=== PATIENT | female | born 1960 | race Caucasian/White ===

== ENCOUNTER → 2016-10-06 | Outpatient (CLI) | payer OTHER ==
--- NOTE | 2016-10-06 11:10 | XR ---
EXAMINATION TYPE: XR shoulder complete LT DATE OF EXAM: 10/06/2016 10:56 AM COMPARISON: NONE HISTORY: 56 year-old female left shoulder sprain after fall on 09/25/2016 TECHNIQUE: 3 views FINDINGS: There is mild degenerative spurring at the AC joint. Subacromial space there is preserved. No tendern ess or bursal calcifications. Small delineation to the greater tuberosity. Visualized left hemithorax is clear. No acute fracture or dislocation. IMPRESSION: No acute osseous abnormality seen. There is mild degenerative spurring at the AC joint.
--- NOTE | 2016-10-06 11:12 | XR ---
EXAMINATION TYPE: XR lumbar spine 2 or 3V DATE OF EXAM: 10/06/2016 10:56 AM COMPARISON: NONE HISTORY: 56 year-old female left shoulder sprain, lumbar sprain after fall on 09/25/2016 TECHNIQUE: 3 views FINDINGS: 5 lumbar type vertebral bodies. There is facet degenerative change in the lower lumbar spine. Vertebr al body heights are preserved and alignment is maintained. Disc interspaces also appear relatively ma intained. IMPRESSION: No vertebral compression collapse or malalignment. Facet arthropathy in the lower lumbar spine.
== END | disposition home or self-care (01) ==
LOC: RADXRMAIN 10:34
PROVIDERS: ATTEND Emergency Medicine
DX: M19.011 Primary osteoarthritis, right shoulder (principal); M46.96 Unspecified inflammatory spondylopathy, lumbar region
CPT/HCPCS: 72100

== ENCOUNTER → 2016-10-08 | Outpatient (CLI) | payer MEDICAID, OTHER ==
--- NOTE | 2016-10-08 13:26 | XR ---
EXAMINATION TYPE: XR clavicle LT DATE OF EXAM ORDERED: 10/08/2016 1:12 PM HISTORY: Pain following trauma. COMPARISON: Previous study dated 10/06/2016. FINDINGS: The clavicle is unremarkable. The coracoclavicular distance is normal. There are mild hype rtrophic changes present in the left AC joint. IMPRESSION: 1. NO ACUTE OSSEOUS LESION. 2. MILD DEGENERATIVE CHANGE.
== END | disposition home or self-care (01) ==
LOC: RADXRMAIN 12:54
PROVIDERS: ATTEND Emergency Medicine
DX: M25.812 Other specified joint disorders, left shoulder (principal); M25.512 Pain in left shoulder

== ENCOUNTER 2017-03-22 19:37 | Observation (INO) | payer MEDICAID ==
[2017-03-22] MEDS ORDERED: METOCLOPRAMIDE 5 MG/ML 2 ML VIAL IVP STA (20:35)
[2017-03-22] MEDS ORDERED: HYDROmorphone 1 MG/ML 1 ML SYRINGE IVP STA (20:35)
[2017-03-22] MEDS ORDERED: SODIUM CHLORIDE 0.9% 1,000 ML IV STA (20:35)
--- NOTE | 2017-03-22 20:42 | ED ---
General Adult HPI - General Chief complaint: Chest Pain Stated complaint: chest/back/abdominal pain Time Seen by Provider: 03/22/17 20:31 Source: patient, family, RN notes reviewed Mode of arrival: wheelchair Limitations: no limitations - History of Present Illness Initial comments: Patient is a pleasant 56-year-old female presenting to the emergency department with right abdominal discomfort. Patient had mild symptoms on Thursday that resolved yesterday. Symptoms have been waxing and waning throughout the day today, mostly severe. Patient has nausea and has vomited when symptoms get severe. Patient did have some chest discomfort prior to arrival however that has resolved. Discomfort is mostly right lower abdomen/flank with some extension towards the back. No history of similar symptoms previously. No fever. No hematuria or dysuria. Discomfort is moderate at this time. - Related Data Home Medications Medication Instructions Recorded Confirmed Cilostazol [Pletal] 100 mg PO HS 03/16/14 03/22/17 Multivitamins, Thera [Multivitamin 1 tab PO HS 03/16/14 03/22/17 (formulary)] Zolpidem Tartrate [Zolpidem 12.5 mg PO HS 04/21/16 03/22/17 Tartrate ER] Cyclobenzaprine [Flexeril] 10 mg PO HS 03/22/17 03/22/17 Etodolac [Lodine] 400 mg PO HS 03/22/17 03/22/17 Loratadine 10 mg PO HS 03/22/17 03/22/17 Vitamin C/Biotin [Hair, Skin and 1 tab PO HS 03/22/17 03/22/17 Nails] Previous Rx's Medication Instructions Recorded Atorvastatin [Lipitor] 20 mg PO HS #30 tab 04/24/16 Allergies Allergy/AdvReac Type Severity Reaction Status Date / Time quinine Allergy Severe Rash/Hives Verified 03/22/17 20:23 Review of Systems ROS Statement: Those systems with pertinent positive or pertinent negative responses have been documented in the HPI. ROS Other: All systems not noted in ROS Statement are negative. Constitutional: Denies: fever Eyes: Denies: eye pain ENT: Denies: ear pain Respiratory: Denies: cough Cardiovascular: Reports: chest pain (Resolved) Gastrointestinal: Reports: abdominal pain, nausea, vomiting Genitourinary: Denies: hematuria Musculoskeletal: Reports: back pain (Right lower) Skin: Denies: rash Neurological: Denies: weakness Past Medical History Past Medical History: GERD/Reflux, Osteoarthritis (OA), Sleep Apnea/CPAP/BIPAP Additional Past Medical History / Comment(s): currently experiencing upset stomach and freq diarrhea after eating.Hx NO CPAP, IRREGULAR HEART BEAT DURING , murmur, HX OF JAUNDICE 1974- HOSPITALIZED 2 WEEKS, CURVATURE OF SPINE WITH BACK PAIN, HYPOGLYCEMIA, RESTLESS LEG SYNDROME, arthritis R knee. History of Any Multi-Drug Resistant Organisms: None Reported Past Surgical History: Section, Orthopedic Surgery, Uterine Ablation Additional Past Surgical History / Comment(s): RT KNEE ARTHROSCOPY, X2 , right shoulder rotator cuff repair, x 2, R foot spur removal, colonoscopy. Past Anesthesia/Blood Transfusion Reactions: Motion Sickness, Postoperative Nausea & Vomiting (PONV) Additional Past Anesthesia/Blood Transfusion Reaction / Comment(s): mother had no problems with prior blood transfusion Past Psychological History: ADD/ADHD Smoking Status: Never smoker Past Alcohol Use History: None Reported Past Drug Use History: None Reported - Past Family History Father Family Medical History: Musculoskeletal Disorder, Neurologic Disorder Additional Family Medical History / Comment(s): Father of Brenna Gherigs disease in his 60's Mother Additional Family Medical History / Comment(s): Mother of Mylodysplasia at the age of 80 yrs. General Exam Limitations: no limitations General appearance: alert, in no apparent distress Head exam: Present: atraumatic Eye exam: Present: normal appearance, PERRL ENT exam: Present: normal oropharynx Neck exam: Present: normal inspection Respiratory exam: Present: normal lung sounds bilaterally. Absent: chest wall tenderness Cardiovascular Exam: Present: regular rate, normal rhythm Expanded Peripheral pulses: 2+: Radial (R), Radial (L), Dorsalis Pedis (R), Dorsalis Pedis (L) GI/Abdominal exam: Present: soft. Absent: distended, tenderness, guarding, rebound, rigid Extremities exam: Present: normal inspection. Absent: pedal edema, calf tenderness Back exam: Present: normal inspection. Absent: CVA tenderness (R), vertebral tenderness Neurological exam: Present: alert Psychiatric exam: Present: normal affect, normal mood Skin exam: Present: normal color Course Vital Signs 03/22/17 03/22/17 03/22/17 19:44 20:25 21:21 Temperature 98.3 F Pulse Rate 74 73 71 Respiratory 22 18 18 Rate Blood Pressure 203/91 174/70 143/73 O2 Sat by Pulse 97 92 L 71 L Oximetry EKG Findings - EKG Comments: EKG Findings:: Normal sinus rhythm 76. [place] 190. QRS 82. QT 400. QTc 450. Normal axis. Normal QRS. Normal ST-T. Medical Decision Making - Medical Decision Making Patient reevaluated and resting comfortably in bed. Patient and family updated on results and plan. Case discussed with practitioner Adriana salazar, who will admit for observation secondary to chest discomfort. She is covering for Dr. Ramírez, covering for Dr. Bradford. - Lab Data Result diagrams: 03/22/17 20:00 03/22/17 20:00 Lab Results 03/22/17 03/22/17 03/22/17 Range/Units 20:00 20:00 20:00 WBC 9.9 (3.8-10.6) k/uL RBC 5.01 (3.80-5.40) m/uL Hgb 14.6 (11.4-16.0) gm/dL Hct 43.0 (34.0-46.0) % MCV 85.8 (80.0-100.0) fL MCH 29.2 (25.0-35.0) pg MCHC 34.1 (31.0-37.0) g/dL RDW 13.3 (11.5-15.5) % Plt Count 345 (150-450) k/uL Neutrophils % 70 % Lymphocytes % 20 % Monocytes % 6 % Eosinophils % 1 % Basophils % 0 % Neutrophils # 6.9 (1.3-7.7) k/uL Lymphocytes # 2.0 (1.0-4.8) k/uL Monocytes # 0.6 (0-1.0) k/uL Eosinophils # 0.1 (0-0.7) k/uL Basophils # 0.0 (0-0.2) k/uL PT (9.0-12.0) sec INR (<1.2) APTT (22.0-30.0) sec Sodium 139 (137-145) mmol/L Potassium 4.4 (3.5-5.1) mmol/L Chloride 106 (98-107) mmol/L Carbon Dioxide 20 L (22-30) mmol/L Anion Gap 13 mmol/L BUN 23 H (7-17) mg/dL Creatinine 1.00 (0.52-1.04) mg/dL Est GFR (MDRD) Af Amer >60 (>60 ml/min/1.73 sqM) Est GFR (MDRD) Non-Af 57 (>60 ml/min/1.73 sqM) Glucose 94 (74-99) mg/dL Calcium 9.9 (8.4-10.2) mg/dL Total Bilirubin 0.5 (0.2-1.3) mg/dL AST 33 (14-36) U/L ALT 44 (9-52) U/L Alkaline Phosphatase 119 (38-126) U/L Total Creatine Kinase 82 (30-135) U/L CK-MB (CK-2) 1.4 (0.0-2.4) ng/mL CK-MB (CK-2) Rel Index 1.7 Troponin I <0.012 (0.000-0.034) ng/mL Total Protein 7.2 (6.3-8.2) g/dL Albumin 4.5 (3.5-5.0) g/dL Amylase 57 (30-110) U/L Lipase 185 (23-300) U/L 03/22/17 Range/Units 20:00 WBC (3.8-10.6) k/uL RBC (3.80-5.40) m/uL Hgb (11.4-16.0) gm/dL Hct (34.0-46.0) % MCV (80.0-100.0) fL MCH (25.0-35.0) pg MCHC (31.0-37.0) g/dL RDW (11.5-15.5) % Plt Count (150-450) k/uL Neutrophils % % Lymphocytes % % Monocytes % % Eosinophils % % Basophils % % Neutrophils # (1.3-7.7) k/uL Lymphocytes # (1.0-4.8) k/uL Monocytes # (0-1.0) k/uL Eosinophils # (0-0.7) k/uL Basophils # (0-0.2) k/uL PT 10.7 (9.0-12.0) sec INR 1.1 (<1.2) APTT 24.2 (22.0-30.0) sec Sodium (137-145) mmol/L Potassium (3.5-5.1) mmol/L Chloride (98-107) mmol/L Carbon Dioxide (22-30) mmol/L Anion Gap mmol/L BUN (7-17) mg/dL Creatinine (0.52-1.04) mg/dL Est GFR (MDRD) Af Amer (>60 ml/min/1.73 sqM) Est GFR (MDRD) Non-Af (>60 ml/min/1.73 sqM) Glucose (74-99) mg/dL Calcium (8.4-10.2) mg/dL Total Bilirubin (0.2-1.3) mg/dL AST (14-36) U/L ALT (9-52) U/L Alkaline Phosphatase (38-126) U/L Total Creatine Kinase (30-135) U/L CK-MB (CK-2) (0.0-2.4) ng/mL CK-MB (CK-2) Rel Index Troponin I (0.000-0.034) ng/mL Total Protein (6.3-8.2) g/dL Albumin (3.5-5.0) g/dL Amylase (30-110) U/L Lipase (23-300) U/L - Radiology Data Radiology results: image reviewed (Computed tomography scan abdomen pelvis shows bilateral renal parapelvic cyst. Right hydroureter and probable 4 mm stone distal right ureter. Normal appendix. Two-view chest x-ray shows no acute process.) Disposition Clinical Impression: Chest pain, Ureterolithiasis Disposition: ADMITTED IP TO THIS [facility] Referrals: Chuck Bradford DO [Primary Care Provider] - 1-2 days Decision Time: 21:57
[2017-03-22 20:55] LABS: Basophils % (A) 0 %; CH 30.2; CHCM 35.3; Eosinophils # (A) 0.1 k/uL (0-0.7); Eosinophils % (A) 1 %; HDW 2.38; HGB 14.6 gm/dL (11.4-16.0); Luc # (Auto) 0.26; Luc % (Auto) 3; Lymphocytes % (A) 20 %; MCH 29.2 pg (25.0-35.0); MCHC 34.1 g/dL (31.0-37.0); MCV 85.8 fL (80.0-100.0); Mean Platelet Volume 6.8; Monocytes # (A) 0.6 k/uL (0-1.0); Monocytes % (A) 6 %; Neutrophils # (A) 6.9 k/uL (1.3-7.7); Neutrophils % (A) 70 %; RBC 5.01 m/uL (3.80-5.40); RDW 13.3 % (11.5-15.5); WBC 9.9 k/uL (3.8-10.6); WBC (Perox) 8.98
[2017-03-22 21:06] LABS: INR 1.1 (<1.2); Partial Thromboplastin Time 24.2 sec (22.0-30.0); Prothrombin Time 10.7 sec (9.0-12.0)
[2017-03-22 21:15] LABS: Creatine Kinase 82 U/L (30-135)
[2017-03-22 21:28] LABS: Creatine Kinase MB 1.4 ng/mL (0.0-2.4); Troponin I <0.012 ng/mL (0.000-0.034)
[2017-03-22 21:31] LABS: ALT 44 U/L (9-52); AST 33 U/L (14-36); Alkaline Phosphatase 119 U/L (38-126); Amylase 57 U/L (30-110); Anion Gap 13 mmol/L; Blood Urea Nitrogen 23 mg/dL (7-17); Calcium 9.9 mg/dL (8.4-10.2); Carbon Dioxide 20 mmol/L (22-30); Chloride 106 mmol/L (98-107); Glucose 94 mg/dL (74-99); Non-African American GFR(MDRD) 57 (>60 ml/min/1.73 sqM); Potassium 4.4 mmol/L (3.5-5.1); Sodium 139 mmol/L (137-145); Total Bilirubin 0.5 mg/dL (0.2-1.3); Total Protein 7.2 g/dL (6.3-8.2)
--- NOTE | 2017-03-22 21:43 | CT ---
EXAMINATION TYPE: CT abdomen pelvis wo con DATE OF EXAM: 03/22/2017 COMPARISON: NONE HISTORY: Abdominal pain that radiates into back. CT DLP: 1254.2 mGycm Automated exposure control for dose reduction was used. TECHNIQUE: Helical acquisition of images was performed from the lung bases through the pelvis. FINDINGS: Lung bases are clear of consolidation. There is no pleural effusion. Liver spleen pancreas appear nor mal. There are clips from cholecystectomy. Bile ducts are not dilated. There is no adrenal mass. Ther e are multiple bilateral renal parapelvic cysts. Right ureter appears dilated. There is a possible 4 mm calculus in the distal right ureter. Bladder distends smoothly. There are ankylotic changes in the lower thoracic spine. I see no focal bone destruction. Thoracic aorta is atheromatous. There is no a scites. I see no intestinal wall thickening. There are sigmoid diverticula. There is no sign of diver ticulitis. There is no retroperitoneal adenopathy. IMPRESSION: NUMEROUS BILATERAL RENAL PARAPELVIC CYSTS. THERE IS EVIDENCE OF RIGHT HYDROURETER AND PROBABLE SMALL STONE IN THE DISTAL RIGHT URETER NEAR THE BLADDER. NORMAL APPENDIX. MILD SIGMOID DIVERTICULOSIS.
--- NOTE | 2017-03-22 21:47 | XR ---
EXAMINATION TYPE: XR chest 2V DATE OF EXAM: 03/22/2017 COMPARISON: 04/21/2016 HISTORY: Short of breath TECHNIQUE: Frontal and lateral views of the chest are obtained. FINDINGS: There is no heart failure nor confluent pneumonic infiltrate. There are no hilar masses. T here are chest leads. Bony thorax is intact. IMPRESSION: No active cardiopulmonary disease. No change.
[2017-03-22] MEDS ORDERED: NITROGLYCERIN SL TABS 0.4 MG TAB SUBLINGUAL PRN (21:57)
[2017-03-22] MEDS ORDERED: ASPIRIN 81 MG PO STA (21:57)
[2017-03-22 22:14] LABS: Amorphous Sediment,Urine Few /hpf; Appearance,Urine Cloudy (Clear); Bilirubin,Urine Negative (Negative); Glucose,Urine (UA) Negative (Negative); Ketones,Urine 1+ (Negative); Leukocyte Esterase,Urine Moderate (Negative); Mucus,Urine Rare /hpf; Nitrite,Urine Negative (Negative); PH, Urine 7.5 (5.0-8.0); Particle Count 7469; Protein,Urine Negative (Negative); RBC,Urine 40 /hpf (0-5); Squamous Epithelial Cell,Urine <1 /hpf (0-4); UA Billing (MACRO vs. MICRO) MICRO; Urobilinogen,Urine <2.0 mg/dL (<2.0); WBC,Urine 7 /hpf (0-5)
[2017-03-22 23:34] VITALS: BMI 38.1
[2017-03-23] MEDS: NITROGLYCERIN OINT 1 INCH/GM PACKET TOPICAL SCH ×4 (00:27→19:39)
[2017-03-23 01:57] LABS: Creatine Kinase 62 U/L (30-135)
[2017-03-23 02:10] LABS: Creatine Kinase MB 1.1 ng/mL (0.0-2.4); Troponin I <0.012 ng/mL (0.000-0.034)
[2017-03-23] MEDS: HYDROmorphone 1 MG/ML 1 ML SYRINGE IVP PRN ×4 (06:32→23:58)
[2017-03-23 08:58] LABS: Cholesterol 150 mg/dL (<200); HDL Cholesterol 64 mg/dL (40-60)
[2017-03-23 09:10] LABS: Creatine Kinase 50 U/L (30-135)
[2017-03-23] MEDS: ASPIRIN 325 MG TAB PO SCH (09:19)
[2017-03-23 09:22] LABS: Creatine Kinase MB 0.9 ng/mL (0.0-2.4); Troponin I <0.012 ng/mL (0.000-0.034)
--- NOTE | 2017-03-23 10:50 | CONS ---
This is a 56-year-old lady who came into the hospital with right-sided flank pain with radiation to the pubic area. She called the [address] to the hospital also had some sharp pain in the chest that lasted a few seconds. She felt concerned and therefore I am seeing her for chest pain. The pain has resolved, lasted a few seconds. Quality is atypical. She had a stress echo in April of last year which was normal. She walked for nearly 6 minutes. Heart rate of 153 beats per minute. She has hyperlipidemia and no other major medical problems at this time. She has had previous gallbladder surgery as well. Investigation here suggested she had renal stones and right-sided hydroureter and her symptoms of flank pain with radiation to the pubic area suggests renal stone related symptoms. She is resting comfortably. PAST MEDICAL HISTORY: 1. Hyperlipidemia. 2. Status post gallbladder surgery. 3. History of atypical chest pain with negative workup with normal echo and normal stress echo in April of last year. Medications include: Lodine, Flexeril, Pletal, Lipitor, Ambien. ALLERGIES: QUININE. REVIEW OF SYSTEMS: Unremarkable other than above mentioned facts. On examination, blood pressure 130/70, pulse rate 70 per minute and regular. HEENT: Unremarkable. Fundus was not examined by me. NECK: Supple. No JVD. I do not hear a carotid bruit. There is no thyromegaly. HEART: Exam reveals a S1, S2 heard normally. No rub, murmur or gallop. LUNGS: Clear. ABDOMEN: Soft. There is some tenderness in the right costophrenic angle. LOWER EXTREMITIES: Reveal palpable pulses. No edema. CENTRAL NERVOUS SYSTEM: Normal. EKG reveals sinus mechanism. No acute changes. LABORATORY DATA: Revealed unremarkable troponins. White count is normal. IMPRESSION: 1. Renal stones with right-sided hydroureter. 2. Atypical chest pain. 3. Hyperlipidemia. RECOMMENDATIONS: From a cardiac standpoint, no further intervention necessary. She is awaiting to be seen by Urologist and further intervention based on urology evaluation. Cardiac-becerra no workup is necessary. I will see her as needed. Thank you very much for the consult. GUSTABO
--- NOTE | 2017-03-23 12:08 | P.GSCN ---
History of Present Illness Consult date: 03/23/17 History of present illness: The patient is a pleasant 56-year-old female who last [place] developed some acute right sided flank right anterior abdominal and chest pain. It subsided after taking some Motrin only to reappear intermittently over the weekend. She developed some nausea and vomiting. The pain became severe such that she presented to the emergency room. She had this atypical chest pain also. She was evaluated with a computed tomography scan identifying right-sided hydroureteronephrosis due to a probable distal ureteral stone, 4 mm on the right. She had some atypical pain and was seen by Dr. PRATIBHA Milton who has cleared her from a cardiac standpoint. The patient is never had a stone. She is comfortable at present but had Dilaudid in the last hour and a half. She has had no fever and chills. She has no major urologic issues. There's been no hematuria. There are no other stones in the kidney. She does have bilateral renal cysts. Review of Systems - Cardiovascular Reports chest pain - Gastrointestinal Reports abdominal pain, Reports nausea - Genitourinary Genitourinary: Reports flank pain Past Medical History Past Medical History: GERD/Reflux, Osteoarthritis (OA), Sleep Apnea/CPAP/BIPAP Additional Past Medical History / Comment(s): currently experiencing upset stomach and freq diarrhea after eating.Hx NO CPAP, IRREGULAR HEART BEAT DURING , murmur during , HX OF JAUNDICE 1974- HOSPITALIZED 2 WEEKS, CURVATURE OF SPINE WITH BACK PAIN, HYPOGLYCEMIA, RESTLESS LEG SYNDROME, arthritis R knee. History of Any Multi-Drug Resistant Organisms: None Reported Past Surgical History: Section, Cholecystectomy, Orthopedic Surgery, Uterine Ablation Additional Past Surgical History / Comment(s): RT KNEE ARTHROSCOPY, X2 , right shoulder rotator cuff repair,, R foot spur removal, colonoscopy. Past Anesthesia/Blood Transfusion Reactions: Motion Sickness, Postoperative Nausea & Vomiting (PONV) Additional Past Anesthesia/Blood Transfusion Reaction / Comm: mother had no problems with prior blood transfusion Smoking Status: Never smoker - Past Family History Father Family Medical History: Musculoskeletal Disorder, Neurologic Disorder Additional Family Medical History / Comment(s): Father of Brenna Gherigs disease in his 60's Mother Family Medical History: Diabetes Mellitus, Hypertension Additional Family Medical History / Comment(s): Mother of Mylodysplasia at the age of 80 yrs. Medications and Allergies Home Medications Medication Instructions Recorded Confirmed Type Cilostazol [Pletal] 100 mg PO HS 03/16/14 03/22/17 History Multivitamins, Thera [Multivitamin 1 tab PO HS 03/16/14 03/22/17 History (formulary)] Zolpidem Tartrate [Zolpidem 12.5 mg PO HS 04/21/16 03/22/17 History Tartrate ER] Cyclobenzaprine [Flexeril] 10 mg PO HS 03/22/17 03/22/17 History Etodolac [Lodine] 400 mg PO HS 03/22/17 03/22/17 History Loratadine 10 mg PO HS 03/22/17 03/22/17 History Vitamin C/Biotin [Hair, Skin and 1 tab PO HS 03/22/17 03/22/17 History Nails] Allergies Allergy/AdvReac Type Severity Reaction Status Date / Time quinine Allergy Severe Rash/Hives Verified 03/22/17 23:25 Surgical - Exam Vital Signs Temp Pulse Resp BP Pulse Ox 98.3 F 74 22 203/91 97 03/22/17 19:44 03/22/17 19:44 03/22/17 19:44 03/22/17 19:44 03/22/17 19:44 - General well developed, well nourished, no distress - Eyes PERRL - ENT no hearing loss - Neck trachea midline - Respiratory normal expansion, normal respiratory effort - Cardiovascular Rhythm: regular - Abdomen Abdomen: soft, non tender - Integumentary no rash - Neurologic normal coordination, normal sensation - Musculoskeletal normal posture - Psychiatric oriented to time, oriented to person, oriented to place, speech is normal, memory intact Results - Labs 03/22/17 20:00 03/22/17 20:00 Abnormal Lab Results - Last 24 Hours (Table) 03/22/17 03/22/17 03/23/17 Range/Units 20:00 21:50 08: Carbon Dioxide 20 L (22-30) mmol/L BUN 23 H (7-17) mg/dL HDL Cholesterol 64 H (40-60) mg/dL Urine Appearance Cloudy H (Clear) Urine Ketones 1+ H (Negative) Urine Blood Large H (Negative) Ur Leukocyte Esterase Moderate H (Negative) Urine RBC 40 H (0-5) /hpf Urine WBC 7 H (0-5) /hpf Amorphous Sediment Few H (None) /hpf Urine Mucus Rare H (None) /hpf Diabetes panel 03/22/17 03/23/17 Range/Units 20:00 08:17 Sodium 139 (137-145) mmol/L Potassium 4.4 (3.5-5.1) mmol/L Chloride 106 (98-107) mmol/L Carbon Dioxide 20 L (22-30) mmol/L BUN 23 H (7-17) mg/dL Creatinine 1.00 (0.52-1.04) mg/dL Glucose 94 (74-99) mg/dL Calcium 9.9 (8.4-10.2) mg/dL AST 33 (14-36) U/L ALT 44 (9-52) U/L Alkaline Phosphatase 119 (38-126) U/L Total Protein 7.2 (6.3-8.2) g/dL Albumin 4.5 (3.5-5.0) g/dL Triglycerides 53 (<150) mg/dL HDL Cholesterol 64 H (40-60) mg/dL Calcium panel 03/22/17 Range/Units 20:00 Calcium 9.9 (8.4-10.2) mg/dL Albumin 4.5 (3.5-5.0) g/dL Pituitary panel 03/22/17 Range/Units 20:00 Sodium 139 (137-145) mmol/L Potassium 4.4 (3.5-5.1) mmol/L Chloride 106 (98-107) mmol/L Carbon Dioxide 20 L (22-30) mmol/L BUN 23 H (7-17) mg/dL Creatinine 1.00 (0.52-1.04) mg/dL Glucose 94 (74-99) mg/dL Calcium 9.9 (8.4-10.2) mg/dL Adrenal panel 03/22/17 Range/Units 20:00 Sodium 139 (137-145) mmol/L Potassium 4.4 (3.5-5.1) mmol/L Chloride 106 (98-107) mmol/L Carbon Dioxide 20 L (22-30) mmol/L BUN 23 H (7-17) mg/dL Creatinine 1.00 (0.52-1.04) mg/dL Glucose 94 (74-99) mg/dL Calcium 9.9 (8.4-10.2) mg/dL Total Bilirubin 0.5 (0.2-1.3) mg/dL AST 33 (14-36) U/L ALT 44 (9-52) U/L Alkaline Phosphatase 119 (38-126) U/L Total Protein 7.2 (6.3-8.2) g/dL Albumin 4.5 (3.5-5.0) g/dL Assessment and Plan Plan: Impression: Right ureteral calculus causing obstruction and colic. Chest pain secondary to the stone and probable diaphragmatic irritation. Recommendations: This stone is 4 mm and has a high probable chance of spontaneous passage. Indications to intervene however are persistent pain and intermittent pain fever or chills or perhaps work/social reasons to remove the stone. At present I have encouraged her to ambulate and see how she does over the next 24 hours with regards to her pain. For pain can be controlled without IV narcotics she can be discharged home for spontaneous passage. If however the pain persists she may need a urologic intervention. I'll follow this patient.
[2017-03-23] MEDS ORDERED: TAMSULOSIN 0.4 MG CAP.ER.24H PO STA (12:09)
[2017-03-23] MEDS ORDERED: MULTIVITAMINS, THERA 1 EACH TAB PO SCH (21:00)
[2017-03-23] MEDS ORDERED: NON-FORMULARY DRUG (Vitamin C/Biotin [Hair, Skin And Nails] 1 TAB) PO SCH (21:00)
[2017-03-23] MEDS ORDERED: CYCLOBENZAPRINE 10 MG TAB PO SCH (21:00)
[2017-03-23] MEDS ORDERED: ATORVASTATIN 20 MG TAB PO SCH (21:00)
[2017-03-23] MEDS ORDERED: ZOLPIDEM 5 MG TAB PO SCH (21:00)
[2017-03-23] MEDS ORDERED: LORATADINE 10 MG TAB PO SCH (21:00)
[2017-03-24] MEDS: NITROGLYCERIN OINT 1 INCH/GM PACKET TOPICAL SCH ×2 (01:05→04:40)
--- NOTE | 2017-03-24 06:45 | P.PN ---
Subjective The patient is in the hospital with an acute ureteral colic the right side due to a 4 millimeter ureteral stone. She had a lot of colic yesterday but has not had a shot for over 8 hours and is feeling much better. She has not passed a stone. Her vital signs are stable. I think this patient can be discharged home for spontaneous passage as this is what she desires. I would like to see her in the office in one week or sooner if the pain returns significantly. He should go home with urine strainer and some pain medicines. He stands that if her colic returns he can contact us at any time. We can always intervene in the future if necessary. She should be able to pass this spontaneously. Objective - Vital Signs Vital signs: Vital Signs Temp 98.2 F 03/24/17 04:00 Pulse 70 03/24/17 04:00 Resp 16 03/24/17 04:00 BP 150/65 03/24/17 04:00 Pulse Ox 94 L 03/24/17 04:00 Intake & Output 03/23/17 03/23/17 03/24/17 06:59 18:59 06:59 Intake Total 240 Balance 240 Weight 104 kg Intake: Oral 240 Other: Voiding Method Toilet Toilet # Voids 1 2 4 - Labs CBC & Chem 7: 03/22/17 20:00 03/22/17 20:00 Labs: Abnormal Lab Results - Last 24 Hours (Table) 03/23/17 Range/Units 08:17 HDL Cholesterol 64 H (40-60) mg/dL
[2017-03-24 07:43] VITALS: BP 129/67; PULSE 72; RESP 18; TEMP 97.9
[2017-03-24] MEDS: ASPIRIN 325 MG TAB PO SCH (08:20)
--- NOTE | 2017-05-27 19:29 | HP ---
HISTORY AND PHYSICAL HISTORY AND PHYSICAL AND DISCHARGE SUMMARY: DATE OF ADMISSION: 03/22/2017. DISCHARGE DATE: 03/24/2017. The patient is a pleasant 56-year-old white female who was admitted to the hospital through the emergency department. She presented to the emergency department with right abdominal pain with colicky type behavior, severe at times, extending toward her back or flank area. She denies any hematuria or dysuria. Discomfort is severe at times. MEDICATIONS: Medications include: 1. Pletal. 2. Ambien. 3. Flexeril. 4. Lodine. 5. Loratadine. 6. Multivitamin. She was previously on Lipitor. ALLERGIES: QUININE. REVIEW OF SYSTEMS: EYES: Denies any blurred vision. She denies any fever. She denies any sore throat or cough. She denies any chest pain. She admits to abdominal pain, as mentioned above in chief complaint, nausea and vomiting and right flank pain. She denies any rash. She denies any confusion. PAST MEDICAL HISTORY: 1. GERD. 2. Osteoarthritis. 3. Obstructive sleep apnea. PAST SURGICAL HISTORY: 1. . 2. Uterine ablation surgery. 3. Orthopedic knee surgery. 4. Rotator cuff repair. 5. Colonoscopy. 6. Right foot surgery. PSYCHOSOCIAL: The patient denies any alcohol use, drug abuse or smoking. PAST FAMILY HISTORY: Father had Brenna Gehrig's disease and in his 60s. Mother of myelodysplasia in her 80s. PHYSICAL EXAM: She is alert and oriented x3, in no acute distress at this time. Her pain is relatively under good control. HEAD: Normocephalic and atraumatic. Sclerae nonicteric. NECK: Supple. No JVD. HEART: Regular rate and rhythm. ABDOMEN: Soft with right-sided discomfort. No rebound, rigidity or guarding. Skin is warm and dry to palpation. PSYCHOLOGICAL: She answers questions appropriately. IMPRESSIONS: 1. Acute abdominal pain. 2. Ureterolithiasis measuring 4 mm. HOSPITAL COURSE AND PLAN: Patient was admitted. She was hydrated and pain was controlled. She was seen by Urology, who stated that she has not passed the stone, and he recommended that patient be discharged for spontaneous passage at home. He would like to see her in the office in 1 week. The patient was very agreeable to this plan. She was placed on a new prescription for pain relief in the form of Cartwright. She was to continue her Pletal, her Lipitor, Flexeril, Lodine, loratadine and vitamins. She will follow up with Dr. Goff in 1 week and with me as needed. MMODL / IJN: [id number] /
== END 2017-03-24 11:02 | disposition home or self-care (01) ==
LOC: EC 19:37 → 3OBS 21:57
PROVIDERS: ADMIT Family Medicine; ATTEND Family Medicine
DX: N13.2 Hydronephrosis with renal and ureteral calculous obstruction (principal); R07.89 Other chest pain; K21.9 Gastro-esophageal reflux disease without esophagitis; G25.81 Restless legs syndrome; M17.11 Unilateral primary osteoarthritis, right knee; F90.9 Attention-deficit hyperactivity disorder, unspecified type; E78.5 Hyperlipidemia, unspecified; N28.1 Cyst of kidney, acquired; M43.9 Deforming dorsopathy, unspecified; G47.33 Obstructive sleep apnea (adult) (pediatric); Z79.899 Other long term (current) drug therapy; Z79.02 Long term (current) use of antithrombotics/antiplatelets; Z88.8 Allergy status to other drugs, medicaments and biological substances; Z99.89 Dependence on other enabling machines and devices; Z90.49 Acquired absence of other specified parts of digestive tract; Z83.3 Family history of diabetes mellitus; Z82.49 Family history of ischemic heart disease and other diseases of the circulatory system
CPT/HCPCS: 96375 ×3; 96361 ×4; 99285 ×2; 96365; 96366 ×2; 96376; 36415; 93005; 80061; 80053; 82150; 82550 ×2; 82553 ×2; 83690; 84484 ×2; 85025; 85610; 85730; 81001; 71020; 74176; G0378 ×3; J2765; J0696 ×3; J1170 ×2

== ENCOUNTER → 2017-05-04 | Outpatient (CLI) | payer MEDICAID ==
[2017-05-04 16:05] VITALS: BP 164/95; PULSE 72; TEMP 98.7; BMI 39.4
--- NOTE | 2017-05-04 16:12 | P.HPBAR ---
Bariatric H&P - History & Physicial H&P Date: 05/04/17 History & Physicial: Visit/CC: initial clinic visit Patient initial contact: Initial weight: Initial weight in pounds: Height: 5 ft 6 in Initial BMI: Last weight: Current weight: 110.858 kg Current weight in pounds: 244.40 Current BMI: 39.4 [place] body weight (based on NIH guidelines): 58.967 kg Excess body weight loss: The patient is a 56 year-old F who presents for Bariatric Assessment. Patient presents today for new patient consultation for laparoscopic sleeve gastrectomy. Her BMI is 40. She's had lifetime problems obesity. She has developed severe comorbidities related to morbid obesity. Patient is a known history of hiatal hernia and GERD. Past Medical History Past Medical History: GERD/Reflux, Osteoarthritis (OA), Sleep Apnea/CPAP/BIPAP Additional Past Medical History / Comment(s): currently experiencing upset stomach and freq diarrhea after eating.Hx NO CPAP, IRREGULAR HEART BEAT DURING , murmur during , HX OF JAUNDICE 1973- HOSPITALIZED 2 WEEKS, CURVATURE OF SPINE WITH BACK PAIN, HYPOGLYCEMIA, RESTLESS LEG SYNDROME, arthritis R knee. History of Any Multi-Drug Resistant Organisms: None Reported Past Surgical History: Section, Cholecystectomy, Orthopedic Surgery, Uterine Ablation Additional Past Surgical History / Comment(s): RT KNEE ARTHROSCOPY, X2 , right shoulder rotator cuff repair,, R foot spur removal, colonoscopy. Past Anesthesia/Blood Transfusion Reactions: Motion Sickness, Postoperative Nausea & Vomiting (PONV) Additional Past Anesthesia/Blood Transfusion Reaction / Comm: mother had no problems with prior blood transfusion Smoking Status: Never smoker - Past Family History Father Family Medical History: Musculoskeletal Disorder, Neurologic Disorder Additional Family Medical History / Comment(s): Father of Brenna Gherigs disease in his 60's Mother Family Medical History: Diabetes Mellitus, Hypertension Additional Family Medical History / Comment(s): Mother of Mylodysplasia at the age of 80 yrs. Surgical - Exam Vital Signs Temp Pulse BP 98.7 F 72 164/95 05/04/17 15:59 05/04/17 15:59 05/04/17 15:59 - General well developed, no distress - Eyes PERRL - Abdomen Abdomen: soft, non tender Bariatric Assessment & Plan Plan: Morbid obesity with severe comorbidities.'s. The patient had a lengthy discussion regarding sleeve gastrectomy. I went over the risks and benefits of procedure. I discussed with the possibility of gastric staple line disruption. The patient will follow-up in 3 months. Bariatric Checklist Checklist: Plan: Checklist: EGD: 1. Hiatal hernia: 2. H. Pylori: HgbA1c: Vitamin D: Smoking: Never smoker Primary care physician referral: dr hernandez Psychiatry clearance: Cardiology clearance: Sleep study: Diet journal: VTE risk score: VTE risk level: Rehab needs at discharge:
[2017-05-04 16:41] LABS: EKG EKG PERFORMED
[2017-05-04 17:06] LABS: CH 30.6; CHCM 34.1; HCT 42.2 % (34.0-46.0); HDW 2.45; HGB 13.8 gm/dL (11.4-16.0); MCH 29.6 pg (25.0-35.0); MCHC 32.7 g/dL (31.0-37.0); MCV 90.3 fL (80.0-100.0); Mean Platelet Volume 7.1; RBC 4.67 m/uL (3.80-5.40); RDW 13.9 % (11.5-15.5); WBC 5.5 k/uL (3.8-10.6)
[2017-05-04 17:19] LABS: ALT 38 U/L (9-52); AST 27 U/L (14-36); Alkaline Phosphatase 105 U/L (38-126); Anion Gap 9 mmol/L; Blood Urea Nitrogen 20 mg/dL (7-17); Calcium 9.8 mg/dL (8.4-10.2); Carbon Dioxide 25 mmol/L (22-30); Chloride 105 mmol/L (98-107); Cholesterol 147 mg/dL (<200); Glucose 85 mg/dL (74-99); HDL Cholesterol 68 mg/dL (40-60); Iron 89 ug/dL (37-170); Non-African American GFR(MDRD) >60 (>60 ml/min/1.73 sqM); Potassium 4.7 mmol/L (3.5-5.1); Sodium 139 mmol/L (137-145); Total Bilirubin 0.4 mg/dL (0.2-1.3); Total Protein 6.9 g/dL (6.3-8.2)
[2017-05-04 17:27] LABS: % Iron Saturation 28.2 % (20-50); Total Iron Binding Capacity 316 ug/dL (265-497)
[2017-05-04 18:11] LABS: Vitamin B12 573 pg/mL (239-931)
[2017-05-04 22:18] LABS: Hemoglobin A1C 5.8 % (4.2-6.1)
== END | disposition home or self-care (01) ==
LOC: BARWHC3 15:22
PROVIDERS: ATTEND Surgery
DX: Z01.818 Encounter for other preprocedural examination (principal); E66.01 Morbid (severe) obesity due to excess calories; K21.9 Gastro-esophageal reflux disease without esophagitis; E89.1 Postprocedural hypoinsulinemia; E55.9 Vitamin D deficiency, unspecified; D50.8 Other iron deficiency anemias
CPT/HCPCS: 36415; 80053; 80061; 82306; 82607; 82728; 83036; 83540; 83550; 85027; 93005; 99211

== ENCOUNTER → 2017-08-10 | Outpatient (CLI) | payer MEDICAID | END | disposition home or self-care (01) | LOC: BARWHC3 15:47 | PROVIDERS: ATTEND Surgery | DX: Z53.9 Procedure and treatment not carried out, unspecified reason (principal) ==

== ENCOUNTER → 2017-09-28 | Outpatient (CLI) | payer MEDICAID ==
[2017-09-28 13:09] VITALS: BMI 40.3
== END | disposition home or self-care (01) ==
LOC: BARWHC3 08:42
PROVIDERS: ATTEND Surgery
DX: E66.01 Morbid (severe) obesity due to excess calories (principal); Z68.41 Body mass index [BMI] 40.0-44.9, adult; Z71.3 Dietary counseling and surveillance
CPT/HCPCS: 97804

== ENCOUNTER → 2018-09-09 | Outpatient (CLI) | payer MEDICAID ==
--- NOTE | 2018-09-09 14:40 | XR ---
EXAMINATION TYPE: XR foot complete LT DATE OF EXAM: 09/09/2018 CLINICAL HISTORY: Persistent lateral left foot pain for months. TECHNIQUE: Frontal, lateral, and oblique images of the left foot are obtained. COMPARISON: Radiographs of the right foot dated 07/01/2017 FINDINGS: There is no acute fracture/dislocation evident in the left foot. There is joint space narr owing of the distal interphalangeal joints with small marginal osteophytes. The remaining joint space s in the left foot appear within normal limits. There is a small infracalcaneal enthesophyte/spur. T he overlying soft tissue appears unremarkable. IMPRESSION: There is no acute fracture or dislocation in the left foot. Minimal forefoot arthropathy is seen. Small plantar enthesophyte/heel spurs spur is noted.
== END | disposition home or self-care (01) ==
LOC: RADXRMAIN 13:40
PROVIDERS: ATTEND Podiatrist Foot & Ankle Surgery
DX: M19.072 Primary osteoarthritis, left ankle and foot (principal)

== ENCOUNTER → 2019-02-18 | Outpatient (CLI) | payer MEDICAID ==
--- NOTE | 2019-02-18 09:47 | FL ---
EXAMINATION: Cervical and Thoracic Esophagram DATE OF EXAM: 02/18/2019 CLINICAL INDICATION: 58-year-old female dysphagia, GERD for 2 years. COMPARISON: None Total Fluoroscopy Time: 1 minute 18 seconds. Total images: 37 FINDINGS: The swallowing mechanism is normal and hypopharyngeal anatomy is preserved. The cervical and thoracic portions have a normal course and caliber caliber. However, [id number] e tertiary peristaltic contractions are noted. There is some residual contrast which remains along th e middle third of the thoracic esophagus with bouts of intraesophageal reflux. The mucosa is normal and no persistent filling defect is encountered. There is a moderate-sized sliding hiatal hernia which shows prominent size increase when the patient is prone/supine. In the upright position, no hiatal hernia was initially identified. The hiatal hernia shows retrograde filling with contrast and Valsalva maneuvers resulted in severe ga stroesophageal reflux to the level of the thoracic inlet. IMPRESSION: 1. Moderate-sized sliding hiatal hernia with severe gastroesophageal reflux to the level of the thora cic inlet. 2. Mild to moderate dysmotility with bouts of intraesophageal reflux and delayed clearance from the m iddle third of the esophagus.
== END | disposition home or self-care (01) ==
LOC: RADUSWWP 08:51
PROVIDERS: ATTEND Surgery Plastic and Reconstructive Surgery
DX: K44.9 Diaphragmatic hernia without obstruction or gangrene (principal); K21.9 Gastro-esophageal reflux disease without esophagitis; K22.4 Dyskinesia of esophagus; Z88.8 Allergy status to other drugs, medicaments and biological substances
CPT/HCPCS: 74220

== ENCOUNTER → 2019-02-23 | Day surgery (SDC) | payer MEDICAID ==
[2019-02-18 17:51] VITALS: BMI 38.7
[~2019-02-23] MED LIST: LIDOCAINE 2% GEL 30 ML TUBE ENDOTRACHE ONE
[2019-02-23 13:19] VITALS: BP 140/84; PULSE 87; RESP 18; TEMP 98.7
--- NOTE | 2019-03-04 14:34 | PCN ---
PROCEDURE NOTE DATE OF SERVICE: 02/23/2019 REQUESTING PHYSICIAN: Dr. Mclaughlin and Dr. Chuck Bradford. BRIEF HISTORY: The patient is a 58-year-old pleasant white female with long-standing history of epigastric pain/GERD and hiatal hernia. She recently had a barium esophagogram done that showed moderate-size hiatal hernia with severe gastroesophageal reflux to the level of the thoracic outlet. Also, there was evidence of mild to moderate dysmotility with bouts of intraesophageal reflux and delayed clearance from the middle third of the esophagus. Because of clinical suspicion for esophageal dysmotility, the patient is scheduled for an esophageal manometry prior to consideration for hiatal hernia surgery. PROCEDURE PERFORMED: High-resolution impedance esophageal manometry. PREOPERATIVE DIAGNOSIS: Gastroesophageal reflux disease/intermittent dysphagia to solids/moderate-size hiatal hernia. PROCEDURE: After informed consent was obtained from the patient, she was brought into the endoscopy unit. The manometry catheter was passed in the external nostril, was gently advanced to the esophagus and into the stomach and the study was performed by endoscopy nurse. The study was interpreted using Sawyer classification. RESULTS: 1. Mean IRP (mean integral residual pressure) 10 mmHg. 2. Mean DCI is 3501 mmHg-S-cm. 3. Peristaltic contractions 100%. 4. Distal latency 60% (normal less than 20%). 5. Impedance study complete transit with liquids 0%. 6. Complete transit with viscous 0%. INTERPRETATION: The above esophageal manometry study shows normal lower esophageal sphincter pressures as seen by normal IRP and the peristalsis involving the proximal and distal body of the esophagus as well within normal limits. However, there is 0% bolus transit with both liquid as well as with viscous raising the possibility of a functional obstruction, but there is no evidence of manometric criteria for esophageal achalasia. MMODL / IJN: [id number] /
== END ==
LOC: ORWHC2ENDO 13:05
PROVIDERS: ATTEND Internal Medicine Gastroenterology
DX: K22.9 Disease of esophagus, unspecified (principal); R13.10 Dysphagia, unspecified; K21.9 Gastro-esophageal reflux disease without esophagitis; K44.9 Diaphragmatic hernia without obstruction or gangrene
CPT/HCPCS: 91010

== ENCOUNTER → 2019-04-05 | Outpatient (CLI) | payer MEDICAID | END | disposition home or self-care (01) | LOC: LABPAT 15:54 | PROVIDERS: ATTEND Surgery Plastic and Reconstructive Surgery | DX: Z01.810 Encounter for preprocedural cardiovascular examination (principal) | CPT/HCPCS: 93005 ==

== ENCOUNTER → 2019-05-13 | Outpatient (CLI) | payer MEDICAID ==
[2019-05-13 13:10] LABS: HCT 40.7 % (34.0-46.0); HGB 13.9 gm/dL (11.4-16.0); MCH 29.3 pg (25.0-35.0); MCHC 34.1 g/dL (31.0-37.0); MCV 86.1 fL (80.0-100.0); Platelet Count 319 k/uL (150-450); RBC 4.73 m/uL (3.80-5.40); RDW 14.7 % (11.5-15.5); WBC 5.2 k/uL (3.8-10.6)
== END | disposition home or self-care (01) ==
LOC: LABPAT 12:21
PROVIDERS: ATTEND Anesthesiology
DX: Z01.812 Encounter for preprocedural laboratory examination (principal); K44.9 Diaphragmatic hernia without obstruction or gangrene
CPT/HCPCS: 36415; 85027

== ENCOUNTER 2019-05-19 06:28 | Inpatient (IN) | payer MEDICAID ==
[~2019-05-19 06:28] MED LIST changes: +HEPARIN SODIUM,PORCINE 5,000 UNIT/ML 1 ML VIAL SQ ONE; -LIDOCAINE 2% GEL 30 ML TUBE ENDOTRACHE ONE
[2019-05-19] MEDS ORDERED: CHLORHEXIDINE GLUCONATE 15 ML CUP MUCOUS MEM ONE (06:32)
[2019-05-19] MEDS ORDERED: PANTOPRAZOLE 40 MG/10 ML VIAL IV STA (06:32)
[2019-05-19] MEDS ORDERED: ACETAMINOPHEN IV (For NPO) 1,000 MG in EMPTY BAG 1 BAG IVPB ONE ×3 (06:32→13:00)
[2019-05-19] MEDS ORDERED: LACTATED RINGERS 1,000 ML IV ONE ×2 (06:55→09:47)
[2019-05-19] MEDS ORDERED: ONDANSETRON 4 MG/2 ML VIAL IVP ONE (06:58)
[2019-05-19] MEDS ORDERED: DEXAMETHASONE SOD PHOS (MDV) 100 MG/10 ML VIAL IVP ONE (06:59)
[2019-05-19] MEDS ORDERED: LIDOCAINE 1% 20 ML VIAL (10MG/ML) FOR IV START INTRADERMA ONE (07:11)
[2019-05-19 07:18] LABS: ALT 31 U/L (9-52); AST 28 U/L (14-36); African American GFR (CKD) >90 (>60 ml/min/1.73 sqM); Albumin 4.4 g/dL (3.5-5.0); Alkaline Phosphatase 92 U/L (38-126); Anion Gap 10 mmol/L; Blood Urea Nitrogen 22 mg/dL (7-17); Calcium 9.9 mg/dL (8.4-10.2); Carbon Dioxide 26 mmol/L (22-30); Chloride 106 mmol/L (98-107); Glucose 86 mg/dL (74-99); Non-African American GFR(CKD) >90 (>60 ml/min/1.73 sqM); Potassium 4.5 mmol/L (3.5-5.1); Sodium 142 mmol/L (137-145); Total Bilirubin 0.8 mg/dL (0.2-1.3); Total Protein 7.3 g/dL (6.3-8.2)
--- NOTE | 2019-05-19 07:32 | P.GSHP ---
History of Present Illness H&P Date: 05/19/19 CHIEF COMPLAINT: Paraesophageal hiatal hernia with gastroesophageal reflux disease. HISTORY OF PRESENT ILLNESS: The patient is a 58-year-old female who presents with paraesophageal hiatal hernia. She has completed an esophageal manometry including upper endoscopy workup. Now she presents for surgical intervention. PAST MEDICAL HISTORY: Please see list. PAST SURGICAL HISTORY: Please see list. MEDICATIONS: Please see list. ALLERGIES: Please see list. SOCIAL HISTORY: No illicit drug use FAMILY HISTORY: No reports of Crohn disease or ulcerative colitis. REVIEW OF ORGAN SYSTEMS: CONSTITUTIONAL: No reports of fevers or chills. GI: Denies any blood in stools or constipation. PHYSICAL EXAM: VITAL SIGNS: Stable GENERAL: Well-developed pleasant and in no acute distress. HEENT: No scleral icterus. Extraocular movements grossly intact. Moist buccal mucosa. NECK: Supple without lymphadenopathy. CHEST: Unlabored respirations. Equal bilateral excursions. CARDIOVASCULAR: Regular rate and rhythm. Distal 2+ pulses. ABDOMEN: Soft, nondistended. No peritoneal signs. MUSCULOSKELETAL: No clubbing, cyanosis, or edema. SKIN: Well-perfused. Good skin turgor. MANOMETRY: Shows no evidence of achalasia or scleroderma. ASSESSMENT: 1. Diaphragmatic paraesophageal hiatal hernia with severe gastroesophageal reflux disease. PLAN: 1. Recommend proceeding with a robotic paraesophageal hiatal hernia with possible mesh. 2. Benefits and risks of surgical intervention was discussed including possibility of open technique. 3. Inpatient hospitalization recommended of 2 nights 4. DVT prophylaxis. 5. Antibiotic prophylaxis. 6. She has also completed a very low caloric high-protein diet to address underlying hepatomegaly. Past Medical History Past Medical History: GERD/Reflux, Osteoarthritis (OA), Sleep Apnea/CPAP/BIPAP Additional Past Medical History / Comment(s): currently experiencing upset stoma ch/pain and freq diarrhea after eating.Hx NO CPAP, IRREGULAR HEART BEAT DURING , murmur during , HX OF JAUNDICE 1974- HOSPITALIZED 2 WEEKS, CURVATURE OF SPINE WITH BACK PAIN,RESTLESS LEG SYNDROME, arthritis R knee. History of Any Multi-Drug Resistant Organisms: None Reported Past Surgical History: Section, Cholecystectomy, Orthopedic Surgery, Uterine Ablation Additional Past Surgical History / Comment(s): RT KNEE ARTHROSCOPY, X2, right shoulder rotator cuff repair,, R foot spur removal, colonoscopy. Past Anesthesia/Blood Transfusion Reactions: Motion Sickness, Postoperative Nausea & Vomiting (PONV) Additional Past Anesthesia/Blood Transfusion Reaction / Comment(s): mother had no problems with prior blood transfusion,no hx blood transfusion Smoking Status: Never smoker - Past Family History Father Family Medical History: Musculoskeletal Disorder, Neurologic Disorder Additional Family Medical History / Comment(s): Father of Brenna Gherigs disease in his 60's Mother Family Medical History: Diabetes Mellitus, Hypertension Additional Family Medical History / Comment(s): Mother of Mylodysplasia at the age of 80 yrs. Medications and Allergies Home Medications Medication Instructions Recorded Confirmed Type Cilostazol [Pletal] 100 mg PO HS 03/16/14 05/13/19 History Multivitamins, Thera [Multivitamin 1 tab PO HS 03/16/14 05/13/19 History (formulary)] Zolpidem Tartrate [Zolpidem 12.5 mg PO HS 04/21/16 05/13/19 History Tartrate ER] Atorvastatin [Lipitor] 20 mg PO HS #30 tab 04/24/16 05/13/19 Rx Loratadine 10 mg PO HS 03/22/17 05/13/19 History Dextroamphetamine/Amphetamine 20 mg PO DAILY PRN 02/18/19 05/13/19 History [Adderall] Ranitidine HCl [Zantac] 150 mg PO BID 02/18/19 05/13/19 History Acetaminophen [Tylenol Arthritis] 650 mg PO Q8H PRN 05/13/19 05/13/19 History Allergies Allergy/AdvReac Type Severity Reaction Status Date / Time quinine Allergy Severe Rash/Hives/lupus Verified 05/13/19 09:54 like symptoms Surgical - Exam Vital Signs Temp Pulse Resp BP Pulse Ox 97.8 F 60 18 150/83 97 05/19/19 06:48 05/19/19 06:48 05/19/19 06:48 05/19/19 06:48 05/19/19 06:48 Results - Labs 05/19/19 06:56 Abnormal Lab Results - Last 24 Hours (Table) 05/19/19 Range/Units 06:56 BUN 22 H (7-17) mg/dL Diabetes panel 05/19/19 Range/Units 06:56 Sodium 142 (137-145) mmol/L Potassium 4.5 (3.5-5.1) mmol/L Chloride 106 (98-107) mmol/L Carbon Dioxide 26 (22-30) mmol/L BUN 22 H (7-17) mg/dL Creatinine 0.68 (0.52-1.04) mg/dL Glucose 86 (74-99) mg/dL Calcium 9.9 (8.4-10.2) mg/dL AST 28 (14-36) U/L ALT 31 (9-52) U/L Alkaline Phosphatase 92 (38-126) U/L Total Protein 7.3 (6.3-8.2) g/dL Albumin 4.4 (3.5-5.0) g/dL Calcium panel 05/19/19 Range/Units 06:56 Calcium 9.9 (8.4-10.2) mg/dL Albumin 4.4 (3.5-5.0) g/dL Pituitary panel 05/19/19 Range/Units 06:56 Sodium 142 (137-145) mmol/L Potassium 4.5 (3.5-5.1) mmol/L Chloride 106 (98-107) mmol/L Carbon Dioxide 26 (22-30) mmol/L BUN 22 H (7-17) mg/dL Creatinine 0.68 (0.52-1.04) mg/dL Glucose 86 (74-99) mg/dL Calcium 9.9 (8.4-10.2) mg/dL Adrenal panel 05/19/19 Range/Units 06:56 Sodium 142 (137-145) mmol/L Potassium 4.5 (3.5-5.1) mmol/L Chloride 106 (98-107) mmol/L Carbon Dioxide 26 (22-30) mmol/L BUN 22 H (7-17) mg/dL Creatinine 0.68 (0.52-1.04) mg/dL Glucose 86 (74-99) mg/dL Calcium 9.9 (8.4-10.2) mg/dL Total Bilirubin 0.8 (0.2-1.3) mg/dL AST 28 (14-36) U/L ALT 31 (9-52) U/L Alkaline Phosphatase 92 (38-126) U/L Total Protein 7.3 (6.3-8.2) g/dL Albumin 4.4 (3.5-5.0) g/dL
[2019-05-19] MEDS ORDERED: ROCURONIUM BROMIDE 10 MG/ML 10 ML VIAL IV ONE (07:53)
[2019-05-19] MEDS ORDERED: LIDOCAINE 1% INJ 10MG/ML (20 ML MDV) ONE (07:53)
[2019-05-19] MEDS ORDERED: MIDAZOLAM 2 MG/2 ML VIAL ONE (07:53)
[2019-05-19] MEDS ORDERED: NEOSTIGMINE 1 MG/ML 10 ML VIAL ONE (07:53)
[2019-05-19] MEDS ORDERED: GLYCOPYRROLATE 0.2 MG/ML 2 ML VIAL ONE (07:53)
[2019-05-19] MEDS ORDERED: HYDROmorphone (PF) 1 MG/ML ONE (07:53)
[2019-05-19] MEDS ORDERED: SUCCINYLCHOLINE CHLORIDE 100 MG/5 ML SYR IV ONE (07:53)
[2019-05-19] MEDS ORDERED: KETAMINE 10 MG/ML 20 ML VIAL ONE (07:53)
[2019-05-19] MEDS ORDERED: fentaNYL (PF) 50 MCG/ML 2 ML AMP ONE (07:53)
[2019-05-19] MEDS ORDERED: LIDOCAINE 1%-EPI 1:100,000 30 ML VIAL SQ ONE (08:35)
[2019-05-19] MEDS ORDERED: HYDROmorphone 1 MG/ML 1 ML SYRINGE IVP PRN (10:16)
[2019-05-19] MEDS ORDERED: ONDANSETRON 4 MG/2 ML VIAL IVP PRN (10:16)
[2019-05-19] MEDS ORDERED: NALOXONE 0.4 MG/ML 1 ML VIAL IV PRN (10:16)
--- NOTE | 2019-05-19 10:30 | P.OP ---
Date of Procedure: 05/19/19 Description of Procedure: SURGEON: SANDY MARIE MD PREOPERATIVE DIAGNOSES: 1. Symptomatic paraesophageal diaphragmatic hiatal hernia. 2. Gastroesophageal reflux disease. 3. Distal esophageal spasm 4. Epigastric abdominal pain 5. Hypertensive heart disease 6. ADHD/ADD 7. Seasonal ALLERGIES 8. Morbid obesity due to excess calories, BMI 37.3 9. Hyperlipidemia 10. Peripheral vascular occlusive disease POSTOPERATIVE DIAGNOSES: 1. Symptomatic paraesophageal diaphragmatic hiatal hernia, initial, incarcerated, 5 x 4 cm 2. Gastroesophageal reflux disease. 3. Distal esophageal spasm 4. Epigastric abdominal pain 5. Hypertensive heart disease 6. ADHD/ADD 7. Seasonal ALLERGIES 8. Morbid obesity due to excess calories, BMI 37.3 9. Hyperlipidemia 10. Peripheral vascular occlusive disease 10. Distal esophageal extra mucosal lipoma, 3 cm OPERATION: 1. Robotic-assisted da Julissa Xi laparoscopic repair of incarcerated paraesophageal hiatal hernia, 5 x 4 cm, with Fleischmanns Biopatch A 8 x 8 cm. 2. Robotic-assisted da Julissa Xi laparoscopic resection of benign mediastinal tumor, 3 cm 3. Intraoperative esophagogastroduodenoscopy 4. Distal esophageal dilation with 56-Kyrgyz bougie for distal esophageal spasm ANESTHESIA: General with local anesthetic. ESTIMATED BLOOD LOSS: 5 mL SPECIMENS REMOVED: 1. Mediastinal mass 3 cm COMPLICATIONS: None. Condition: stable Disposition: floor FINDINGS: 1. Midline incarcerated paraesophageal hiatal hernia 5 x 4 cm 2. Intraoperative upper endoscopy confirms complete closure of hiatal hernia from Hill grade 4 to Hill grade 1 3. Dilation of distal esophagus for distal esophageal spasm INDICATIONS: The patient is a 58-year-old female who presents with esophageal spasms, gastroesophageal reflux disease poorly controlled despite medications, and a symptomatic diaphragmatic hiatal hernia. Preoperative workup including upper endoscopy demonstrated a Hill grade 4 lower esophageal valve. She completed an esophageal manometry. Given the severity of symptoms, she had elected for surgical intervention. Benefits and risks including bleeding, infection, recurrence, dysphagia, injury to the lung, need for further surgery was described at length. Informed consent was obtained. DESCRIPTION: The patient was brought into the operating room and placed in supine position. Preoperatively she had received heparin subcutaneously for DVT prophylaxis. After general induction, the abdomen was prepped and draped in standard sterile fashion. The patient had previously voided prior to coming to the operating room. Ioban draping was placed along the abdomen. A timeout protocol was confirmed with the surgical team, for which the patient's name, procedure to be performed including DVT prophylaxis with bilateral SCDs, and preoperative antibiotics were also confirmed. A robotic da Julissa Xi system was prepped and primed. At 12 cm from the xiphoid to just below the umbilicus, proposed port sites were marked with indelible marker along the left axillary line, left mid-clavicular line with each ports were marked 10 cm from each other. A 5 mm 0 degrees laparoscopic trocar entry was performed along the left upper quadrant. The abdomen was insufflated to 15 mmHg pressure was tolerated well. Diagnostic laparoscopy demonstrated no injury to bowel, viscera, or mesentery. No injury had occurred to the small bowel or viscera. The liver was pristine with sharp edge consistent with two-week low carb high-protein diet. Next, one 8 mm robotic port was placed along the right upper abdomen. An 8-mm port was were placed along the left lateral abdominal wall. The camera 8-mm port was maintained along the epigastrium via the hernia defect. Another 12 mm port was placed along the left upper abdominal wall after exchanging the 5 mm port. Please note that the ports were placed at least 20 cm away from the target anatomy. Care was taken to check that each robotic arm were safely away from collision with the bed or the patient. At the epigastrium, a medium sized Micha liver retractor was placed under d irect visualization with the [employer] Curator placed under the right shoulder of the patient. All robotic arms were used. The patient was repositioned in reverse Trendelenburg position at 16-degrees after lowering the bed. The robot was docked above the right side of the patient. Using a grasper for arm 3, a grasper for arm 1, including vessel sealer for arm 2, the robotic system was docked and primed as described. Instruments were interchanged by the laundry assistant. I had sat at the console. The gastrohepatic ligament was cleaved using a vessel sealer. Next, the phrenoesophageal ligament was mobilized and the distal esophagus was mobilized circumferentially. The left and right crura was identified. Circumferentially, the hernia sac was excised and brought into the peritoneal cavity. Moderate dissection into the mediastinum was performed to release the esophagus into the abdominal cavity. The paraesophageal hiatal hernia sac was also incised and divided from the esophagus. A distal esophageal extramucosal/mediastinal lipoma was also identified and resected of 3 cm using a vessel sealer. Care was taken to avoid any gastrotomy. The measured defect was consistent with 5 cm axial length and 4 cm in width. After dissection, the distal esophagus of 3 cm was brought into the abdominal cavity. Once the hiatus and crura was dissected, 2-0 VLOC suture was placed to reapproximate the diaphragmatic hiatus posteriorly. To buttress the repair, a Fleischmanns Biopatch A was prepared along the back table and cut in half of a oneil-hole fashion as to reinforce the repair as an underlay. The mesh was placed along the crural repair and tagged using horizontal mattress sutures using 2-0 VLOC. I went to the head of the bed to perform intraoperative esophagogastroduodenoscopy and placement of a 56Fr bougie. The bougie was left in place for over a minute to address distal esophageal spasms and removed. An Olympus gastroscope was passed through posterior oropharynx to the duodenum were no evidence of duodenitis or duodenal ulcers were identified. Retroflexion of the scope confirmed a Hill grade 1 lower esophageal valve. The stomach had been desufflated. No evidence of leaks were found of the esophagus or stomach. The squamocolumnar junction and hiatus was placed at 36 cm from the incisors. The GI tract with desufflated This concluded the endoscopic portion of the case. The robot was undocked from the patient. I re-scrubbed into the case. All instruments and pneumoperitoneum and specimens were evacuated from the abdominal cavity. Incisions were reapproximated using 4-0 Monocryl in an interrupted subcuticular fashion. Liquid glue was applied to the skin. Local anesthetic was infiltrated in all wounds for postop analgesia. Multiple intra-abdominal films were obtained. At the end of the procedure, needle, sponge, and instrument count was verified correct by the surgical specialist. The patient had tolerated the procedure well and was taken to the postanesthesia unit in stable condition. Intraoperative films were reviewed with the patient's family who was pleased with the level of care. Console time 51 minutes.
[2019-05-19 10:36] VITALS: RESP 16
[2019-05-19 11:53] VITALS: BMI 37.3
[2019-05-19] MEDS: ALBUTEROL NEBULIZED 2.5 MG/3 ML INHALATION SCH ×3 (12:26→19:53)
[2019-05-19] MEDS: KETOROLAC 30 MG/ML 1 ML VIAL IVP SCH ×2 (13:06→18:59)
[2019-05-19] MEDS: DEXAMETHASONE SOD PHOSPHATE 4 MG/ML 1 ML VIAL IV SCH ×2 (13:10→18:59)
[2019-05-19] MEDS: HYOSCYAMINE ORAL DROPS 1.875 MG/15 ML BOTTLE PO SCH ×2 (13:54→19:01)
[2019-05-19] MEDS: SIMETHICONE 40 MG/0.6 ML DROPS 2,000 MG/30 ML BOTTLE PO SCH ×2 (13:56→19:00)
--- NOTE | 2019-05-19 14:49 | FL ---
EXAMINATION TYPE: FL UGI w esophagus DATE OF EXAM: 05/19/2019 LIMITED UGI-ESOPHAGRAM: CLINICAL HISTORY: History of reflux and hiatal hernia status post Smith fundoplication surgery jacki ier today TECHNIQUE: Limited esophagram is performed utilizing 20 oz of Isovue. A total of 39 seconds of fluor oscopic time was utilized during procedure. 19 spot images are saved to PACS. FINDINGS: The patient swallowed contrast without difficulty or delay. Esophageal peristalsis and mo tility are within normal limits. There is satisfactory flow of contrast along the diaphragmatic hiatu s into the stomach, there is no evidence of contrast extravasation to suggest leak. No persistent fix ed hiatal hernia is seen. Patient remains asymptomatic. IMPRESSION: No evidence of leak or significant obstruction status post Smith fundoplication surgery earlier today.
[2019-05-19] MEDS: 0.9% NACL WITH KCL 20 MEQ/L 1,000 ML IV SCH ×2 (15:56→18:17)
[2019-05-19] MEDS ORDERED: CILOSTAZOL 100 MG TAB PO SCH (23:45)
[2019-05-19] MEDS ORDERED: FAMOTIDINE 20 MG TAB PO SCH (23:45)
[2019-05-19] MEDS ORDERED: LORATADINE 10 MG TAB PO SCH (23:45)
[2019-05-19] MEDS ORDERED: ATORVASTATIN 20 MG TAB PO SCH (23:45)
[2019-05-19] MEDS ORDERED: ZOLPIDEM 5 MG TAB PO SCH (23:45)
--- NOTE | 2019-05-19 23:51 | P.CONS ---
History of Present Illness - Reason for Consult Consult date: 05/19/19 postoperative medical management Requesting physician: Jojo Mclaughlin - Chief Complaint hiatal hernia - History of Present Illness 58-year-old female with history of hiatal hernia, GERD, hyperlipidemia Patient presented for scheduled robotic-assisted hernia repair. Patient had her surgery done today tolerated procedure. Well no observed immediate postoperative consultations tolerating by mouth intake patient is passing urine. Denies any fevers chills chest pain or trouble breathing. Medicine was consulted to assist in management medically in the postoperative period. Patient is doing well patient requesting home medications which was verified with her. Currently denies any complaints except for concerns regarding sleeping as she has insomnia and takes Ambien at home. Review of Systems Pertinent positives as noted in HPI. All other systems were reviewed and are negative Past Medical History Past Medical History: GERD/Reflux, Osteoarthritis (OA), Sleep Apnea/CPAP/BIPAP Additional Past Medical History / Comment(s): .Hx NO CPAP, IRREGULAR HEART BEAT DURING , murmur during , HX OF JAUNDICE 1973- HOSPITALIZED 2 WEEKS, CURVATURE OF SPINE WITH BACK PAIN,RESTLESS LEG SYNDROME, arthritis R knee. History of Any Multi-Drug Resistant Organisms: None Reported Past Surgical History: Section, Cholecystectomy, Orthopedic Surgery, Uterine Ablation Additional Past Surgical History / Comment(s): RT KNEE ARTHROSCOPY, X2, right shoulder rotator cuff repair,, R foot spur removal, colonoscopy. Past Anesthesia/Blood Transfusion Reactions: Motion Sickness, Postoperative Nausea & Vomiting (PONV) Additional Past Anesthesia/Blood Transfusion Reaction / Comm: mother had no problems with prior blood transfusion,no hx blood transfusion Past Psychological History: ADD/ADHD Additional Psychological History / Comment(s): Pt resides with her spouse. She is independent. Smoking Status: Never smoker Past Alcohol Use History: None Reported Past Drug Use History: None Reported - Past Family History Father Family Medical History: Musculoskeletal Disorder, Neurologic Disorder Additional Family Medical History / Comment(s): Father of Brenna Gherigs disease in his 60's Mother Family Medical History: Diabetes Mellitus, Hypertension Additional Family Medical History / Comment(s): Mother of Mylodysplasia at the age of 80 yrs. Medications and Allergies Home Medications Medication Instructions Recorded Confirmed Type Cilostazol [Pletal] 100 mg PO HS 03/16/14 05/19/19 History Multivitamins, Thera [Multivitamin 1 tab PO HS 03/16/14 05/19/19 History (formulary)] Zolpidem Tartrate [Zolpidem 12.5 mg PO HS 04/21/16 05/19/19 History Tartrate ER] Atorvastatin [Lipitor] 20 mg PO HS #30 tab 04/24/16 05/19/19 Rx Loratadine 10 mg PO HS 03/22/17 05/19/19 History Dextroamphetamine/Amphetamine 20 mg PO DAILY PRN 02/18/19 05/19/19 History [Adderall] Ranitidine HCl [Zantac] 150 mg PO BID 02/18/19 05/19/19 History Acetaminophen [Tylenol Arthritis] 650 mg PO Q8H PRN 05/13/19 05/19/19 History Allergies Allergy/AdvReac Type Severity Reaction Status Date / Time quinine Allergy Severe Rash/Hives/lupus Verified 05/19/19 10:46 like symptoms Physical Exam Vitals: Vital Signs Temp Pulse Pulse Pulse Pulse Pulse Resp 05/19/19 20:04 70 05/19/19 19:54 68 05/19/19 19:02 98.1 F 96 16 05/19/19 18:25 98.5 F 05/19/19 16:35 67 05/19/19 16:23 65 05/19/19 16:00 76 16 05/19/19 14:27 97.8 F 77 16 05/19/19 13:30 61 05/19/19 13:15 62 05/19/19 13:00 61 05/19/19 12:45 60 05/19/19 12:42 68 05/19/19 12:30 53 L 05/19/19 12:26 56 L 05/19/19 12:15 54 L 05/19/19 12:00 55 L 16 05/19/19 11:45 55 L 05/19/19 11:30 98.2 F 62 16 05/19/19 11:05 65 16 05/19/19 10:49 60 16 05/19/19 10:34 65 16 05/19/19 10:19 99.1 F 85 13 05/19/19 06:48 97.8 F 60 18 BP BP Pulse Ox 05/19/19 20:04 05/19/19 19:54 05/19/19 19:02 139/79 93 L 05/19/19 18:25 99 05/19/19 16:35 05/19/19 16:23 05/19/19 16:00 05/19/19 14:27 146/75 96 05/19/19 13:30 155/76 05/19/19 13:15 145/102 05/19/19 13:00 144/81 05/19/19 12:45 151/80 05/19/19 12:42 05/19/19 12:30 138/81 05/19/19 12:26 05/19/19 12:15 133/78 05/19/19 12:00 125/76 05/19/19 11:45 128/76 05/19/19 11:30 122/73 93 L 05/19/19 11:05 121/60 92 L 05/19/19 10:49 137/61 96 05/19/19 10:34 139/59 95 05/19/19 10:19 155/71 96 05/19/19 06:48 150/83 97 Intake and Output 05/19/19 05/19/19 05/20/19 14:59 22:59 06:59 Intake Total 1550 Output Total 165 825 Balance 1385 -825 Intake: IV 1550 Output: Urine 160 825 Estimated Blood Loss 5 Other: Voiding Method Toilet # Voids 0 1 Weight 104.78 kg Constitutional: No acute distress, conversant, pleasant Eyes: Anicteric sclerae, moist conjunctiva, no lid-lag Pupils equal round reactive to light ENMT: NC/AT Oropharynx clear, no erythema, or exudates Neck: Supple, FROM, no masses, or JVD No carotid bruits No thyromegaly Lungs: Clear to auscultation Clear to percussion Normal respiratory effort, no accessory muscle use Cardiovascular: Heart regular in rate and rhythm, systolic murmur, no gallops, or rubs No peripheral edema Abdominal: Soft,surgical dressing looks dry clean and intact surgical wounds looks healthy and clean and dry no drainage bleeding or discharge Nontender, no guarding, rebound or rigidity Abdomen moving with respiration Normoactive bowel sounds No hepatomegaly, No splenomegaly No palpable mass No abdominal wall hernia noted Skin: Normal temperature, tone, texture, turgor No induration No subcutaneous nodules No rash, lesions No ulcers Extremities: No digital cyanosis No clubbing Pedal pulses intact and symmetrical Radial pulses intact and symmetrical No calf tenderness Psychiatric: Alert and oriented to person, place and time Appropriate affect fair judgment Neuro Muscles Strength 5/5 in all 4 extremities Sensation to light touch grossly present throughout Cranial nerves II-XII grossly intact No focal sensory deficits Lymphatics: no palpable cervical or supraclavicular , or inguinal lymph nodes Results CBC & Chem 7: 05/19/19 06:56 Labs: Abnormal Lab Results - Last 24 Hours (Table) 05/19/19 Range/Units 06:56 BUN 22 H (7-17) mg/dL Assessment and Plan Assessment: 58-year-old female with history of hyperlipidemia hiatal hernia, admitted under surgery service for scheduled robotic-assisted hiatal hernia repair. Patient tolerated procedure well medicine consulted for postoperative medical management. Medications were reviewed with the patient and reconciled Patient doing well with no observed immediate postoperative,complications Plan: hiatal hernia status post surgical repair postoperative day 0 Management per general surgery service Hyperlipidemia resume home meds History of insomnia resume Ambien Follow-up CBC and basic metabolic panel in the morning history of GERD resume PPI Thank you for allowing us to participate in the care of this patient. Do not hesitate to contact us with questions. Someone can be reached from the [facility] hospitalist group at all hours of the day at [phone].
[2019-05-20] MEDS: HEPARIN SODIUM,PORCINE 5,000 UNIT/ML 1 ML VIAL SQ SCH ×2 (00:05→08:07)
[2019-05-20] MEDS: DEXAMETHASONE SOD PHOSPHATE 4 MG/ML 1 ML VIAL IV SCH ×3 (00:05→12:34)
[2019-05-20] MEDS: KETOROLAC 30 MG/ML 1 ML VIAL IVP SCH ×3 (00:05→12:31)
[2019-05-20] MEDS: SIMETHICONE 40 MG/0.6 ML DROPS 2,000 MG/30 ML BOTTLE PO SCH ×3 (00:06→12:34)
[2019-05-20] MEDS: HYOSCYAMINE ORAL DROPS 1.875 MG/15 ML BOTTLE PO SCH ×3 (00:06→12:34)
[2019-05-20] MEDS: 0.9% NACL WITH KCL 20 MEQ/L 1,000 ML IV SCH ×2 (00:13→08:05)
[2019-05-20 07:39] VITALS: BP 112/68; TEMP 97.7
[2019-05-20] MEDS ORDERED: 0.9% NACL WITH KCL 20 MEQ/L 1,000 ML IV SCH (08:00)
[2019-05-20 08:14] LABS: Basophils % (A) 0 %; Eosinophils % (A) 0 %; HCT 38.2 % (34.0-46.0); HGB 13.2 gm/dL (11.4-16.0); Lymphocytes # (A) 0.6 k/uL (1.0-4.8); Lymphocytes % (A) 6 %; MCH 30.1 pg (25.0-35.0); MCHC 34.5 g/dL (31.0-37.0); MCV 87.2 fL (80.0-100.0); Mean Platelet Volume 6.8; Monocytes # (A) 0.3 k/uL (0-1.0); Monocytes % (A) 3 %; Neutrophils # (A) 10.4 k/uL (1.3-7.7); Neutrophils % (A) 91 %; Platelet Count 312 k/uL (150-450); RBC 4.39 m/uL (3.80-5.40); RDW 13.9 % (11.5-15.5); WBC 11.4 k/uL (3.8-10.6)
[2019-05-20] MEDS: ALBUTEROL NEBULIZED 2.5 MG/3 ML INHALATION SCH ×2 (08:15→11:40)
[2019-05-20 08:35] LABS: African American GFR (CKD) >90 (>60 ml/min/1.73 sqM); Anion Gap 8 mmol/L; Blood Urea Nitrogen 12 mg/dL (7-17); Carbon Dioxide 24 mmol/L (22-30); Chloride 107 mmol/L (98-107); Non-African American GFR(CKD) >90 (>60 ml/min/1.73 sqM); Phosphorus 3.6 mg/dL (2.5-4.5); Potassium 5.1 mmol/L (3.5-5.1); Sodium 139 mmol/L (137-145)
[2019-05-20] MEDS ORDERED: PANTOPRAZOLE 40 MG/10 ML VIAL IV SCH (09:00)
--- NOTE | 2019-05-20 11:20 | P.PN ---
<DuqueAmbreen Beena - Last Filed: 05/20/19 11:15> Subjective Progress Note Date: 05/20/19 CHIEF COMPLAINT: Hiatal hernia HISTORY OF PRESENT ILLNESS: 58-year-old female who is status post robotic- assisted laparoscopic repair of incarcerated paraesophageal hiatal hernia and resection of benign mediastinal tumor. Postop day #1. Esophagram completed postoperatively negative for leak or obstruction. Patient is tolerating clear liquid diet. Denies nausea. Patient reports minimal abdominal pain this morning. She has been up ambulating. Vital signs stable. Afebrile. PHYSICAL EXAM: VITAL SIGNS: Reviewed GENERAL: Well-developed in no acute distress. HEENT: No sclera icterus. Extraocular movements grossly intact. Moist buccal mucosa. Head is atraumatic, normocephalic. Hears conversational speech. No nasal drainage. NECK: Supple without lymphadenopathy. CHEST: Non-labored respirations and equal bilateral excursions. CARDIOVASCULAR: Regular rate with regular rhythm. Palpable 2+ radial pulses. ABDOMEN: Soft. Nondistended. Appropriate surgical tenderness. Surgical incision sites clean dry and intact without drainage. MUSCULOSKELETAL: No clubbing, cyanosis or edema. NEUROLOGIC: No focal or lateralizing signs. Cranial nerves II through XII grossly intact. PSYCH: Appropriate affect. Alert and oriented to person, place and time. SKIN: Well perfused. Good skin turgor. ASSESSMENT: 1. Symptomatic paraesophageal diaphragmatic hiatal hernia, initial, incarcerated, 5 x 4 cm 2. Gastroesophageal reflux disease. 3. Distal esophageal spasm 4. Epigastric abdominal pain 5. Hypertensive heart disease 6. ADHD/ADD 7. Seasonal allergies 8. Morbid obesity due to excess calories, BMI 37.3 9. Hyperlipidemia 10. Peripheral vascular occlusive disease 10. Distal esophageal extra mucosal lipoma, 3 cm PLAN: 1. Continue clear liquid diet. No straws or carbonated beverages. 2. Pain control 3. Activity as tolerated. Patient encouraged to ambulate in the hallways today 4. Incentive spirometry 5. Anticipate discharge home this afternoon after re-evaluation by Dr. Mclaughlin Nurse practitioner note has been reviewed by physician. Signing provider agrees with the documented findings, assessment, and plan of care. Objective - Vital Signs Vital signs: Vital Signs Temp 97.7 F 05/20/19 07:00 Pulse 74 05/20/19 08:27 Resp 16 05/20/19 07:00 BP 112/68 05/20/19 07:00 Pulse Ox 94 L 05/20/19 08:18 Intake & Output 05/19/19 05/20/19 05/20/19 18:59 06:59 18:59 Intake Total 1550 Output Total 665 325 Balance 885 -325 Weight 104.78 kg Intake: IV 1550 Output: Urine 660 325 Estimated Blood Loss 5 Other: Voiding Method Toilet # Voids 1 - Labs CBC & Chem 7: 05/20/19 06:39 05/20/19 06:39 Labs: Abnormal Lab Results - Last 24 Hours (Table) 05/20/19 Range/Units 06:39 WBC 11.4 H (3.8-10.6) k/uL Neutrophils # 10.4 H (1.3-7.7) k/uL Lymphocytes # 0.6 L (1.0-4.8) k/uL Assessment and Plan (1) Hiatal hernia Status: Acute Code(s): K44.9 - DIAPHRAGMATIC HERNIA WITHOUT OBSTRUCTION OR GANGRENE SNOMED Code(s): 92804988 <Jojo Mclaughlin N - Last Filed: 05/20/19 17:17> Subjective X-rays reviewed demonstrating no obstruction or free air. Patient was to lerating liquids. Prior to discharge, post-Pia diet was reviewed in detail. She'll follow-up in the office within 5 days. All questions were answered. Objective - Vital Signs Vital signs: Vital Signs Temp 97.7 F 05/20/19 07:00 Pulse 72 05/20/19 11:54 Resp 16 05/20/19 07:00 BP 112/68 05/20/19 07:00 Pulse Ox 94 L 05/20/19 08:18 Intake & Output 05/19/19 05/20/19 05/20/19 18:59 06:59 18:59 Intake Total 1550 Output Total 665 325 Balance 885 -325 Weight 104.78 kg Intake: IV 1550 Output: Urine 660 325 Estimated Blood Loss 5 Other: Voiding Method Toilet # Voids 1 - Labs CBC & Chem 7: 05/20/19 06:39 05/20/19 06:39 Labs: Abnormal Lab Results - Last 24 Hours (Table) 05/20/19 Range/Units 06:39 WBC 11.4 H (3.8-10.6) k/uL Neutrophils # 10.4 H (1.3-7.7) k/uL Lymphocytes # 0.6 L (1.0-4.8) k/uL
[2019-05-20 11:55] VITALS: PULSE 72
--- NOTE | 2019-05-20 16:01 | P.DS ---
Providers Date of admission: 05/19/19 06:28 Expected date of discharge: 05/20/19 Attending physician: Jojo Mclaughlin Consults: 05/19/19 20:39 Consult Physician Routine Consulting Provider: Debora Fontenot Consult Reason/Comments: Medical Management Do you want consulting provider notified?: Yes Primary care physician: Chuck Bradford - Discharge Diagnosis(es) (1) Paraesophageal hernia with obstruction but no gangrene Status: Acute (2) Mass of mediastinum Status: Acute (3) Morbid obesity due to excess calories Status: Acute (4) BMI 37.0-37.9, adult Status: Acute (5) Hypertensive heart disease Status: Acute (6) Peripheral vascular occlusive disease Status: Acute Hospital Course: POSTOPERATIVE DIAGNOSES: 1. Symptomatic paraesophageal diaphragmatic hiatal hernia, initial, incarcerated, 5 x 4 cm 2. Gastroesophageal reflux disease. 3. Distal esophageal spasm 4. Epigastric abdominal pain 5. Hypertensive heart disease 6. ADHD/ADD 7. Seasonal ALLERGIES 8. Morbid obesity due to excess calories, BMI 37.3 9. Hyperlipidemia 10. Peripheral vascular occlusive disease 10. Distal esophageal extra mucosal lipoma, 3 cm COURSE: The patient is a 58-year-old female who presented with esophageal spasms, gastroesophageal reflux disease poorly controlled despite medications, and a symptomatic diaphragmatic hiatal hernia. Preoperative workup including upper endoscopy demonstrated a Hill grade 4 lower esophageal valve. She had a robotic hiatal hernia repair including dilation of distal esophagus. Postoperatively, she was doing well. Her distal esophageal spasms have resolved. Gastroesophageal reflux disease also resolved. Prior to discharge, hiatal hernia and post Pia diet was reviewed in detail with handout given. She demonstrated understanding and verbalized discharge instructions. She'll follow-up in the office within 5 days. Procedures: OPERATION: 1. Robotic-assisted da Julissa Xi laparoscopic repair of incarcerated paraesophageal hiatal hernia, 5 x 4 cm, with Villanueva Biopatch A 8 x 8 cm. 2. Robotic-assisted da Julissa Xi laparoscopic resection of benign mediastinal tumor, 3 cm 3. Intraoperative esophagogastroduodenoscopy 4. Distal esophageal dilation with 56-Lithuanian bougie for distal esophageal spasm Patient Condition at Discharge: Good Plan - Discharge Summary Discharge Rx Participant: Yes New Discharge Prescriptions: New Acetaminophen Oral Susp [Tylenol Oral Susp] 650 mg PO Q4H PRN #250 ml PRN Reason: Pain Continue Cilostazol [Pletal] 100 mg PO HS Multivitamins, Thera [Multivitamin (formulary)] 1 tab PO HS Zolpidem Tartrate [Zolpidem Tartrate ER] 12.5 mg PO HS Atorvastatin [Lipitor] 20 mg PO HS #30 tab Loratadine 10 mg PO HS Ranitidine HCl [Zantac] 150 mg PO BID Dextroamphetamine/Amphetamine [Adderall] 20 mg PO DAILY PRN PRN Reason: ADD Acetaminophen [Tylenol Arthritis] 650 mg PO Q8H PRN PRN Reason: Pain Discharge Medication List Cilostazol [Pletal] 100 mg PO HS 03/16/14 [History] Multivitamins, Thera [Multivitamin (formulary)] 1 tab PO HS 03/16/14 [History] Zolpidem Tartrate [Zolpidem Tartrate ER] 12.5 mg PO HS 04/21/16 [History] Atorvastatin [Lipitor] 20 mg PO HS #30 tab 04/24/16 [Rx] Loratadine 10 mg PO HS 03/22/17 [History] Dextroamphetamine/Amphetamine [Adderall] 20 mg PO DAILY PRN 02/18/19 [History] Ranitidine HCl [Zantac] 150 mg PO BID 02/18/19 [History] Acetaminophen [Tylenol Arthritis] 650 mg PO Q8H PRN 05/13/19 [History] Acetaminophen Oral Susp [Tylenol Oral Susp] 650 mg PO Q4H PRN #250 ml 05/20/19 [Rx] Follow up Appointment(s)/Referral(s): Chuck Bradford DO [Primary Care Provider] - 05/27/19 1:20 pm Jojo Mclaughlin MD [STAFF PHYSICIAN] - 05/24/19 10:00 am Patient Instructions/Handouts: Hiatal Hernia (DC) Activity/Diet/Wound Care/Special Instructions: No lifting over 4 pounds You may shower. No soaking or tub baths Very light activity until you are reevaluated at your follow up appointment with your surgeon Full liquid diet for two weeks. No straws or carbonated beverages Crush, cut, or break any medications that are larger than the size of tic tac Discharge Disposition: HOME SELF-CARE
== END 2019-05-20 14:55 | disposition home or self-care (01) | DRG 328 ==
LOC: 2ORMAIN 06:28 → 4SSUR 11:00
PROVIDERS: ADMIT Surgery Plastic and Reconstructive Surgery; ATTEND Surgery Plastic and Reconstructive Surgery
PROC: 0D758ZZ Dilation of Esophagus, Via Natural or Artificial Opening Endoscopic (ICD-10-PCS; principal; 2019-05-19 08:00)
PROC: 0BUT4JZ Supplement Diaphragm with Synthetic Substitute, Percutaneous Endoscopic Approach (ICD-10-PCS; principal; 2019-05-19 08:00)
PROC: 0DB54ZZ Excision of Esophagus, Percutaneous Endoscopic Approach (ICD-10-PCS; principal; 2019-05-19 08:00)
PROC: 8E0W4CZ Robotic Assisted Procedure of Trunk Region, Percutaneous Endoscopic Approach (ICD-10-PCS; principal; 2019-05-19 08:00)
DX: K44.0 Diaphragmatic hernia with obstruction, without gangrene (principal); D17.9 Benign lipomatous neoplasm, unspecified; E66.01 Morbid (severe) obesity due to excess calories; E78.5 Hyperlipidemia, unspecified; F90.9 Attention-deficit hyperactivity disorder, unspecified type; G25.81 Restless legs syndrome; G47.30 Sleep apnea, unspecified; I11.9 Hypertensive heart disease without heart failure; J30.2 Other seasonal allergic rhinitis; K21.9 Gastro-esophageal reflux disease without esophagitis; K22.4 Dyskinesia of esophagus; M17.11 Unilateral primary osteoarthritis, right knee; Z68.37 Body mass index [BMI] 37.0-37.9, adult; Z79.899 Other long term (current) drug therapy; Z82.49 Family history of ischemic heart disease and other diseases of the circulatory system; Z83.3 Family history of diabetes mellitus; Z90.49 Acquired absence of other specified parts of digestive tract; Z88.3 Allergy status to other anti-infective agents; I73.9 Peripheral vascular disease, unspecified
CPT/HCPCS: 74240; 80051; 80053; 82565; 83735; 84100; 84520; 85025; 88304; 94640; 94760

== ENCOUNTER 2019-05-25 10:57 | Day surgery (SDC) | payer MEDICAID ==
[2019-05-24 14:07] VITALS: BMI 37.1
--- NOTE | 2019-05-25 08:41 | P.GSHP ---
History of Present Illness H&P Date: 05/25/19 CHIEF COMPLAINT: GERD HISTORY OF PRESENT ILLNESS: The patient is a 58-year-old female who presents reports gastroesophageal reflux disease. Upper endoscopy was offered for further evaluation and management. PAST MEDICAL HISTORY: Please see list. PAST SURGICAL HISTORY: Please see list. MEDICATIONS: Please see list. ALLERGIES: Please see list. SOCIAL HISTORY: No illicit drug use FAMILY HISTORY: No reports of Crohn disease or ulcerative colitis. REVIEW OF ORGAN SYSTEMS: CONSTITUTIONAL: No reports of fevers or chills. GI: Denies any blood in stools or constipation. PHYSICAL EXAM: VITAL SIGNS: Stable GENERAL: Well-developed and pleasant in no acute distress. HEENT: No scleral icterus. Extraocular movements grossly intact. Moist buccal mucosa. NECK: Supple without lymphadenopathy. CHEST: Unlabored respirations. Equal bilateral excursions. CARDIOVASCULAR: Regular rate and rhythm. Distal 2+ pulses. ABDOMEN: Soft, nondistended. MUSCULOSKELETAL: No clubbing, cyanosis, or edema. ASSESSMENT: 1. Gastroesophageal reflux disease PLAN: 1. Recommend proceeding with an upper endoscopy Past Medical History Past Medical History: GERD/Reflux, Osteoarthritis (OA), Sleep Apnea/CPAP/BIPAP Additional Past Medical History / Comment(s): NO CPAP, IRREGULAR HEART BEAT DURING , HX OF JAUNDICE 1973- HOSPITALIZED 2 WEEKS, CURVATURE OF SPINE WITH BACK PAIN,RESTLESS LEG SYNDROME, arthritis R knee, just d/c after having surgery, ate some scrambled eggs last night & feels like something stuck when swallows, is able to tolerate fluids History of Any Multi-Drug Resistant Organisms: None Reported Past Surgical History: Section, Cholecystectomy, Orthopedic Surgery, Uterine Ablation Additional Past Surgical History / Comment(s): RT KNEE ARTHROSCOPY, X2, right shoulder rotator cuff repair,, R foot spur removal, colonoscopy, robotic repair incarcerated paraesophageal hiatal hernia 05-19-19 Past Anesthesia/Blood Transfusion Reactions: Motion Sickness, Postoperative Nausea & Vomiting (PONV) Additional Past Anesthesia/Blood Transfusion Reaction / Comment(s): mother had no problems with prior blood transfusion,no hx blood transfusion Smoking Status: Never smoker - Past Family History Father Family Medical History: Musculoskeletal Disorder, Neurologic Disorder Additional Family Medical History / Comment(s): Father of Brenna Gherigs disease in his 60's Mother Family Medical History: Diabetes Mellitus, Hypertension Additional Family Medical History / Comment(s): Mother of Mylodysplasia at the age of 80 yrs. Medications and Allergies Home Medications Medication Instructions Recorded Confirmed Type Cilostazol [Pletal] 100 mg PO HS 03/16/14 05/24/19 History Zolpidem Tartrate [Zolpidem 12.5 mg PO HS 04/21/16 05/24/19 History Tartrate ER] Atorvastatin [Lipitor] 20 mg PO HS #30 tab 04/24/16 05/24/19 Rx Loratadine 10 mg PO HS 03/22/17 05/24/19 History Dextroamphetamine/Amphetamine 20 mg PO DAILY PRN 02/18/19 05/24/19 History [Adderall] Acetaminophen [Tylenol Arthritis] 650 mg PO Q8H PRN 05/13/19 05/24/19 History Acetaminophen Oral Susp [Tylenol 650 mg PO Q4H PRN #250 ml 05/20/19 05/24/19 Rx Oral Susp] Allergies Allergy/AdvReac Type Severity Reaction Status Date / Time quinine Allergy Severe Rash/Hives/lupus Verified 05/24/19 12:03 like symptoms
[~2019-05-25 10:57] MED LIST changes: -HEPARIN SODIUM,PORCINE 5,000 UNIT/ML 1 ML VIAL SQ ONE; +LACTATED RINGERS 1,000 ML IV SCH
[2019-05-25 11:21] VITALS: TEMP 98.4
[2019-05-25] MEDS ORDERED: LIDOCAINE 1% 20 ML VIAL (10MG/ML) FOR IV START INTRADERMA ONE (11:22)
[2019-05-25] MEDS ORDERED: PROPOFOL 10 MG/ML 20 ML VIAL IV ONE (11:56)
[2019-05-25] MEDS ORDERED: fentaNYL (PF) 50 MCG/ML 2 ML AMP ONE (11:56)
[2019-05-25] MEDS ORDERED: MIDAZOLAM 2 MG/2 ML VIAL ONE (11:56)
[2019-05-25] MEDS ORDERED: LIDOCAINE 1% INJ 10MG/ML (20 ML MDV) ONE (11:56)
--- NOTE | 2019-05-25 12:13 | P.PCN ---
Date of Procedure: 05/25/19 Description of Procedure: PREOPERATIVE DIAGNOSIS: Dysphagia Gastroesophageal reflux disease. POSTOPERATIVE DIAGNOSIS: Dysphagia Gastroesophageal reflux disease. OPERATION: Esophagogastroduodenoscopy SURGEON: Jojo Mclaughlin MD ANESTHESIA: MAC. INDICATIONS: The patient is a 58-year-old female who presents with a history of reflux disease. She had recent repair and prematurely had solid food during her perioperative period. Upper endoscopy is performed for assessment of foreign body. Benefits and risks of the procedure were described. Informed consent was obtained. DESCRIPTION: The patient was brought into the endoscopy suite and laid in the left lateral decubitus position. An Olympus gastroscope was passed along the posterior oropharynx. The stomach was entered and no bile reflux was found. No residual foreign body or food boluses and distal esophagus or stomach. Additional findings are listed below.The first through third portion of the duodenum was examined and unremarkable. Retroflexion of the scope confirmed Hill grade 1 lower esophageal valve. The stomach was desufflated. The patient tolerated the procedure well. FINDINGS: No recurrent diaphragmatic hiatal hernia No foreign body Hill grade 1 lower esophageal valve. No active duodenitis. RECOMMENDATIONS: Upper endoscopy as needed. Plan - Discharge Summary Discharge Rx Participant: Yes New Discharge Prescriptions: No Action Cilostazol [Pletal] 100 mg PO HS Zolpidem Tartrate [Zolpidem Tartrate ER] 12.5 mg PO HS Atorvastatin [Lipitor] 20 mg PO HS #30 tab Loratadine 10 mg PO HS Dextroamphetamine/Amphetamine [Adderall] 20 mg PO DAILY PRN PRN Reason: ADD Acetaminophen [Tylenol Arthritis] 650 mg PO Q8H PRN PRN Reason: Pain Acetaminophen Oral Susp [Tylenol Oral Susp] 650 mg PO Q4H PRN #250 ml PRN Reason: Pain Discharge Medication List Cilostazol [Pletal] 100 mg PO HS 03/16/14 [History] Zolpidem Tartrate [Zolpidem Tartrate ER] 12.5 mg PO HS 04/21/16 [History] Atorvastatin [Lipitor] 20 mg PO HS #30 tab 04/24/16 [Rx] Loratadine 10 mg PO HS 03/22/17 [History] Dextroamphetamine/Amphetamine [Adderall] 20 mg PO DAILY PRN 02/18/19 [History] Acetaminophen [Tylenol Arthritis] 650 mg PO Q8H PRN 05/13/19 [History] Acetaminophen Oral Susp [Tylenol Oral Susp] 650 mg PO Q4H PRN #250 ml 05/20/19 [Rx] Follow up Appointment(s)/Referral(s): Jojo Mclaughlin MD [STAFF PHYSICIAN] - 06/07/19 Patient Instructions/Handouts: Esophageal Spasm (ED), Dysphagia (ED) Activity/Diet/Wound Care/Special Instructions: Continue full liquid diet through June 05. Discharge Disposition: HOME SELF-CARE
[2019-05-25 12:44] VITALS: BP 110/69; PULSE 60; RESP 18
== END 2019-05-25 12:51 | disposition home or self-care (01) ==
LOC: ORWHC2ENDO 10:57
PROVIDERS: ATTEND Surgery Plastic and Reconstructive Surgery
DX: K21.9 Gastro-esophageal reflux disease without esophagitis (principal); G47.33 Obstructive sleep apnea (adult) (pediatric); G25.81 Restless legs syndrome; M17.11 Unilateral primary osteoarthritis, right knee; Z90.49 Acquired absence of other specified parts of digestive tract; Z79.899 Other long term (current) drug therapy; Z88.1 Allergy status to other antibiotic agents; Z98.890 Other specified postprocedural states; Z82.69 Family history of other diseases of the musculoskeletal system and connective tissue; Z83.3 Family history of diabetes mellitus; Z82.49 Family history of ischemic heart disease and other diseases of the circulatory system
CPT/HCPCS: 43235; J2250; J2001; J3010; J2704

== ENCOUNTER → 2019-09-01 | Outpatient (CLI) | payer MEDICAID ==
--- NOTE | 2019-09-02 14:52 | MM ---
Reason for exam: screening (asymptomatic). Last mammogram was performed 4 years and 3 months ago. History: Patient is postmenopausal. Family history of breast cancer in maternal aunt. Physical Findings: A clinical breast exam by your physician is recommended on an annual basis and results should be correlated with mammographic findings. MG Screening Mammo w CAD Bilateral CC, MLO, and XCCL view(s) were taken. Prior study comparison: June 06, 2015, bilateral MG screening mammo w CAD. February 28, 2010, bilateral digital screening mammogram. The breast tissue is heterogeneously dense. This may lower the sensitivity of mammography. Stable benign calcifications. There is no discrete abnormality. No significant changes when compared with prior studies. ASSESSMENT: Benign, BI-RAD 2 RECOMMENDATION: Routine screening mammogram of both breasts in 1 year.
== END | disposition home or self-care (01) ==
LOC: RADMAMWWP 16:51
PROVIDERS: ATTEND Family Medicine
DX: Z12.31 Encounter for screening mammogram for malignant neoplasm of breast (principal)
CPT/HCPCS: 77067

== ENCOUNTER → 2019-09-23 | Outpatient (CLI) | payer MEDICAID ==
--- NOTE | 2019-09-26 10:43 | BD ---
EXAMINATION TYPE: Axial Bone Density DATE OF EXAM: 09/23/2019 COMPARISON: NONE CLINICAL HISTORY: Height: 65 Weight: 237.5 FRAX RISK QUESTIONS: Alcohol (3 or more units per day): no Family History (Parent hip fracture): no Glucocorticoids (More than 3mos): no (Ex: prednisone, prednisolone, methylprednisolone, dexamethasone, and hydrocortisone). History of Fracture in Adulthood: no Secondary Osteoporosis: 1. Type 1 Diabetes: no 2. Hyperthyroidism: no 3. Menopause before 45: no 4. Malnutrition: no 5. Chronic liver disease: no Rheumatoid Arthritis: no Current Tobacco Use: no RISK FACTORS HISTORY OF: Family History of Osteoporosis: yes Active: yes Diet low in dairy products/other sources of calcium: no Postmenopausal woman: age 54 Lost more than 2 inches in height since high school: just 2 inches MEDICATIONS: Adderall, ambien, allergy meds, cholesterol meds, leg cramp meds Additional History: EXAM MEASUREMENTS: Bone mineral densitometry was performed using the [employer]. Bone mineral density as measured about the Lumbar spine is: ----- L1-L4(G/cm2): 1.115 T Score Values are as follows: ----- L2: -1.1 ----- L3: -0.8 ----- L4: 0.3 ----- L1-L4: -0.5 Bone mineral density has: decreased -7.1 % since study of: 06.06.2015 Bone mineral density about the R hip (g/cm2): 0.803 Bone mineral density about the L hip (g/cm2): 0.832 T Score values are as follows: -----R Neck: -1.7 -----L Neck: -1.5 -----R Total: -1.8 -----L Total: -0.3 Bone mineral density has: decreased -11.2 % since study of: 06.06.2015 IMPRESSION: Osteopenia about the right femur. NOTE: T-SCORE=SD OF THE YOUNG ADULT MEAN.
== END | disposition home or self-care (01) ==
LOC: RADBDWWP 16:20
PROVIDERS: ATTEND Family Medicine
DX: M85.851 Other specified disorders of bone density and structure, right thigh (principal); Z78.0 Asymptomatic menopausal state
CPT/HCPCS: 77080

== ENCOUNTER → 2020-03-29 | Outpatient (CLI) | payer MEDICAID ==
--- NOTE | 2020-03-29 11:41 | FL ---
EXAMINATION TYPE: FL barium swallow DATE OF EXAM: 03/29/2020 CLINICAL HISTORY: Dysphasia TECHNIQUE: A double contrast esophagram is performed utilizing air and barium. A total of 39 second s of fluoroscopic time was utilized during procedure. 33 images are submitted. COMPARISON: None FINDINGS: The esophagus shows normal emptying into the stomach. Tertiary contractions the esophagus a re seen. No evidence of obstruction. No sizable hiatal hernia. IMPRESSION: 1. Tertiary contractions of esophagus with no evidence of obstruction. There may be very mild narrowi ng of the esophageal caliber at the level of the GE junction which could be correlated with direct vi sualization.
== END | disposition home or self-care (01) ==
LOC: RADUSWWP 10:57
PROVIDERS: ATTEND Surgery Plastic and Reconstructive Surgery
DX: K22.8 Other specified diseases of esophagus (principal)
CPT/HCPCS: 74220

== ENCOUNTER 2020-04-04 09:02 | Day surgery (SDC) | payer MEDICAID ==
[2020-03-28 15:52] VITALS: BMI 40.0
--- NOTE | 2020-04-04 08:24 | P.GSHP ---
History of Present Illness H&P Date: 04/04/20 CHIEF COMPLAINT: GERD HISTORY OF PRESENT ILLNESS: The patient is a 59-year-old female who presents reports gastroesophageal reflux disease. Upper endoscopy was offered for further evaluation and management. PAST MEDICAL HISTORY: Please see list. PAST SURGICAL HISTORY: Please see list. MEDICATIONS: Please see list. ALLERGIES: Please see list. SOCIAL HISTORY: No illicit drug use FAMILY HISTORY: No reports of Crohn disease or ulcerative colitis. REVIEW OF ORGAN SYSTEMS: CONSTITUTIONAL: No reports of fevers or chills. GI: Denies any blood in stools or constipation. PHYSICAL EXAM: VITAL SIGNS: Stable GENERAL: Well-developed and pleasant in no acute distress. HEENT: No scleral icterus. Extraocular movements grossly intact. Moist buccal mucosa. NECK: Supple without lymphadenopathy. CHEST: Unlabored respirations. Equal bilateral excursions. CARDIOVASCULAR: Regular rate and rhythm. Distal 2+ pulses. ABDOMEN: Soft, nondistended. MUSCULOSKELETAL: No clubbing, cyanosis, or edema. ASSESSMENT: 1. Gastroesophageal reflux disease PLAN: 1. Recommend proceeding with an upper endoscopy Past Medical History Past Medical History: Osteoarthritis (OA), Sleep Apnea/CPAP/BIPAP Additional Past Medical History / Comment(s): NO CPAP, IRREGULAR HEART BEAT DURING , HX OF JAUNDICE 1974- RESTLESS LEG SYNDROME, arthritis R knee, FEELS LIKE FOOD IS GETTING STUCK History of Any Multi-Drug Resistant Organisms: None Reported Past Surgical History: Section, Cholecystectomy, Hernia Repair, Orthopedic Surgery, Uterine Ablation Additional Past Surgical History / Comment(s): RT KNEE ARTHROSCOPY, X2, right shoulder rotator cuff repair,, R foot spur removal, colonoscopy, robotic repair incarcerated paraesophageal hiatal hernia 05-19-19, EGD Past Anesthesia/Blood Transfusion Reactions: Motion Sickness, Postoperative Nausea & Vomiting (PONV) Additional Past Anesthesia/Blood Transfusion Reaction / Comment(s): mother had no problems with prior blood transfusion,no hx blood transfusion Smoking Status: Never smoker - Past Family History Father Family Medical History: Musculoskeletal Disorder, Neurologic Disorder Additional Family Medical History / Comment(s): Father of Brenna Gherigs disease in his 60's Mother Family Medical History: Diabetes Mellitus, Hypertension Additional Family Medical History / Comment(s): Mother of Mylodysplasia at the age of 80 yrs. Medications and Allergies Home Medications Medication Instructions Recorded Confirmed Type Cilostazol [Pletal] 100 mg PO HS 03/16/14 03/28/20 History Zolpidem Tartrate [Zolpidem 12.5 mg PO HS 04/21/16 03/28/20 History Tartrate ER] Atorvastatin [Lipitor] 20 mg PO HS #30 tab 04/24/16 03/28/20 Rx Loratadine 10 mg PO HS 03/22/17 03/28/20 History Dextroamphetamine/Amphetamine 20 mg PO DAILY PRN 02/18/19 03/28/20 History [Adderall] Calcium/Magnesium/Zinc 1 each PO DAILY 03/28/20 03/28/20 History [Msnyfmn-Wwnoqbike-Grzi Tablet] Multivitamins, Thera [Multivitamin 1 tab PO DAILY 03/28/20 03/28/20 History (formulary)] Allergies Allergy/AdvReac Type Severity Reaction Status Date / Time quinine Allergy Severe Rash/Hives/lupus Verified 03/28/20 15:41 like symptoms
[2020-04-04 09:25] VITALS: TEMP 97.7
[2020-04-04] MEDS ORDERED: PROPOFOL 10 MG/ML 20 ML VIAL IV ONE (10:05)
[2020-04-04 10:32] VITALS: RESP 16
[2020-04-04 10:45] VITALS: BP 130/82; PULSE 67
--- NOTE | 2020-04-04 10:45 | P.PCN ---
Date of Procedure: 04/04/20 Description of Procedure: PREOPERATIVE DIAGNOSIS: Gastroesophageal reflux disease. Morbid obesity. History of paraesophageal hiatal hernia POSTOPERATIVE DIAGNOSIS: Morbid obesity. Gastritis. Gastroesophageal reflux disease. History of paraesophageal hiatal hernia OPERATION: Esophagogastroduodenoscopy with biopsies along antrum. SURGEON: Jojo Mclaughlin MD ANESTHESIA: MAC. INDICATIONS: The patient is a 59-year-old female who presents with a history of reflux disease. Benefits and risks of the procedure were described. Informed consent was obtained. DESCRIPTION: The patient was brought into the endoscopy suite and laid in the left lateral decubitus position. An Olympus gastroscope was passed along the posterior oropharynx down to the distal esophagus where the squamocolumnar junction was encountered at 37 cm from the incisors. The stomach was entered and no bile reflux was found. Additional findings are listed below. Biopsies with cold forceps were obtained of the antrum. The first through third portion of the duodenum was examined and unremarkable. Retroflexion of the scope confirmed Hill grade 2 lower esophageal valve. The squamocolumnar junction demonstrated no LA grade A erosive esophagitis. The stomach was desufflated. The patient tolerated the procedure well. FINDINGS: Squamocolumnar junction 37 cm from the incisors. Diaphragmatic hiatus at 37 cm. No recurrent large diaphragmatic hiatal hernia Hill grade 2 lower esophageal valve. No LA grade A erosive esophagitis. No active duodenitis. Chronic gastritis RECOMMENDATIONS: Upper endoscopy as needed Plan - Discharge Summary Discharge Rx Participant: Yes New Discharge Prescriptions: Continue Cilostazol [Pletal] 100 mg PO HS Zolpidem Tartrate [Zolpidem Tartrate ER] 12.5 mg PO HS Atorvastatin [Lipitor] 20 mg PO HS #30 tab Loratadine 10 mg PO HS Dextroamphetamine/Amphetamine [Adderall] 20 mg PO DAILY PRN PRN Reason: ADD Multivitamins, Thera [Multivitamin (formulary)] 1 tab PO DAILY Calcium/Magnesium/Zinc [Gebyteg-Qgdnltfjz-Ajfq Tablet] 1 each PO DAILY Discharge Medication List Cilostazol [Pletal] 100 mg PO HS 03/16/14 [History] Zolpidem Tartrate [Zolpidem Tartrate ER] 12.5 mg PO HS 04/21/16 [History] Atorvastatin [Lipitor] 20 mg PO HS #30 tab 08/18/16 [Rx] Loratadine 10 mg PO HS 03/22/17 [History] Dextroamphetamine/Amphetamine [Adderall] 20 mg PO DAILY PRN 02/18/19 [History] Calcium/Magnesium/Zinc [Thhwumj-Zzclnjfdq-Owxm Tablet] 1 each PO DAILY 03/28/20 [History] Multivitamins, Thera [Multivitamin (formulary)] 1 tab PO DAILY 03/28/20 [History] Follow up Appointment(s)/Referral(s): Jojo Mclaughlin MD [STAFF PHYSICIAN] - 04/17/20 Patient Instructions/Handouts: *[facility] - (Anesthesia) Endoscopy Discharge Instructions, Hiatal Hernia (DC), Upper Endoscopy (DC) Discharge Disposition: HOME SELF-CARE
== END 2020-04-04 11:13 | disposition home or self-care (01) ==
LOC: ORWHC2ENDO 09:02
PROVIDERS: ATTEND Surgery Plastic and Reconstructive Surgery
DX: K21.9 Gastro-esophageal reflux disease without esophagitis (principal); K29.50 Unspecified chronic gastritis without bleeding; E66.01 Morbid (severe) obesity due to excess calories; E78.5 Hyperlipidemia, unspecified; G47.33 Obstructive sleep apnea (adult) (pediatric); Z68.41 Body mass index [BMI] 40.0-44.9, adult; Z87.19 Personal history of other diseases of the digestive system; Z88.8 Allergy status to other drugs, medicaments and biological substances; Z86.79 Personal history of other diseases of the circulatory system; G25.81 Restless legs syndrome; M17.11 Unilateral primary osteoarthritis, right knee; Z98.890 Other specified postprocedural states; Z90.49 Acquired absence of other specified parts of digestive tract; Z87.39 Personal history of other diseases of the musculoskeletal system and connective tissue; Z87.898 Personal history of other specified conditions; Z91.89 Other specified personal risk factors, not elsewhere classified; Z79.899 Other long term (current) drug therapy; Z82.69 Family history of other diseases of the musculoskeletal system and connective tissue; Z82.0 Family history of epilepsy and other diseases of the nervous system; Z83.3 Family history of diabetes mellitus; Z82.49 Family history of ischemic heart disease and other diseases of the circulatory system; Z80.8 Family history of malignant neoplasm of other organs or systems
CPT/HCPCS: 88305; 43239; J2704

== ENCOUNTER → 2020-04-30 | Outpatient (CLI) | payer MEDICAID | END | disposition home or self-care (01) | LOC: LABWHC1 11:32 | PROVIDERS: ATTEND Family Medicine | DX: Z11.59 Encounter for screening for other viral diseases (principal); R19.7 Diarrhea, unspecified | CPT/HCPCS: U0003; C9803 ==

== ENCOUNTER → 2020-06-29 | Outpatient (CLI) | payer MEDICAID | END | disposition home or self-care (01) | LOC: LABWHC1 09:29 | PROVIDERS: ATTEND Pediatrics Pediatric Infectious Diseases | DX: Z20.828 Contact with and (suspected) exposure to other viral communicable diseases (principal) | CPT/HCPCS: U0003; C9803 ==

== ENCOUNTER → 2020-07-05 | Outpatient (CLI) | payer MEDICAID ==
--- NOTE | 2020-07-05 10:01 | P.STRESS ---
- Stress Test Note Stress Test Results/Findings: Exam Performed: stress test Exam Date: 07/05/20 Reason for Exam: SHORTNESS OF BREATH Height: 5 ft 5 in Weight: 113.398 kg Protocol: ELIGIO Stage: 2 Duration of Exercise: 5:00 Resting Heart Rate: 77 Resting Blood Pressure: 124/80 Maximum Achieved Heart Rate: 144 Maximum Achieved Blood Pressure: 219/95 85% PMHR: 136 100% PMHR: 160 METS: 7.0 Technologist Comment: Stress Test Results/Findings: This is a 59-year-old female with history of a shortness of breath, palpitation, hypercholesteremia being evaluated for cardiac status. Stress data: Baseline EKG showed sinus rhythm with normal VA interval and QRS duration. Blood pressure at rest is 124/80 with pulse rate of 77. Patient walked on the Eligio protocol for 5 minutes achieving a maximal heart rate of 144 with a blood pressure of 219/95. EKGs taken during and after the exercise did not reveal any significant changes from the baseline. Patient did not experience any chest pain but complained of shortness of breath. No arrhythmias noted. Final impression: #1. Negative stress test #2. The test was stopped because of shortness of breath but 3. No chest pain #4. He had no arrhythmias. #5. Exercise capacity is below average.
--- NOTE | 2020-07-05 11:00 | ECHOF ---
Referral Reason:R00.2 palpitations/ R06.02 Shortness of breath MEASUREMENTS -------- HEIGHT: 165.1 cm WEIGHT: 113.4 kg BP: RVIDd: 3.7 cm (< 3.3) IVSd: 1.5 cm (0.6 - 1.1) LVIDd: 3.0 cm (3.9 - 5.3) LVPWd: 1.5 cm (0.6 - 1.1) IVSs: 1.7 cm LVIDs: 1.8 cm LVPWs: 1.7 cm LAESV Index (A-L): 20.46 ml/m Ao Diam: 3.3 cm (2.0 - 3.7) AV Cusp: 1.8 cm (1.5 - 2.6) MV E Yahir: 0.82 m/s MV DecT: 228 ms MV A Yahir: 0.98 m/s MV E/A Ratio: 0.84 RAP: 5.00 mmHg RVSP: 29.68 mmHg FINDINGS -------- Sinus rhythm. This was a technically adequate study. The left ventricular size is normal. There is moderate concentric left ventricular hypertrophy. O verall left ventricular systolic function is normal with, an EF between 55 - 60 %. The diastolic fi lling pattern is normal for the age of the patient 13.44. The right ventricle is mildly enlarged. Normal LA size by volume 22+/-6 ml/m2. The right atrial size is normal. Interatrial and interventricular septum intact. The aortic valve was not well visualized. There is no evidence of aortic regurgitation. There is no evidence of aortic stenosis. There is trace mitral regurgitation. Mild tricuspid regurgitation present. There is no evidence of pulmonary hypertension. The right v entricular systolic pressure, as measured by Doppler, is 29.68mmHg. There is no pulmonic regurgitation present. The aortic root size is normal. IVC Not well visulized. There is no pericardial effusion. CONCLUSIONS -------- 1. The left ventricular size is normal. 2. There is moderate concentric left ventricular hypertrophy. 3. Overall left ventricular systolic function is normal with, an EF between 55 - 60 %. 4. The diastolic filling pattern is normal for the age of the patient 13.44 5. The right ventricle is mildly enlarged. 6. There is trace mitral regurgitation. 7. Mild tricuspid regurgitation present. HOSTEL MANAGER: Krupa Sullivan RDCS
--- NOTE | 2020-07-05 11:09 | EST ---
Stress Test Results/Findings: Exam Performed: stress test Exam Date: 07/05/20 Reason for Exam: SHORTNESS OF BREATH Height: 5 ft 5 in Weight: 113.398 kg Protocol: ELIGIO Stage: 2 Duration of Exercise: 5:00 Resting Heart Rate: 77 Resting Blood Pressure: 124/80 Maximum Achieved Heart Rate: 144 Maximum Achieved Blood Pressure: 219/95 85% PMHR: 136 100% PMHR: 160 METS: 7.0 Technologist Comment: Stress Test Results/Findings: This is a 59-year-old female with history of a shortness of breath, palpitation, hypercholesteremia being evaluated for cardiac status. Stress data: Baseline EKG showed sinus rhythm with normal KS interval and QRS duration. Blood pressure at rest is 124/80 with pulse rate of 77. Patient walked on the Eligio protocol for 5 minutes achieving a maximal heart rate of 144 with a blood pressure of 219/95. EKGs taken during and after the exercise did not reveal any significant changes from the baseline. Patient did not experience any chest pain but complained of shortness of breath. No arrhythmias noted. Final impression: #1. Negative stress test #2. The test was stopped because of shortness of breath but 3. No chest pain #4. He had no arrhythmias. #5. Exercise capacity is below average. MTDD
== END | disposition home or self-care (01) ==
LOC: RADNMMAIN 08:33
PROVIDERS: ATTEND Family Medicine
DX: I07.1 Rheumatic tricuspid insufficiency (principal); R00.2 Palpitations; R06.02 Shortness of breath
CPT/HCPCS: 93017; 93306

== ENCOUNTER → 2020-08-23 | Outpatient (CLI) | payer MEDICAID | END | disposition home or self-care (01) | LOC: LABWHC1 10:11 | PROVIDERS: ATTEND Pediatrics Pediatric Infectious Diseases | DX: Z20.828 Contact with and (suspected) exposure to other viral communicable diseases (principal) | CPT/HCPCS: 87635; C9803 ==

== ENCOUNTER → 2020-08-24 | Outpatient (CLI) | payer MEDICAID | END | disposition home or self-care (01) | LOC: LABWHC1 08:58 | PROVIDERS: ATTEND Pediatrics Pediatric Infectious Diseases | DX: Z53.9 Procedure and treatment not carried out, unspecified reason (principal) ==

== ENCOUNTER 2021-01-29 13:08 | Emergency (ER) | payer MEDICAID, OTHER ==
[2021-01-29 13:32] VITALS: RESP 18; TEMP 98.6
[2021-01-29] MEDS ORDERED: HYDROcodone/APAP 5-325MG 1 EACH TAB PO STA (13:46)
--- NOTE | 2021-01-29 15:18 | XR ---
EXAMINATION TYPE: XR ankle complete RT, XR knee complete bilateral, XR foot complete RT DATE OF EXAM: 01/29/2021 CLINICAL HISTORY: 60-year-old female with pain after fall TECHNIQUE: Frontal, lateral and oblique images of the right ankle and foot are obtained. Complete bi lateral knee was also obtained COMPARISON: None. FINDINGS: Right ankle: No evidence of acute fracture or dislocation of the right ankle. Ankle mortise is intact. Distal tibia and distal fibular and alignment. Prominent plantar calcaneal spur. Bilateral knee: No evidence of fracture or dislocation of the bilateral knees. There is mild medial a nd patellofemoral compartment joint space narrowing of both knees suggestive of osteoarthritis. Cross table lateral view show no significant joint effusion. Soft tissues are unremarkable. Right foot: There is no evidence of fracture or dislocation of the right foot. The tarsals, metatarsa ls and phalanges are in alignment. Plantar calcaneal spur. Soft tissues are unremarkable. IMPRESSION: 1. No evidence of fracture or dislocation of the right ankle or right foot. 2. No evidence of fracture or dislocation of bilateral knees. Mild medial and patellofemoral compartm ent joint space during of both knees suggestive of osteoarthritis.
[2021-01-29] MEDS ORDERED: ACET/COD 300 MG/30 MG STARTER PACK 6 TAB BTL PO STA (15:22)
--- NOTE | 2021-01-29 15:23 | ED ---
Lower Extremity Injury HPI - General Chief Complaint: Extremity Injury, Lower Stated Complaint: [facility]- Fall Time Seen by Provider: 01/29/21 13:35 Source: patient Mode of arrival: ambulatory Limitations: no limitations - History of Present Illness Initial Comments: 60yo female presenting today for cc of right ankle, bilateral knee pain after fall. pt states that she fell today while leaving a patients home. pt states she sustained an abrasion to the left knee and pain in the knees b/l. denies head neck chest abdomen injury. denies chest pain dyspnea. states it was a trip and fall. pt states she can barely put weight on the right ankle. pt denies additional complaints or injuries. remaining ROS (-) - Related Data Home Medications Medication Instructions Recorded Confirmed Cilostazol [Pletal] 100 mg PO HS 03/16/14 03/28/20 Zolpidem Tartrate [Zolpidem 12.5 mg PO HS 04/21/16 03/28/20 Tartrate ER] Loratadine 10 mg PO HS 03/22/17 03/28/20 Dextroamphetamine/Amphetamine 20 mg PO DAILY PRN 02/18/19 03/28/20 [Adderall] Calcium/Magnesium/Zinc 1 each PO DAILY 03/28/20 03/28/20 [Qrngzzi-Stvgjroju-Orop Tablet] Multivitamins, Thera [Multivitamin 1 tab PO DAILY 03/28/20 04/04/20 (formulary)] Previous Rx's Medication Instructions Recorded Atorvastatin [Lipitor] 20 mg PO HS #30 tab 04/24/16 Allergies Allergy/AdvReac Type Severity Reaction Status Date / Time quinine Allergy Severe Rash/Hives/lupus Verified 01/29/21 13:32 like symptoms Review of Systems ROS Statement: Those systems with pertinent positive or pertinent negative responses have been documented in the HPI. ROS Other: All systems not noted in ROS Statement are negative. Past Medical History Past Medical History: Osteoarthritis (OA), Sleep Apnea/CPAP/BIPAP Additional Past Medical History / Comment(s): NO CPAP, IRREGULAR HEART BEAT DURING , HX OF JAUNDICE 1974- RESTLESS LEG SYNDROME, arthritis R knee, FEELS LIKE FOOD IS GETTING STUCK History of Any Multi-Drug Resistant Organisms: None Reported Past Surgical History: Section, Cholecystectomy, Hernia Repair, Orthopedic Surgery, Uterine Ablation Additional Past Surgical History / Comment(s): RT KNEE ARTHROSCOPY, X2, right shoulder rotator cuff repair,, R foot spur removal, colonoscopy, robotic repair incarcerated paraesophageal hiatal hernia 05-19-19, EGD Past Anesthesia/Blood Transfusion Reactions: Motion Sickness, Postoperative Nausea & Vomiting (PONV) Additional Past Anesthesia/Blood Transfusion Reaction / Comment(s): mother had no problems with prior blood transfusion,no hx blood transfusion Past Psychological History: ADD/ADHD Smoking Status: Never smoker Past Alcohol Use History: None Reported Past Drug Use History: None Reported - Past Family History Father Family Medical History: Musculoskeletal Disorder, Neurologic Disorder Additional Family Medical History / Comment(s): Father of Brenna Gherigs disease in his 60's Mother Family Medical History: Diabetes Mellitus, Hypertension Additional Family Medical History / Comment(s): Mother of Mylodysplasia at the age of 80 yrs. General Exam Limitations: no limitations General appearance: alert, in no apparent distress Head exam: Present: atraumatic, normocephalic Eye exam: Present: normal appearance, PERRL, EOMI ENT exam: Present: normal exam Neck exam: Present: normal inspection, full ROM. Absent: tenderness, meningismu s GI/Abdominal exam: Present: soft. Absent: distended, guarding, rebound, rigid Rectal exam: Present: deferred Right Knee exam: Present: normal inspection, full ROM, tenderness Ankle exam: Present: full ROM, tenderness, swelling. Absent: abrasion, laceration, dislocation, erythema Foot/Toe exam: Present: normal inspection, full ROM. Absent: tenderness, swelling Left Knee exam: Present: full ROM, tenderness, abrasion. Absent: swelling, deformity Neurovascular tendon exam: Present: no vascular compromise Neurological exam: Present: alert, altered, oriented X3, CN II-XII intact, no rmal gait Psychiatric exam: Present: normal affect Skin exam: Present: warm, dry, intact Course Vital Signs 01/29/21 01/29/21 13:28 16:16 Temperature 98.6 F Pulse Rate 71 67 Respiratory 18 18 Rate Blood Pressure 161/92 132/84 O2 Sat by Pulse 96 99 Oximetry Medical Decision Making - Medical Decision Making imaging negative pt neurovascularly intact. no additional complaints. splintted and discharged appearing well. is to f/u with pcp and rest 3 days cleared by pcp for work Disposition Clinical Impression: Fall, Right ankle sprain, Abrasion of left knee, Bilateral anterior knee pain Disposition: HOME SELF-CARE Condition: Good Instructions (If sedation given, give patient instructions): Ankle Sprain (ED), Knee Pain (ED) Additional Instructions: Please use medication as discussed. Please follow-up with family doctor in the next 2 days. Please return to emergency room if the symptoms increase or worsen or for any other concerns. Is patient prescribed a controlled substance at d/c from ED?: No Referrals: Chuck Bradford DO [Primary Care Provider] - 1-2 days Time of Disposition: 15:23
[2021-01-29 16:17] VITALS: BP 132/84; PULSE 67
== END 2021-01-29 16:17 | disposition home or self-care (01) ==
LOC: EC 13:08
DX: S93.401A Sprain of unspecified ligament of right ankle, initial encounter (principal); S80.212A Abrasion, left knee, initial encounter; M25.561 Pain in right knee; G25.81 Restless legs syndrome; M17.11 Unilateral primary osteoarthritis, right knee; Z82.49 Family history of ischemic heart disease and other diseases of the circulatory system; Z83.3 Family history of diabetes mellitus; W01.0XXA Fall on same level from slipping, tripping and stumbling without subsequent striking against object, initial encounter

== ENCOUNTER → 2021-04-17 | Outpatient (CLI) | payer MEDICAID ==
--- NOTE | 2021-04-17 15:45 | XR ---
EXAMINATION TYPE: XR KUB DATE OF EXAM: 04/17/2021 COMPARISON: None HISTORY: Left flank pain TECHNIQUE: AP abdomen FINDINGS: Osseous structures appear intact. Psoas margins are normal. No suspicious calcifications ar e present. Costochondral calcification is noted. No mass effect is evident. IMPRESSION: 1. No acute abnormality
== END | disposition home or self-care (01) ==
LOC: RADXRMAIN 12:46
PROVIDERS: ATTEND Nurse Practitioner Family
DX: R10.9 Unspecified abdominal pain (principal)
CPT/HCPCS: 74018

== ENCOUNTER 2022-01-03 07:10 | Emergency (ER) | payer MEDICAID ==
[2022-01-03 07:22] VITALS: RESP 18; TEMP 98.6
[2022-01-03 07:55] LABS: Appearance,Urine Clear (Clear); Bilirubin,Urine Negative (Negative); Blood,Urine Moderate (Negative); Color,Urine Yellow; Glucose,Urine (UA) Negative (Negative); Ketones,Urine Negative (Negative); Leukocyte Esterase,Urine Negative (Negative); Mucus,Urine Rare /hpf; Nitrite,Urine Negative (Negative); PH, Urine 5.5 (5.0-8.0); Protein,Urine Negative (Negative); RBC,Urine 163 /hpf (0-5); Specific Gravity,Urine 1.017 (1.001-1.035); Squamous Epithelial Cell,Urine <1 /hpf (0-4); Urobilinogen,Urine <2.0 mg/dL (<2.0); WBC,Urine 1 /hpf (0-5)
[2022-01-03 07:57] LABS: Albumin 4.4 g/dL (3.5-5.0); Calcium 9.6 mg/dL (8.4-10.2); Potassium 4.7 mmol/L (3.5-5.1); Total Bilirubin 0.7 mg/dL (0.2-1.3); Total Protein 7.7 g/dL (6.3-8.2)
[2022-01-03 07:59] LABS: Basophils % (A) 0 %; Eosinophils # (A) 0.2 k/uL (0-0.7); Eosinophils % (A) 2 %; HCT 45.3 % (34.0-46.0); Lymphocytes # (A) 1.6 k/uL (1.0-4.8); Lymphocytes % (A) 15 %; MCH 29.6 pg (25.0-35.0); MCHC 33.1 g/dL (31.0-37.0); MCV 89.4 fL (80.0-100.0); Mean Platelet Volume 7.1; Monocytes # (A) 0.5 k/uL (0-1.0); Monocytes % (A) 4 %; Neutrophils # (A) 7.9 k/uL (1.3-7.7); Neutrophils % (A) 77 %; Platelet Count 374 k/uL (150-450); RBC 5.07 m/uL (3.80-5.40); RDW 13.2 % (11.5-15.5); WBC 10.3 k/uL (3.8-10.6)
[2022-01-03 08:00] LABS: INR 0.9 (<1.2); Partial Thromboplastin Time 24.1 sec (22.0-30.0)
[2022-01-03] MEDS ORDERED: MORPHINE SULFATE 4 MG/ML SYRINGE IVP STA (08:07)
--- NOTE | 2022-01-03 08:09 | CT ---
EXAMINATION TYPE: CT abdomen pelvis wo con DATE OF EXAM: 01/03/2022 HISTORY: Rt flank pain. History of renal stones. CT DLP: 1175.4 mGycm. Automated Exposure Control for Dose Reduction was Utilized. TECHNIQUE: CT scan of the abdomen and pelvis is performed without oral or IV contrast. COMPARISON: CT abdomen and pelvis March 22, [address] pelvis study 2014. FINDINGS: Within the limitations of a non-contrast study, the following observations are made. LUNG BASES: No significant abnormality is appreciated. LIVER/GB: Cholecystectomy clips are redemonstrated. No new biliary dilatation. PANCREAS: No significant abnormality is seen. SPLEEN: No significant abnormality is seen. ADRENALS: No significant abnormality is seen. KIDNEYS: No renal calculi seen bilaterally. Persistent cystic prominence bilaterally consistent with parapelvic cysts. No left-sided hydroureter. There is a 6 to 7 mm calculus in the distal right ureter coronal image 66 causing new mild to moderate right-sided hydronephrosis. No intraluminal calculus i n the bladder. Some adjacent scattered right-sided pelvic phleboliths. BOWEL: Diverticula in the sigmoid colon are present. No CT evidence for acute diverticulitis. Occasio nal diverticula in the transverse colon. No suspicious small or large bowel dilatation. Poor distenti on of stomach limits evaluation at this level. Normal-appearing appendix on the cecum. GENITAL ORGANS: Anteverted uterus. LYMPH NODES: No greater than 1cm abdominal or pelvic lymph nodes are appreciated. OSSEOUS STRUCTURES: Marked disc space narrowing with Ossific fusion of the anterior aspect of the T10 -T12 vertebra is redemonstrated. Facet arthropathy lower lumbar levels. OTHER: Small fat-containing umbilical hernia. IMPRESSION: New 6 to 7 mm distal right ureter calculus causing [id number] right-sided hydroneph rosis
--- NOTE | 2022-01-03 08:09 | ED ---
General Adult HPI - General Chief complaint: Abdominal Pain Stated complaint: R side flank pain Time Seen by Provider: 01/03/22 07:12 Source: patient, EMS, RN notes reviewed, old records reviewed Mode of arrival: EMS Limitations: no limitations - History of Present Illness Initial comments: 61-year-old female presenting with right flank pain, abdominal pain nausea vomiting. Symptoms began about 5 hours prior to arrival. Patient states she has had kidney stones in the past and this did feel somewhat similar. She states she had a small bowel movement yesterday. She had 4 total episodes of vomiting, no fever. No hematuria. - Related Data Home Medications Medication Instructions Recorded Confirmed Cilostazol [Pletal] 100 mg PO HS 03/16/14 03/28/20 Zolpidem Tartrate [Zolpidem 12.5 mg PO HS 04/21/16 03/28/20 Tartrate ER] Calcium/Magnesium/Zinc 1 each PO DAILY 03/28/20 03/28/20 [Auhmadi-Mzwyamwsz-Cxwm Tablet] Multivitamins, Thera [Multivitamin 1 tab PO DAILY 03/28/20 04/04/20 (formulary)] Ascorbic Acid [Vitamin C] 500 mg PO HS 01/03/22 01/03/22 Cholecalciferol [Vitamin D3 (25 25 mcg PO HS 01/03/22 01/03/22 Mcg = 1000 Iu)] Cider Vinegar [Apple Cider Vinegar] 300 mg PO HS 01/03/22 01/03/22 Previous Rx's Medication Instructions Recorded Atorvastatin [Lipitor] 20 mg PO HS #30 tab 04/24/16 HYDROcodone/APAP 5-325MG [[place] 1 tab PO Q6HR PRN #12 tab 01/03/22 5-325] Ibuprofen [Motrin] 600 mg PO Q8HR PRN #24 tab 01/03/22 Ondansetron Odt [Zofran Odt] 4 mg PO Q8HR PRN #10 tab 01/03/22 Allergies Allergy/AdvReac Type Severity Reaction Status Date / Time quinine Allergy Severe Rash/Hives/lupus Verified 01/03/22 08:19 like symptoms Review of Systems ROS Statement: Those systems with pertinent positive or pertinent negative responses have been documented in the HPI. ROS Other: All systems not noted in ROS Statement are negative. Past Medical History Past Medical History: Osteoarthritis (OA), Sleep Apnea/CPAP/BIPAP Additional Past Medical History / Comment(s): NO CPAP, IRREGULAR HEART BEAT DURING , HX OF JAUNDICE 1974- RESTLESS LEG SYNDROME, arthritis R knee, FEELS LIKE FOOD IS GETTING STUCK History of Any Multi-Drug Resistant Organisms: None Reported Past Surgical History: Section, Cholecystectomy, Hernia Repair, Orthopedic Surgery, Uterine Ablation Additional Past Surgical History / Comment(s): RT KNEE ARTHROSCOPY, X2, right shoulder rotator cuff repair,, R foot spur removal, colonoscopy, robotic repair incarcerated paraesophageal hiatal hernia 05-19-19, EGD Past Anesthesia/Blood Transfusion Reactions: Motion Sickness, Postoperative Nausea & Vomiting (PONV) Additional Past Anesthesia/Blood Transfusion Reaction / Comment(s): mother had no problems with prior blood transfusion,no hx blood transfusion Past Psychological History: ADD/ADHD Smoking Status: Never smoker Past Alcohol Use History: None Reported Past Drug Use History: None Reported - Past Family History Father Family Medical History: Musculoskeletal Disorder, Neurologic Disorder Additional Family Medical History / Comment(s): Father of Brenna Gherigs disease in his 60's Mother Family Medical History: Diabetes Mellitus, Hypertension Additional Family Medical History / Comment(s): Mother of Mylodysplasia at the age of 80 yrs. General Exam Limitations: no limitations General appearance: alert, in no apparent distress Head exam: Present: atraumatic, normocephalic Eye exam: Present: normal appearance, PERRL ENT exam: Present: normal exam Neck exam: Present: normal inspection. Absent: tenderness, meningismus Respiratory exam: Present: normal lung sounds bilaterally. Absent: respiratory distress, wheezes Cardiovascular Exam: Present: regular rate, normal rhythm GI/Abdominal exam: Present: soft. Absent: distended, tenderness, guarding Extremities exam: Present: normal inspection, normal capillary refill. Absent: pedal edema Neurological exam: Present: alert, oriented X3, CN II-XII intact. Absent: motor sensory deficit Psychiatric exam: Present: normal affect, normal mood Skin exam: Present: warm, dry, intact. Absent: cyanosis, diaphoretic Course Vital Signs 01/03/22 07:13 Temperature 98.6 F Pulse Rate 77 Respiratory 18 Rate Blood Pressure 162/103 O2 Sat by Pulse 93 L Oximetry Medical Decision Making - Medical Decision Making 61-year-old female with right flank pain and abdominal pain nausea vomiting, concern for renal colic. Workup was initiated, she has hematuria with 163 red cells in the urine. No signs of infection currently. She has normal CBC, normal CMP, CT shows a distal obstructing kidney stone a proximally 6-7 mm with associated hydronephrosis and hydroureter. Patient feeling much better on reevaluation. She can return parameters as well as follow-up with urology. She's given a urine strainer. - Lab Data Result diagrams: 01/03/22 07:33 01/03/22 07:33 Lab Results 01/03/22 01/03/22 01/03/22 Range/Units 07:33 07:33 07:33 WBC 10.3 (3.8-10.6) k/uL RBC 5.07 (3.80-5.40) m/uL Hgb 15.0 (11.4-16.0) gm/dL Hct 45.3 (34.0-46.0) % MCV 89.4 (80.0-100.0) fL MCH 29.6 (25.0-35.0) pg MCHC 33.1 (31.0-37.0) g/dL RDW 13.2 (11.5-15.5) % Plt Count 374 (150-450) k/uL MPV 7.1 Neutrophils % 77 % Lymphocytes % 15 % Monocytes % 4 % Eosinophils % 2 % Basophils % 0 % Neutrophils # 7.9 H (1.3-7.7) k/uL Lymphocytes # 1.6 (1.0-4.8) k/uL Monocytes # 0.5 (0-1.0) k/uL Eosinophils # 0.2 (0-0.7) k/uL Basophils # 0.0 (0-0.2) k/uL PT 10.0 (9.0-12.0) sec INR 0.9 (<1.2) APTT 24.1 (22.0-30.0) sec Sodium (137-145) mmol/L Potassium (3.5-5.1) mmol/L Chloride (98-107) mmol/L Carbon Dioxide (22-30) mmol/L Anion Gap mmol/L BUN (7-17) mg/dL Creatinine (0.52-1.04) mg/dL Est GFR (CKD-EPI)AfAm (>60 ml/min/1.73 sqM) Est GFR (CKD-EPI)NonAf (>60 ml/min/1.73 sqM) Glucose (74-99) mg/dL Plasma Lactic Acid Mohinder (0.7-2.0) mmol/L Calcium (8.4-10.2) mg/dL Total Bilirubin (0.2-1.3) mg/dL AST (14-36) U/L ALT (4-34) U/L Alkaline Phosphatase (38-126) U/L Total Protein (6.3-8.2) g/dL Albumin (3.5-5.0) g/dL Amylase (30-110) U/L Lipase (23-300) U/L Urine Color Yellow Urine Appearance Clear (Clear) Urine pH 5.5 (5.0-8.0) Ur Specific [place] 1.017 (1.001-1.035) Urine Protein Negative (Negative) Urine Glucose (UA) Negative (Negative) Urine Ketones Negative (Negative) Urine Blood Moderate H (Negative) Urine Nitrite Negative (Negative) Urine Bilirubin Negative (Negative) Urine Urobilinogen <2.0 (<2.0) mg/dL Ur Leukocyte Esterase Negative (Negative) Urine RBC 163 H (0-5) /hpf Urine WBC 1 (0-5) /hpf Ur Squamous Epith Cells <1 (0-4) /hpf Urine Mucus Rare H (None) /hpf 01/03/22 01/03/22 Range/Units 07:33 07:33 WBC (3.8-10.6) k/uL RBC (3.80-5.40) m/uL Hgb (11.4-16.0) gm/dL Hct (34.0-46.0) % MCV (80.0-100.0) fL MCH (25.0-35.0) pg MCHC (31.0-37.0) g/dL RDW (11.5-15.5) % Plt Count (150-450) k/uL MPV Neutrophils % % Lymphocytes % % Monocytes % % Eosinophils % % Basophils % % Neutrophils # (1.3-7.7) k/uL Lymphocytes # (1.0-4.8) k/uL Monocytes # (0-1.0) k/uL Eosinophils # (0-0.7) k/uL Basophils # (0-0.2) k/uL PT (9.0-12.0) sec INR (<1.2) APTT (22.0-30.0) sec Sodium 137 (137-145) mmol/L Potassium 4.7 (3.5-5.1) mmol/L Chloride 102 (98-107) mmol/L Carbon Dioxide 23 (22-30) mmol/L Anion Gap 12 mmol/L BUN 26 H (7-17) mg/dL Creatinine 0.85 (0.52-1.04) mg/dL Est GFR (CKD-EPI)AfAm 85 (>60 ml/min/1.73 sqM) Est GFR (CKD-EPI)NonAf 74 (>60 ml/min/1.73 sqM) Glucose 123 H (74-99) mg/dL Plasma Lactic Acid Mohinder 1.4 (0.7-2.0) mmol/L Calcium 9.6 (8.4-10.2) mg/dL Total Bilirubin 0.7 (0.2-1.3) mg/dL AST 30 (14-36) U/L ALT 25 (4-34) U/L Alkaline Phosphatase 104 (38-126) U/L Total Protein 7.7 (6.3-8.2) g/dL Albumin 4.4 (3.5-5.0) g/dL Amylase 102 (30-110) U/L Lipase 449 H (23-300) U/L Urine Color Urine Appearance (Clear) Urine pH (5.0-8.0) Ur Specific [place] (1.001-1.035) Urine Protein (Negative) Urine Glucose (UA) (Negative) Urine Ketones (Negative) Urine Blood (Negative) Urine Nitrite (Negative) Urine Bilirubin (Negative) Urine Urobilinogen (<2.0) mg/dL Ur Leukocyte Esterase (Negative) Urine RBC (0-5) /hpf Urine WBC (0-5) /hpf Ur Squamous Epith Cells (0-4) /hpf Urine Mucus (None) /hpf Disposition Clinical Impression: Calculus of kidney, Renal colic on right side Disposition: HOME SELF-CARE Condition: Good Instructions (If sedation given, give patient instructions): Kidney Stones (ED) Prescriptions: Ibuprofen [Motrin] 600 mg PO Q8HR PRN #24 tab PRN Reason: Pain HYDROcodone/APAP 5-325MG [Munger 5-325] 1 tab PO Q6HR PRN #12 tab PRN Reason: Pain Ondansetron Odt [Zofran Odt] 4 mg PO Q8HR PRN #10 tab PRN Reason: Vomiting Is patient prescribed a controlled substance at d/c from ED?: No Referrals: Chuck Bradford DO [Primary Care Provider] - 1-2 days Yosef Payne MD [STAFF PHYSICIAN] - 1-2 days Time of Disposition: 08:53
[2022-01-03] MEDS ORDERED: SODIUM CHLORIDE 0.9% 1,000 ML IV ONE (08:10)
[2022-01-03 08:15] VITALS: BP 118/66; PULSE 80
--- NOTE | 2022-01-03 08:36 | XR ---
EXAMINATION TYPE: XR KUB DATE OF EXAM: 01/03/2022 8:21 AM CLINICAL HISTORY: Right-sided pain. Possible kidney stone. TECHNIQUE: Two Upright KUB images of the abdomen are obtained. COMPARISON: CT abdomen and pelvis earlier today. FINDINGS: Some paucity of bowel gas. Visualized gas seen in nondistended small and large bowel loops. Cholecystectomy clips are redemonstrated. No free air. The 6 to 7 mm distal right ureter calculus ri ght pelvis is seen better on same day CT versus x-ray. IMPRESSION: As above.
== END 2022-01-03 09:51 | disposition home or self-care (01) ==
LOC: EC 07:10
DX: N13.2 Hydronephrosis with renal and ureteral calculous obstruction (principal); Z88.1 Allergy status to other antibiotic agents
CPT/HCPCS: 36415; 80053; 82150; 83605; 83690; 85025; 85610; 85730; 81001; 74018; 74176; 99284; 96374; 96361; J2270

== ENCOUNTER 2022-01-16 12:03 | Day surgery (SDC) | payer MEDICAID ==
[2022-01-15 10:08] VITALS: BMI 38.4
--- NOTE | 2022-01-15 18:06 | P.HPIHPCON ---
History of Present Illness H&P Date: 01/15/22 This is a 51-year-old female with history of a 7 mm right-sided distal ureteral stone, she is symptomatic from her stone. Option of ureteroscopy with holmium laser, versus ESWL versus medical expulsive therapy were discussed in detail. Patient was quite symptomatic, and wanted to proceed with surgical intervention, she agreed to proceed with right-sided ureteroscopy with holmium laser. Discussed with her the risk which includes but not limited to bleeding, infection, injury to the ureter. Discussed also with her risk from anesthesia. She understood all the risk and agreed to proceed Consent for Procedure: I have explained the operation/procedure to the patient, including the risks, benefits, side effects, alternative therapies (including not receiving the proposed treatment or service), the likelihood of the patient achieving his/her goals, and potential recuperation problems for the procedure/sedation/analgesia, as well as any blood products, if indicated. I also explained to the patient the risks, benefits and side effects of the alternatives, as well as the risks related to not receiving the proposed procedure, care, treatment, or services. Past Medical History Past Medical History: Osteoarthritis (OA), Sleep Apnea/CPAP/BIPAP Additional Past Medical History / Comment(s): NO CPAP, IRREGULAR HEART BEAT DURING , HX OF JAUNDICE 1973, RESTLESS LEG SYNDROME History of Any Multi-Drug Resistant Organisms: None Reported Past Surgical History: Section, Cholecystectomy, Hernia Repair, Orthopedic Surgery, Uterine Ablation Additional Past Surgical History / Comment(s): RT KNEE ARTHROSCOPY, X2, right shoulder rotator cuff repair, R foot spur removal, colonoscopy, robotic repair incarcerated paraesophageal hiatal hernia 05-19-19, EGD Past Anesthesia/Blood Transfusion Reactions: Motion Sickness, Postoperative Nausea & Vomiting (PONV) Additional Past Anesthesia/Blood Transfusion Reaction / Comment(s): mother had no problems with prior blood transfusion,no hx blood transfusion Past Psychological History: ADD/ADHD Additional Psychological History / Comment(s): Pt resides with her spouse. She is independent. Smoking Status: Never smoker Past Alcohol Use History: None Reported Past Drug Use History: None Reported - Past Family History Father Family Medical History: Musculoskeletal Disorder, Neurologic Disorder Additional Family Medical History / Comment(s): Father of Brenna Gherigs disease in his 60's Mother Family Medical History: Diabetes Mellitus, Hypertension Additional Family Medical History / Comment(s): Mother of Mylodysplasia at the age of 80 yrs. Medications and Allergies Home Medications Medication Instructions Recorded Confirmed Type Cilostazol [Pletal] 100 mg PO HS 03/16/14 01/15/22 History Zolpidem Tartrate [Zolpidem 12.5 mg PO HS 04/21/16 01/15/22 History Tartrate ER] Atorvastatin [Lipitor] 20 mg PO HS #30 tab 04/24/16 01/15/22 Rx Calcium/Magnesium/Zinc 1 tab PO HS 03/28/20 01/15/22 History [Ulueypc-Lplqhpyza-Eibu Tablet] Multivitamins, Thera [Multivitamin 1 tab PO HS 03/28/20 01/15/22 History (formulary)] Ascorbic Acid [Vitamin C] 500 mg PO HS 01/03/22 01/15/22 History Cholecalciferol [Vitamin D3 (25 25 mcg PO HS 01/03/22 01/15/22 History Mcg = 1000 Iu)] Cider Vinegar [Apple Cider Vinegar] 300 mg PO HS 01/03/22 01/15/22 History HYDROcodone/APAP 5-325MG [[place] 1 tab PO Q6HR PRN #12 tab 01/03/22 01/15/22 Rx 5-325] Ibuprofen [Motrin] 600 mg PO Q8HR PRN #24 tab 01/03/22 01/15/22 Rx Ondansetron Odt [Zofran Odt] 4 mg PO Q8HR PRN #10 tab 01/03/22 01/15/22 Rx Allergies Allergy/AdvReac Type Severity Reaction Status Date / Time quinine Allergy Severe Rash/Hives/lupus Verified 01/15/22 09:58 like symptoms Surgical - Exam - General no distress, severe pain - Eyes normal ocular movement, no pale - ENT normal nares, normal mucosa - Respiratory normal expansion, normal respiratory effort - Abdomen Abdomen: soft, non tender, no distended - Psychiatric oriented to time, oriented to person, oriented to place Assessment and Plan Assessment: OR for right-sided ureteroscopy with holmium laser lithotripsy, stone basketing and stent insertion
--- NOTE | 2022-01-16 12:27 | XR ---
EXAMINATION TYPE: XR KUB DATE OF EXAM: 01/16/2022 Comparison: 01/03/2022 Clinical History: 61-year-old female PREOP KUB FOR LITHOTRIPSY 01/16/21 Findings: 6 mm calcification right side of the pelvis. Cholecystectomy clips. Nonobstructive bowel gas pattern. Scattered mild stool. Impression: Unchanged 6 mm distal right ureteral calculus.
[2022-01-16 13:10] VITALS: TEMP 96.8
[2022-01-16] MEDS ORDERED: LACTATED RINGERS 1,000 ML IV ONE ×2 (13:17→14:25)
[2022-01-16] MEDS ORDERED: ONDANSETRON 4 MG/2 ML VIAL IVP ONE (13:23)
[2022-01-16] MEDS ORDERED: DEXAMETHASONE SOD PHOSPHATE 4 MG/ML 1 ML VIAL IV ONE (13:23)
[2022-01-16] MEDS ORDERED: PROPOFOL 10 MG/ML 20 ML VIAL IV ONE (13:40)
[2022-01-16] MEDS ORDERED: LIDOCAINE 2% INJ 20 MG/ML (2 ML VIAL) ONE (13:40)
[2022-01-16] MEDS ORDERED: MIDAZOLAM 2 MG/2 ML VIAL ONE (13:40)
[2022-01-16] MEDS ORDERED: fentaNYL (PF) 50 MCG/ML 2 ML AMP ONE (13:40)
[2022-01-16] MEDS ORDERED: IOPAMIDOL-370 50ML BTL MISCELLANE ONE (14:08)
[2022-01-16] MEDS ORDERED: KETOROLAC 15 MG/ML 1 ML VIAL IVP ONE (14:59)
[2022-01-16 15:53] VITALS: RESP 20
[2022-01-16 16:03] VITALS: BP 121/80; PULSE 68
--- NOTE | 2022-01-16 20:47 | FL ---
EXAMINATION TYPE: FL urography retrograde DATE OF EXAM: 01/16/2022 FLUOROSCOPY Fluoroscopy time of 7.1 seconds was used during urologic procedure for right ureteral stone. 2 image /s document/s the procedure.
--- NOTE | 2022-01-19 10:57 | P.OP ---
Date of Procedure: 01/16/22 Preoperative Diagnosis: Right ureteral stone Postoperative Diagnosis: Same Procedure(s) Performed: Cystoscopy, right ureteroscopy, retrograde pyelogram holmium laser lithotripsy, stone basketing and stent insertion Implants: 6-Gabonese by 26 cm stent in the right ureter Anesthesia: THAO Surgeon: Yosef Payne Estimated Blood Loss (ml): 5 Indications for Procedure: This is a 51-year-old female with history of a 7 mm right-sided distal ureteral stone, she is symptomatic from her stone. Option of ureteroscopy with holmium laser, versus ESWL versus medical expulsive therapy were discussed in detail. Patient was quite symptomatic, and wanted to proceed with surgical intervention, she agreed to proceed with right-sided ureteroscopy with holmium laser. Discussed with her the risk which includes but not limited to bleeding, infection, injury to the ureter. Discussed also with her risk from anesthesia. She understood all the risk and agreed to proceed Operative Findings: Right-sided distal stone Description of Procedure: Patient brought to the operating room, general anesthesia was induced. He was prepped and draped in sterile fashion and placed in a dorsal lithotomy position. A cystoscopy fitted with a 21-Gabonese sheath was inserted per urethra, cystoscopy was performed which showed no abnormality within the bladder. Attention was then carried to the right ureteral orifice, a semirigid ureteroscope was inserted through the urethra and advanced up the right ureteral orifice. A stone was encountered in the distal ureter. Using the holmium laser the stone was fragmented into small fragments, sizable fragments were removed and sent for analysis. At this time the ureteroscope was advanced past the stone and into the proximal ureter which showed no additional stones. Retrograde pyelogram was performed through the ureteroscope which showed no additional filling defect within the kidney. Pullback ureteroscopy was performed showed no injury to the ureter or any sizable fragments. As the ureteroscope was withdrawn and a sensor wire was advanced through. A ureteral stent was passed over the wire, the proximal curl was visualized on fluoroscopy and the distal curl was visualized using the cystoscope. The bladder was emptied and of the case. Patient thought the procedure well was taken to recovery in stable condition LEELEE DOWNS Report: Procedure Acuity: Stone Size and Location: 7 mm right distal Ureteral Dilation: No Ureteral Access Sheath Used: No Stone Sent for Analysis: Yes All Stones/Fragments Were Removed with a Basket: Yes Complications: None Preoperative Antibiotics Given: Yes Stent Placed: Yes If Stent Placed, Was String Left Attached: No If Stent Placed, When is it to be Removed: 1-2 weeks Discharge Medications:
== END 2022-01-16 16:25 | disposition home or self-care (01) ==
LOC: OR 12:03
PROVIDERS: ATTEND Urology
DX: N20.1 Calculus of ureter (principal); M19.90 Unspecified osteoarthritis, unspecified site; G47.30 Sleep apnea, unspecified; G25.81 Restless legs syndrome; F90.9 Attention-deficit hyperactivity disorder, unspecified type; Z79.899 Other long term (current) drug therapy; Z88.8 Allergy status to other drugs, medicaments and biological substances; Z98.891 History of uterine scar from previous surgery; Z90.49 Acquired absence of other specified parts of digestive tract; Z98.890 Other specified postprocedural states; Z82.0 Family history of epilepsy and other diseases of the nervous system; Z83.3 Family history of diabetes mellitus; Z82.49 Family history of ischemic heart disease and other diseases of the circulatory system
CPT/HCPCS: 82365; 74420; 74018; 52356; C1769; J2250; J1100; J0690; J2405; J3010; J1885; J2704; Q9967; J2001

== ENCOUNTER → 2022-02-13 | Outpatient (CLI) | payer MEDICAID ==
--- NOTE | 2022-02-13 16:35 | US ---
EXAMINATION TYPE: US kidneys/renal and bladder DATE OF EXAM: 02/13/2022 COMPARISON: CT 01/03/2022 CLINICAL HISTORY: N20.0 CALCULUS OF KIDNEYS,N20.1 CALCULUS OF URETER. History of kidney stones EXAM MEASUREMENTS: Right Kidney: 12.8 x 5.1 x 5.4 cm Left Kidney: 13.7 x 5.9 x 6.0 cm Right Kidney: multiple cystic areas mid pole with largest measuring 2.5cm - possible parapelvic cysts vs. possible hydronephrosis Left Kidney: multiple cystic areas mid pole with largest measuring 2.8cm - possible parapelvic cysts vs. possible hydronephrosis Bladder: wnl Bilateral Jets seen: yes IMPRESSION: 1. Bilateral renal cysts. 2. Suggestion of mild bilateral hydronephrosis. Peripelvic cysts are within the differential.
== END | disposition home or self-care (01) ==
LOC: RADUSWWP 14:56
PROVIDERS: ATTEND Urology
DX: N28.1 Cyst of kidney, acquired (principal)
CPT/HCPCS: 76770

== ENCOUNTER 2022-12-10 20:18 | Observation (INO) | payer MEDICAID ==
--- NOTE | 2022-12-10 21:00 | ED ---
Chest Pain HPI - General Chief Complaint: Chest Pain Stated Complaint: Chest Pain Time Seen by Provider: 12/10/22 20:46 Source: patient, EMS Mode of arrival: EMS Limitations: no limitations - History of Present Illness Initial Comments: This patient is a 62-year-old woman who presents to have evaluation of substernal chest pain. The patient states that she had been sitting in restorationism tonight in fact she was having some soup, when the pain started. She states that the pain is accompanied by difficulty swallowing. She tried to drink some water thinking something was stuck in her esophagus and she was not able to swallow for a bit. She has subsequently been able to drink water. She states that the pain has resolved and recurred 8-10 times now. She notes that it radiates to the back. She has not had any accompanying symptoms, no fever or chills, cough, diaphoresis, dyspnea, nausea or vomiting. MD Complaint: chest pain Onset/Timin -: hour(s) Onset: during rest Pain Location: substernal Pain Radiation: back Severity: severe Quality: sharp Consistency: constant Improves With: nothing Worsens With: nothing - Related Data Home Medications Medication Instructions Recorded Confirmed cilostazoL [Pletal] 100 mg PO HS 03/16/14 01/15/22 Zolpidem Tartrate [Zolpidem 12.5 mg PO HS 04/21/16 01/16/22 Tartrate ER] Calcium/Magnesium/Zinc 1 tab PO HS 03/28/20 01/15/22 [Jxzeesq-Iofvkibbu-Pvzl Tablet] Multivitamins, Thera [Multivitamin 1 tab PO HS 03/28/20 01/16/22 (formulary)] Ascorbic Acid [Vitamin C] 500 mg PO HS 01/03/22 01/15/22 Cholecalciferol [Vitamin D3 (25 25 mcg PO HS 01/03/22 01/15/22 Mcg = 1000 Iu)] Cider Vinegar [Apple Cider Vinegar] 300 mg PO HS 01/03/22 01/15/22 Previous Rx's Medication Instructions Recorded Atorvastatin [Lipitor] 20 mg PO HS #30 tab 04/24/16 HYDROcodone/APAP 5-325MG [[place] 1 tab PO Q6HR PRN #12 tab 01/03/22 5-325] Ibuprofen [Motrin] 600 mg PO Q8HR PRN #24 tab 01/03/22 Ondansetron Odt [Zofran Odt] 4 mg PO Q8HR PRN #10 tab 01/03/22 Ketorolac [Toradol] 10 mg PO Q6HR PRN #10 tab 01/16/22 Tamsulosin [Flomax] 0.4 mg PO DAILY #10 cap 01/16/22 Allergies Allergy/AdvReac Type Severity Reaction Status Date / Time quinine Allergy Severe Rash/Hives/lupus Verified 12/10/22 20:41 like symptoms Review of Systems ROS Statement: Those systems with pertinent positive or pertinent negative responses have been documented in the HPI. ROS Other: All systems not noted in ROS Statement are negative. Constitutional: Denies: fever, chills Respiratory: Denies: cough, dyspnea Cardiovascular: Reports: chest pain. Denies: palpitations, orthopnea, edema, syncope Gastrointestinal: Denies: abdominal pain, nausea, vomiting Genitourinary: Denies: dysuria, hematuria Musculoskeletal: Denies: back pain Skin: Denies: rash Neurological: Denies: headache, weakness, numbness EKG Findings - EKG Results: EKG: interpreted by ERMD, sinus rhythm (Rate 60 bpm), normal axis, normal QRS, normal ST/T Past Medical History Past Medical History: Osteoarthritis (OA), Sleep Apnea/CPAP/BIPAP Additional Past Medical History / Comment(s): NO CPAP, IRREGULAR HEART BEAT DURING , HX OF JAUNDICE 1973, RESTLESS LEG SYNDROME History of Any Multi-Drug Resistant Organisms: None Reported Past Surgical History: Section, Cholecystectomy, Hernia Repair, Orthopedic Surgery, Uterine Ablation Additional Past Surgical History / Comment(s): RT KNEE ARTHROSCOPY, X2, right shoulder rotator cuff repair, R foot spur removal, colonoscopy, robotic repair incarcerated paraesophageal hiatal hernia 05-19-19, EGD Past Anesthesia/Blood Transfusion Reactions: Motion Sickness, Postoperative Nausea & Vomiting (PONV) Additional Past Anesthesia/Blood Transfusion Reaction / Comment(s): mother had no problems with prior blood transfusion,no hx blood transfusion Past Psychological History: ADD/ADHD Smoking Status: Never smoker Past Alcohol Use History: None Reported Past Drug Use History: None Reported - Past Family History Father Family Medical History: Musculoskeletal Disorder, Neurologic Disorder Additional Family Medical History / Comment(s): Father of Brenna Gherigs disease in his 60's Mother Family Medical History: Diabetes Mellitus, Hypertension Additional Family Medical History / Comment(s): Mother of Mylodysplasia at the age of 80 yrs. General Exam Limitations: no limitations General appearance: alert, in no apparent distress Head exam: Present: atraumatic, normocephalic Eye exam: Present: normal appearance. Absent: scleral icterus, conjunctival injection ENT exam: Present: normal oropharynx Neck exam: Present: normal inspection Respiratory exam: Present: normal lung sounds bilaterally. Absent: respiratory distress, wheezes, rales, rhonchi, stridor Cardiovascular Exam: Present: regular rate, normal rhythm, normal heart sounds. Absent: systolic murmur, diastolic murmur, rubs, gallop GI/Abdominal exam: Present: soft. Absent: distended, tenderness, guarding, r ebound, rigid, mass Extremities exam: Present: normal inspection, normal capillary refill. Absent: pedal edema, calf tenderness Back exam: Present: normal inspection. Absent: CVA tenderness (R), CVA tenderness (L) Neurological exam: Present: alert Skin exam: Present: warm, dry, intact, normal color. Absent: rash Course Vital Signs 12/10/22 12/10/22 12/10/22 20:37 20:42 21:53 Temperature 98.0 F Pulse Rate 66 62 Pulse Rate [ 66 Signals Intelligence Analyst ] Respiratory 18 17 Rate Blood Pressure 185/93 148/80 O2 Sat by Pulse 96 97 Oximetry 12/10/22 23:10 Temperature Pulse Rate 64 Pulse Rate [ Signals Intelligence Analyst ] Respiratory 17 Rate Blood Pressure 163/82 O2 Sat by Pulse 97 Oximetry Chest Pain [facility] Patient is 62-year-old woman presenting with acute onset of substernal chest pain radiating to the back. The initial workup here is negative. Given risk factors will admit for serial cardiac enzymes, telemetry monitoring, cardiology consultation. Disposition Clinical Impression: Chest pain Disposition: ADMITTED IP TO THIS [facility] Condition: Good Instructions (If sedation given, give patient instructions): Chest Pain (ED) Is patient prescribed a controlled substance at d/c from ED?: No Referrals: Chuck Bradford DO [Primary Care Provider] - 1-2 days
[2022-12-10 21:19] LABS: Basophils % (A) 1 %; Eosinophils # (A) 0.3 k/uL (0-0.7); Eosinophils % (A) 5 %; HGB 13.3 gm/dL (11.4-16.0); Lymphocytes # (A) 2.2 k/uL (1.0-4.8); Lymphocytes % (A) 36 %; MCH 30.1 pg (25.0-35.0); MCHC 35.1 g/dL (31.0-37.0); MCV 85.8 fL (80.0-100.0); Mean Platelet Volume 6.9; Monocytes # (A) 0.5 k/uL (0-1.0); Monocytes % (A) 8 %; Neutrophils # (A) 2.9 k/uL (1.3-7.7); Neutrophils % (A) 47 %; Platelet Count 319 k/uL (150-450); RBC 4.43 m/uL (3.80-5.40); RDW 12.9 % (11.5-15.5); WBC 6.1 k/uL (3.8-10.6)
--- NOTE | 2022-12-10 21:24 | XR ---
EXAMINATION TYPE: XR chest 2V DATE OF EXAM: 12/10/2022 9:08 PM COMPARISON: Chest radiographs from 03/22/2017 TECHNIQUE: XR chest 2V Frontal and lateral views of the chest. CLINICAL INDICATION:Female, 62 years old with history of Chest Pain; FINDINGS: Lungs/Pleura: There is no evidence of pleural effusion, focal consolidation, or pneumothorax. Pulmonary vascularity: Unremarkable. Heart/mediastinum: Cardiomediastinal silhouette is unremarkable. Musculoskeletal: No acute osseous pathology. IMPRESSION: No acute cardiopulmonary disease/process.
[2022-12-10 21:36] LABS: ALT 27 U/L (4-34); AST 30 U/L (14-36); African American GFR (CKD) >90 (>60 ml/min/1.73 sqM); Albumin 3.8 g/dL (3.5-5.0); Alkaline Phosphatase 89 U/L (38-126); Anion Gap 7 mmol/L; Blood Urea Nitrogen 20 mg/dL (7-17); Carbon Dioxide 23 mmol/L (22-30); Chloride 106 mmol/L (98-107); Glucose 91 mg/dL (74-99); Magnesium 1.7 mg/dL (1.6-2.3); Non-African American GFR(CKD) >90 (>60 ml/min/1.73 sqM); Potassium 4.2 mmol/L (3.5-5.1); Sodium 136 mmol/L (137-145); Total Bilirubin 0.4 mg/dL (0.2-1.3); Total Protein 6.4 g/dL (6.3-8.2)
[2022-12-10 21:44] LABS: INR 0.9 (<1.2); Prothrombin Time 10.1 sec (9.0-12.0)
[2022-12-10] MEDS ORDERED: NITROGLYCERIN SL TABS 0.4 MG TAB SUBLINGUAL PRN (23:15)
[2022-12-10] MEDS ORDERED: SODIUM CHLORIDE 0.9% 1,000 ML IV SCH (23:15)
--- NOTE | 2022-12-10 23:15 | CT ---
EXAMINATION TYPE: CT chest angio for PE CT DLP: 903.4 mGycm, Automated exposure control for dose reduction was used. DATE OF EXAM: 12/10/2022 10:56 PM COMPARISON: Chest radiograph 12/10/2022. CT 01/03/2022. CLINICAL INDICATION:Female, 62 years old with history of chest pain, possible PE; Chest pain, elevate d D-dimer TECHNIQUE/CONTRAST: CTA scan of the thorax is performed with IV Contrast, patient injected with 100ml mL of Isovue 300, p ulmonary embolism protocol. MIP images are created and reviewed these are created on a separate work station.. FINDINGS: Pulmonary Artery: There is no evidence for a filling defect within the pulmonary vasculature to sugge st acute pulmonary embolism. The pulmonary artery is of normal size. Lungs/Pleura: No evidence of focal consolidation, pleural effusion or pneumothorax. Right upper lung nodules measuring 5 and 4 mm series 401 image 43. Scattered peripheral reticulation most pronounced p osteriorly likely dependent subsegmental atelectasis. Airway: Large airways are patent. Heart: Heart is within normal limits for size. Vasculature: No evidence of aortic aneurysm. Mediastinum: No gross evidence of adenopathy. Musculoskeletal: No acute osseous abnormalities Soft Tissues: Unremarkable. Lower neck: No significant findings. Upper Abdomen: Perirenal cysts on the bilateral kidneys partially visualized. Few scattered colonic d iverticula. The gallbladder surgically absent. Small hiatal hernia. Nonspecific Carol mesentery stabl e back to prior. IMPRESSION: 1. No evidence of pulmonary embolism. 2. Pulmonary nodules measuring less than 6 mm. Follow-up imaging in 12 months if the patient has risk factors. 3. Colonic diverticulosis. 4. Small hiatal hernia.
[2022-12-11] MEDS ORDERED: ASPIRIN 325 MG TAB PO SCH (09:00)
[2022-12-11 09:51] LABS: Chol/HDL Ratio 2.42 Ratio; LDL Cholesterol,Calculated 86.6 mg/dL (0.0-131.0)
--- NOTE | 2022-12-11 11:02 | P.CRDCN ---
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 We have been asked to evaluate the patient for chest pain. She has a past medical history of hyperlipidemia, obstructive sleep apnea, osteoarthritis, restless leg. Patient states that she was eating dinner yesterday ended up swallowing a piece of chicken and then developed chest pain. She states she has a history of hiatal hernia. She states the pain was very severe and went over chest or to her back was more so located in the right upper quadrant and epigastric area. She states it was extremely severe and lasted for about 5 minutes. Patient is seen today in the emergency center waiting for a bed on the observation unit. EKG sinus rhythm with poor R-wave progression Chest x-ray: No acute findings CT of the chest no PE CBC within normal limits. D-dimer 0.66. Troponin negative 3. CMP within normal limits. BUN 20 and creatinine 0.62. Home cardiac medications: Atorvastatin 20 g at bedtime, Pletal 100 mg at bedtime Review Of Systems: At the time of my evaluation: Constitutional: No fever, no chills. No weakness, fatigue or lethargy. EENT: No headache. No dizziness. Lungs: No shortness of breath, cough, no sputum production. No wheezing. Cardiovascular: No chest pain, no lower extremity edema. No palpitations. No paroxysmal nocturnal dyspnea. No orthopnea. No lightheadedness or dizziness. No syncopal episodes. Abdominal: No abdominal pain. No nausea, vomiting. No diarrhea. No constipation. No bloody or tarry stools. Genitourinary: No dysuria.. No urinary retention. Musculoskeletal: No myalgias. No muscle weakness, no frequent falls. No back pain. No neck pain. Integumentary: No wounds. No rash. No unusual bruising. Neurologic: No aphasia. No facial droop. No change in mentation. No head injury. No headache. Physical examination: Gen: This is a 62-year-old female. She is resting on the ER stretcher and appears to be comfortable and in no acute distress. VS: reviewed HEENT: Head is atraumatic, normocephalic. Pupils equal, round. Sclerae is anicteric. NECK: Supple. No JVD. No carotid bruit. LUNGS: Clear to auscultation. No wheezes or rhonchi. No intercostal retractions. HEART: Regular rate and rhythm. No murmur. ABDOMEN: Soft No tenderness. EXTREMITIES: No pedal edema. No calf tenderness. NEUROLOGICAL: Patient is awake, alert and oriented x3. Assessment: Chest pain noncardiac, acute coronary syndrome ruled out Hyperlipidemia Plan: No cardiac workup is indicated at this time Recommend consult with Dr. Mclaughlin re swallowing difficulty Further recommendations to follow based upon clinical course Thank you kindly for this consultation. Nurse practitioner note has been reviewed, I agree with documented findings and plan of care. Patient was seen and examined. Past Medical History Past Medical History: Osteoarthritis (OA), Sleep Apnea/CPAP/BIPAP Additional Past Medical History / Comment(s): NO CPAP, IRREGULAR HEART BEAT DURING , HX OF JAUNDICE 1973, RESTLESS LEG SYNDROME History of Any Multi-Drug Resistant Organisms: None Reported Past Surgical History: Section, Cholecystectomy, Hernia Repair, Orthopedic Surgery, Uterine Ablation Additional Past Surgical History / Comment(s): RT KNEE ARTHROSCOPY, X2, right shoulder rotator cuff repair, R foot spur removal, colonoscopy, robotic repair incarcerated paraesophageal hiatal hernia 05-19-19, EGD Past Anesthesia/Blood Transfusion Reactions: Motion Sickness, Postoperative Nausea & Vomiting (PONV) Additional Past Anesthesia/Blood Transfusion Reaction / Comment(s): mother had no problems with prior blood transfusion,no hx blood transfusion Past Psychological History: ADD/ADHD Smoking Status: Never smoker Past Alcohol Use History: None Reported Past Drug Use History: None Reported - Past Family History Father Family Medical History: Musculoskeletal Disorder, Neurologic Disorder Additional Family Medical History / Comment(s): Father of Brenna Gherigs disease in his 60's Mother Family Medical History: Diabetes Mellitus, Hypertension Additional Family Medical History / Comment(s): Mother of Mylodysplasia at the age of 80 yrs. Medications and Allergies Home Medications Medication Instructions Recorded Confirmed Type cilostazoL [Pletal] 100 mg PO HS 03/16/14 12/11/22 History Zolpidem Tartrate [Zolpidem 12.5 mg PO HS PRN 04/21/16 12/11/22 History Tartrate ER] Atorvastatin [Lipitor] 20 mg PO HS #30 tab 08/18/16 04/06/23 Rx Multivitamins, Thera [Multivitamin 1 tab PO HS 03/28/20 12/11/22 History (formulary)] Cyanocobalamin (Vitamin B-12) 1,000 mcg PO HS 12/11/22 12/11/22 History [Vitamin B-12] Dextroamphetamine/Amphetamine 20 mg PO DAILY PRN 12/11/22 12/11/22 History [Adderall] Gabapentin [Neurontin] 100 mg PO BID PRN 12/11/22 12/11/22 History Glucosamine/Chondro Rain A [Cosamin 2 tab PO HS 12/11/22 12/11/22 History Ds Tablet] Ibuprofen [Motrin Ib] 800 mg PO Q8H PRN 12/11/22 12/11/22 History diphenhydrAMINE HCL [Benadryl] 25 mg PO HS 12/11/22 12/11/22 History Allergies Allergy/AdvReac Type Severity Reaction Status Date / Time quinine Allergy Severe Rash/Hives/lupus Verified 12/11/22 07:10 like symptoms Physical Exam Vitals: Vital Signs Temp Pulse Pulse Resp BP Pulse Ox 12/11/22 07:42 97.9 F 62 16 141/82 98 12/11/22 05:28 70 18 144/79 96 12/11/22 02:53 72 18 131/76 96 12/10/22 23:52 62 17 162/79 97 12/10/22 23:10 64 17 163/82 97 12/10/22 21:53 62 17 148/80 97 12/10/22 20:42 66 12/10/22 20:37 98.0 F 66 18 185/93 96 Intake and Output 12/10/22 12/11/22 12/11/22 22:59 06:59 14:59 Other: Weight 113.398 kg Results 12/10/22 20:55 12/10/22 20:55 Cardiac Enzymes 12/10/22 12/10/22 12/11/22 Range/Units 20:55 20:55 01:11 AST 30 (14-36) U/L Troponin I <0.012 <0.012 (0.000-0.034) ng/mL 12/11/22 Range/Units 02:43 AST (14-36) U/L Troponin I <0.012 (0.000-0.034) ng/mL Coagulation 12/10/22 Range/Units 20:55 PT 10.1 (9.0-12.0) sec APTT 23.0 (22.0-30.0) sec CBC 12/10/22 Range/Units 20:55 WBC 6.1 (3.8-10.6) k/uL RBC 4.43 (3.80-5.40) m/uL Hgb 13.3 (11.4-16.0) gm/dL Hct 38.0 (34.0-46.0) % Plt Count 319 (150-450) k/uL Comprehensive Metabolic Panel 12/10/22 Range/Units 20:55 Sodium 136 L (137-145) mmol/L Potassium 4.2 (3.5-5.1) mmol/L Chloride 106 (98-107) mmol/L Carbon Dioxide 23 (22-30) mmol/L BUN 20 H (7-17) mg/dL Creatinine 0.62 (0.52-1.04) mg/dL Glucose 91 (74-99) mg/dL Calcium 9.0 (8.4-10.2) mg/dL AST 30 (14-36) U/L ALT 27 (4-34) U/L Alkaline Phosphatase 89 (38-126) U/L Total Protein 6.4 (6.3-8.2) g/dL Albumin 3.8 (3.5-5.0) g/dL Current Medications Generic Name Dose Route Start Last Admin Trade Name Freq PRN Reason Stop Dose Admin Aspirin 325 mg 12/11/22 09:00 12/11/22 08:07 Aspirin 325 Mg Tab PO 325 mg DAILY ADITI Administration Sodium Chloride 1,000 mls @ 20 mls/hr 12/10/22 23:15 12/10/22 23:49 Saline 0.9% IV 20 mls/hr .Q24H ADITI Administration Nitroglycerin 0.4 mg 12/10/22 23:15 Nitroglycerin Sl Tabs 0.4 Mg Tab SUBLINGUAL Q5M PRN Chest Pain Intake and Output 12/10/22 12/11/22 12/11/22 22:59 06:59 14:59 Other: Weight 113.398 kg 12/10/22 20:55 12/10/22 20:55
[2022-12-11 12:20] VITALS: PULSE 58
[2022-12-11 12:21] VITALS: BP 143/85; RESP 18; TEMP 97.8
[2022-12-11] MEDS ORDERED: NON FORMULARY DRUG (Dextroamphetamine/Amphetamine [Adderall] 20 MG Tablet) PO PRN (13:11)
[2022-12-11] MEDS ORDERED: GABAPENTIN 100 MG CAP PO PRN (13:11)
[2022-12-11] MEDS ORDERED: ZOLPIDEM 5 MG TAB PO PRN (13:11)
--- NOTE | 2022-12-11 13:14 | P.HPIM ---
History of Present Illness H&P Date: 12/11/22 Chief Complaint: Chest pain History and Physical and Discharge Summary: This is a pleasant 62-year-old female with past medical history of hiatal hernia -repair with Dr. Mclaughlin, gastroesophageal reflux disease, morbid obesity, obstructive sleep apnea, hyperlipidemia, osteoarthritis, restless leg syndrome, neuropathy and multiple other medical issues presented to the ER with chest pain. States yesterday she was at [employer], for Passover dinner, had consumed chicken and some soup, developed sharp midepigastric, midsternal chest pain radiating through to back as well as right upper quadrant. Reports it lasted for at least 3-4 hours, resolved after arrival to the ER she received to drink of water. Denies fever or chills, congestion or cough. Denies lightheadedness dizziness or focal deficits. Denies shortness of breath. Denies nausea, vo miting or diarrhea. denies syncope. EKG reported sinus rhythm with first-degree AV block, troponins negative 3, chest x-ray reported no acute cardiopulmonary disease/process. D-dimer 0.66, chest CTA reported no evidence of PE, pulmonary nodules measuring less than 6 mm, follow-up imaging in 12 months recommended, colonic diverticulosis, small hiatal hernia. Afebrile, hematology, CMP unremarkable. Review of Systems ROS Statement: Those systems with pertinent positive or pertinent negative responses have been documented in the HPI. ROS Other: All systems not noted in ROS Statement are negative. Past Medical History Past Medical History: Osteoarthritis (OA), Sleep Apnea/CPAP/BIPAP Additional Past Medical History / Comment(s): NO CPAP, IRREGULAR HEART BEAT DURING , HX OF JAUNDICE 1973, RESTLESS LEG SYNDROME History of Any Multi-Drug Resistant Organisms: None Reported Past Surgical History: Section, Cholecystectomy, Hernia Repair, Orthopedic Surgery, Uterine Ablation Additional Past Surgical History / Comment(s): RT KNEE ARTHROSCOPY, X2, right shoulder rotator cuff repair, R foot spur removal, colonoscopy, robotic repair incarcerated paraesophageal hiatal hernia 05-19-19, EGD Past Anesthesia/Blood Transfusion Reactions: Motion Sickness, Postoperative Nausea & Vomiting (PONV) Additional Past Anesthesia/Blood Transfusion Reaction / Comment(s): mother had no problems with prior blood transfusion,no hx blood transfusion Past Psychological History: ADD/ADHD Additional Psychological History / Comment(s): Pt resides with her spouse. She is independent. Smoking Status: Never smoker Past Alcohol Use History: None Reported Past Drug Use History: None Reported - Past Family History Father Family Medical History: Musculoskeletal Disorder, Neurologic Disorder Additional Family Medical History / Comment(s): Father of Brenna Gherigs disease in his 60's Mother Family Medical History: Diabetes Mellitus, Hypertension Additional Family Medical History / Comment(s): Mother of Mylodysplasia at the age of 80 yrs. Medications and Allergies Home Medications Medication Instructions Recorded Confirmed Type cilostazoL [Pletal] 100 mg PO HS 03/16/14 12/11/22 History Zolpidem Tartrate [Zolpidem 12.5 mg PO HS PRN 04/21/16 12/11/22 History Tartrate ER] Atorvastatin [Lipitor] 20 mg PO HS #30 tab 04/24/16 12/11/22 Rx Multivitamins, Thera [Multivitamin 1 tab PO HS 03/28/20 12/11/22 History (formulary)] Cyanocobalamin (Vitamin B-12) 1,000 mcg PO HS 12/11/22 12/11/22 History [Vitamin B-12] Dextroamphetamine/Amphetamine 20 mg PO DAILY PRN 12/11/22 12/11/22 History [Adderall] Gabapentin [Neurontin] 100 mg PO BID PRN 12/11/22 12/11/22 History Glucosamine/Chondro Rain A [Cosamin 2 tab PO HS 12/11/22 12/11/22 History Ds Tablet] Ibuprofen [Motrin Ib] 800 mg PO Q8H PRN 12/11/22 12/11/22 History Pantoprazole Sodium [Protonix] 40 mg PO DAILY #30 tab 12/11/22 Rx diphenhydrAMINE HCL [Benadryl] 25 mg PO HS 12/11/22 12/11/22 History Allergies Allergy/AdvReac Type Severity Reaction Status Date / Time quinine Allergy Severe Rash/Hives/lupus Verified 12/11/22 07:10 like symptoms Physical Exam Vitals: Vital Signs Temp Pulse Pulse Resp BP BP Pulse Ox 12/11/22 12:20 97.8 F 58 L 18 143/85 98 12/11/22 12:00 58 L 12/11/22 11:20 59 L 16 141/73 97 12/11/22 07:42 97.9 F 62 16 141/82 98 12/11/22 05:28 70 18 144/79 96 12/11/22 02:53 72 18 131/76 96 12/10/22 23:52 62 17 162/79 97 12/10/22 23:10 64 17 163/82 97 12/10/22 21:53 62 17 148/80 97 12/10/22 20:42 66 12/10/22 20:37 98.0 F 66 18 185/93 96 Intake and Output 12/10/22 12/11/22 12/11/22 22:59 06:59 14:59 Other: Weight 113.398 kg 113.398 kg PHYSICAL EXAM: VITAL SIGNS: As above GENERAL: Sitting up on stretcher, no acute distress, HEENT: Normocephalic, atraumatic, sclera not icteric. Conjunctivae normal. eyes normal. NECK: Supple, No JVD. No thyroid enlargement. No LNs CARDIOVASCULAR: S1, S2 regular. Mild systolic murmur RESPIRATION: Unlabored, clear air entry, bilateral. Breath sounds diminished in the bases. No rhonchi or crackles. No bronchial breathing. ABDOMEN: Soft, nontender . No guarding. no masses palpable.+BS. LEGS: No edema. no swelling PSYCHIATRY: Alert and oriented 3, mood and affect normal. NERVOUS SYSTEM: Cranial N 2-12 grossly normal. No focal deficits. Strength and sensation grossly intact. Skin: Warm and dry, no rash Results CBC & Chem 7: 12/10/22 20:55 12/10/22 20:55 Labs: Abnormal Lab Results - Last 24 Hours (Table) 12/10/22 12/10/22 12/10/22 Range/Units 20:55 20:55 20:55 D-Dimer 0.66 H (<0.60) mg/L FEU Sodium 136 L (137-145) mmol/L BUN 20 H (7-17) mg/dL HDL Cholesterol 70.70 H (40.00-60.00) mg/dL Assessment and Plan Assessment: Chest pain,ACS ruled out. Possible swallowing spasm Hiatal hernia History of hernia repair with Dr. Mclaughlin Hyperlipidemia Pulmonary nodules measuring less than 6 mm, incidental finding on CTA, follow-up imaging in 12 months recommended. Plan: Continue on current medication regime ,monitoring and symptomatic treatment. Evaluated by cardiology, no further cardiac workup recommended at this time. Consult for Dr. Mclaughlin in place regarding swallowing difficulty/spasm. Patient will be discharged home today in a stable condition with guarded prognosis pending final DC recommendations and clearance per Dr. Mclaughlin. Discharge Medication List cilostazoL [Pletal] 100 mg PO HS 03/16/14 [History] Zolpidem Tartrate [Zolpidem Tartrate ER] 12.5 mg PO HS PRN 04/21/16 [History] Atorvastatin [Lipitor] 20 mg PO HS #30 tab 04/24/16 [Rx] Multivitamins, Thera [Multivitamin (formulary)] 1 tab PO HS 03/28/20 [History] Cyanocobalamin (Vitamin B-12) [Vitamin B-12] 1,000 mcg PO HS 12/11/22 [History] Dextroamphetamine/Amphetamine [Adderall] 20 mg PO DAILY PRN 12/11/22 [History] Gabapentin [Neurontin] 100 mg PO BID PRN 12/11/22 [History] Glucosamine/Chondro Rain A [Cosamin Ds Tablet] 2 tab PO HS 12/11/22 [History] Ibuprofen [Motrin Ib] 800 mg PO Q8H PRN 12/11/22 [History] Pantoprazole Sodium [Protonix] 40 mg PO DAILY #30 tab 12/11/22 [Rx] diphenhydrAMINE HCL [Benadryl] 25 mg PO HS 12/11/22 [History] The impression and plan of care has been dictated as directed. : I performed a history and examination of this patient, discussed the same with the dictator. I agree with the dictator's note ,documented as a scribe. Any additional findings or plans will be noted.
[2022-12-11] MEDS ORDERED: PANTOPRAZOLE 40 MG/10 ML VIAL IVP SCH (13:15)
--- NOTE | 2022-12-11 16:26 | P.GSCN ---
History of Present Illness Consult date: 12/11/22 Reason for Consult: Dysphagia History of present illness: 62-year-old female presents to the ER last night with chest pain. Patient says she had pain that lasted for several hours after eating chicken and chicken soup. Further drinking of liquid after the pain started made the discomfort worse. There was no retching or vomiting. Gradually the symptoms have improved. She did try some solid food this morning and had very slight discomfo rt she says. She has a history of previous operative repair of a hiatal hernia by Dr. Roldan in 2019. CAT scan did not show any obvious esophageal foreign body or definite obstruction. No sizable hernia seen. We were consulted for the patient's dysphagia symptoms. Review of Systems The patient denies any acute changes in vision or hearing, no shortness of breath, no dysuria or hematuria, no headache, no runny nose, no rectal bleeding or melena, no unexplained weight loss Past Medical History Past Medical History: Osteoarthritis (OA), Sleep Apnea/CPAP/BIPAP Additional Past Medical History / Comment(s): NO CPAP, IRREGULAR HEART BEAT DURING , HX OF JAUNDICE 1973, RESTLESS LEG SYNDROME History of Any Multi-Drug Resistant Organisms: None Reported Past Surgical History: Section, Cholecystectomy, Hernia Repair, Orthopedic Surgery, Uterine Ablation Additional Past Surgical History / Comment(s): RT KNEE ARTHROSCOPY, X2, right shoulder rotator cuff repair, R foot spur removal, colonoscopy, robotic repair incarcerated paraesophageal hiatal hernia 05-19-19, EGD Past Anesthesia/Blood Transfusion Reactions: Motion Sickness, Postoperative Nausea & Vomiting (PONV) Additional Past Anesthesia/Blood Transfusion Reaction / Comm: mother had no problems with prior blood transfusion,no hx blood transfusion Past Psychological History: ADD/ADHD Additional Psychological History / Comment(s): Pt resides with her spouse. She is independent. Smoking Status: Never smoker Past Alcohol Use History: None Reported Past Drug Use History: None Reported - Past Family History Father Family Medical History: Musculoskeletal Disorder, Neurologic Disorder Additional Family Medical History / Comment(s): Father of Brenna Gherigs disease in his 60's Mother Family Medical History: Diabetes Mellitus, Hypertension Additional Family Medical History / Comment(s): Mother of Mylodysplasia at the age of 80 yrs. Medications and Allergies Home Medications Medication Instructions Recorded Confirmed Type cilostazoL [Pletal] 100 mg PO HS 03/16/14 12/11/22 History Zolpidem Tartrate [Zolpidem 12.5 mg PO HS PRN 04/21/16 12/11/22 History Tartrate ER] Atorvastatin [Lipitor] 20 mg PO HS #30 tab 04/24/16 12/11/22 Rx Multivitamins, Thera [Multivitamin 1 tab PO HS 03/28/20 12/11/22 History (formulary)] Cyanocobalamin (Vitamin B-12) 1,000 mcg PO HS 12/11/22 12/11/22 History [Vitamin B-12] Dextroamphetamine/Amphetamine 20 mg PO DAILY PRN 12/11/22 12/11/22 History [Adderall] Gabapentin [Neurontin] 100 mg PO BID PRN 12/11/22 12/11/22 History Glucosamine/Chondro Rain A [Cosamin 2 tab PO HS 12/11/22 12/11/22 History Ds Tablet] Ibuprofen [Motrin Ib] 800 mg PO Q8H PRN 12/11/22 12/11/22 History Pantoprazole Sodium [Protonix] 40 mg PO DAILY #30 tab 12/11/22 Rx diphenhydrAMINE HCL [Benadryl] 25 mg PO HS 12/11/22 12/11/22 History Allergies Allergy/AdvReac Type Severity Reaction Status Date / Time quinine Allergy Severe Rash/Hives/lupus Verified 12/11/22 07:10 like symptoms Surgical - Exam Vital Signs Temp Pulse Resp BP Pulse Ox 98.0 F 66 18 185/93 96 12/10/22 20:37 12/10/22 20:37 12/10/22 20:37 12/10/22 20:37 12/10/22 20:37 Physical exam: General: Well-developed, well-nourished HEENT: Normocephalic, sclerae nonicteric Abdomen: Nontender, nondistended Extremities: No edema Neuro: Alert and oriented Results - Labs 12/10/22 20:55 12/10/22 20:55 Abnormal Lab Results - Last 24 Hours (Table) 12/10/22 12/10/22 12/10/22 Range/Units 20:55 20:55 20:55 D-Dimer 0.66 H (<0.60) mg/L FEU Sodium 136 L (137-145) mmol/L BUN 20 H (7-17) mg/dL HDL Cholesterol 70.70 H (40.00-60.00) mg/dL Diabetes panel 12/10/22 12/10/22 Range/Units 20:55 20:55 Sodium 136 L (137-145) mmol/L Potassium 4.2 (3.5-5.1) mmol/L Chloride 106 (98-107) mmol/L Carbon Dioxide 23 (22-30) mmol/L BUN 20 H (7-17) mg/dL Creatinine 0.62 (0.52-1.04) mg/dL Glucose 91 (74-99) mg/dL Calcium 9.0 (8.4-10.2) mg/dL AST 30 (14-36) U/L ALT 27 (4-34) U/L Alkaline Phosphatase 89 (38-126) U/L Total Protein 6.4 (6.3-8.2) g/dL Albumin 3.8 (3.5-5.0) g/dL Triglycerides 68.50 (0.00-149.00) mg/dL HDL Cholesterol 70.70 H (40.00-60.00) mg/dL Calcium panel 12/10/22 Range/Units 20:55 Calcium 9.0 (8.4-10.2) mg/dL Albumin 3.8 (3.5-5.0) g/dL Pituitary panel 12/10/22 Range/Units 20:55 Sodium 136 L (137-145) mmol/L Potassium 4.2 (3.5-5.1) mmol/L Chloride 106 (98-107) mmol/L Carbon Dioxide 23 (22-30) mmol/L BUN 20 H (7-17) mg/dL Creatinine 0.62 (0.52-1.04) mg/dL Glucose 91 (74-99) mg/dL Calcium 9.0 (8.4-10.2) mg/dL Adrenal panel 12/10/22 Range/Units 20:55 Sodium 136 L (137-145) mmol/L Potassium 4.2 (3.5-5.1) mmol/L Chloride 106 (98-107) mmol/L Carbon Dioxide 23 (22-30) mmol/L BUN 20 H (7-17) mg/dL Creatinine 0.62 (0.52-1.04) mg/dL Glucose 91 (74-99) mg/dL Calcium 9.0 (8.4-10.2) mg/dL Total Bilirubin 0.4 (0.2-1.3) mg/dL AST 30 (14-36) U/L ALT 27 (4-34) U/L Alkaline Phosphatase 89 (38-126) U/L Total Protein 6.4 (6.3-8.2) g/dL Albumin 3.8 (3.5-5.0) g/dL Assessment and Plan (1) Dysphagia Narrative/Plan: 62-year-old female with dysphagia and chest pain. Suspect transient foreign body. By the patient's history it appears the foreign body has likely passed at this time. Options of trial of diet, esophagram, EGD reviewed. She would like to try eating tonight. I would be comfortable with discharge and outpatient follow-up if she tolerates regular food without discomfort or dysphagia. In the event that symptoms recur would proceed with EGD tomorrow. Current Visit: No Status: Acute Code(s): R13.10 - DYSPHAGIA, UNSPECIFIED SNOMED Code(s): 34804126
[2022-12-11] MEDS ORDERED: GLUCOSAMINE PO SCH (21:00)
[2022-12-11] MEDS ORDERED: CHONDRO SU A PO SCH (21:00)
[2022-12-11] MEDS ORDERED: cilostazoL 100 MG TAB PO SCH (21:00)
[2022-12-11] MEDS ORDERED: CYANOCOBALAMIN 500 MCG TAB PO SCH (21:00)
[2022-12-11] MEDS ORDERED: ATORVASTATIN 20 MG TAB PO SCH (21:00)
[2022-12-11] MEDS ORDERED: MULTIVITAMINS, THERA 1 EACH TAB PO SCH (21:00)
[2022-12-11] MEDS ORDERED: diphenhydrAMINE 25 MG CAP PO SCH (21:00)
== END 2022-12-11 18:43 | disposition home or self-care (01) ==
LOC: EC 20:18 → 6NMEDSUR 23:16
PROVIDERS: ADMIT Family Medicine; ATTEND Family Medicine
DX: R07.89 Other chest pain (principal); R13.10 Dysphagia, unspecified; K57.30 Diverticulosis of large intestine without perforation or abscess without bleeding; G47.33 Obstructive sleep apnea (adult) (pediatric); I44.30 Unspecified atrioventricular block; I49.9 Cardiac arrhythmia, unspecified; M19.90 Unspecified osteoarthritis, unspecified site; G25.81 Restless legs syndrome; F90.9 Attention-deficit hyperactivity disorder, unspecified type; K44.9 Diaphragmatic hernia without obstruction or gangrene; R91.8 Other nonspecific abnormal finding of lung field; K21.9 Gastro-esophageal reflux disease without esophagitis; G62.9 Polyneuropathy, unspecified; E78.5 Hyperlipidemia, unspecified; E66.01 Morbid (severe) obesity due to excess calories; Z68.41 Body mass index [BMI] 40.0-44.9, adult; Z79.899 Other long term (current) drug therapy; Z88.8 Allergy status to other drugs, medicaments and biological substances; Z90.49 Acquired absence of other specified parts of digestive tract; Z98.891 History of uterine scar from previous surgery; Z98.890 Other specified postprocedural states; Z82.0 Family history of epilepsy and other diseases of the nervous system; Z83.3 Family history of diabetes mellitus; Z82.49 Family history of ischemic heart disease and other diseases of the circulatory system; Z83.2 Family history of diseases of the blood and blood-forming organs and certain disorders involving the immune mechanism
CPT/HCPCS: 96374; 99285; 36415; 93005 ×2; 85379; 80061; 80053; 83735; 84484 ×2; 85025; 85610; 85730; 71046; 71275; G0378 ×2; C9113; Q9967

== ENCOUNTER 2023-07-02 07:10 | Day surgery (SDC) | payer MEDICAID ==
[2023-07-02] MEDS ORDERED: LACTATED RINGERS 1,000 ML IV SCH (07:29)
[2023-07-02] MEDS ORDERED: LACTATED RINGERS 1,000 ML IV ONE (07:30)
--- NOTE | 2023-07-02 07:38 | P.GSHP ---
History of Present Illness H&P Date: 07/02/23 CHIEF COMPLAINT: GERD and colon screen HISTORY OF PRESENT ILLNESS: The patient is a 62-year-old female who presents with gastroesophageal reflux disease and need for colon screen. Upper and lower endoscopy were offered for further evaluation and management. PAST MEDICAL HISTORY: Please see list. PAST SURGICAL HISTORY: Please see list. MEDICATIONS: Please see list. ALLERGIES: Please see list. SOCIAL HISTORY: No illicit drug use FAMILY HISTORY: No reports of Crohn disease or ulcerative colitis. REVIEW OF ORGAN SYSTEMS: CONSTITUTIONAL: No reports of fevers or chills. GI: Denies any blood in stools or constipation. PHYSICAL EXAM: VITAL SIGNS: Stable GENERAL: Well-developed pleasant in no acute distress. HEENT: No scleral icterus. Extraocular movements grossly intact. Moist buccal mucosa. NECK: Supple without lymphadenopathy. CHEST: Unlabored respirations. Equal bilateral excursions. CARDIOVASCULAR: Regular rate and rhythm. Distal 2+ pulses. ABDOMEN: Soft, nondistended. MUSCULOSKELETAL: No clubbing, cyanosis, or edema. ASSESSMENT: 1. Gastroesophageal reflux disease 2. Colon screen. PLAN: 1. Recommend proceeding with an upper and lower endoscopy Past Medical History Past Medical History: Hyperlipidemia, Osteoarthritis (OA), Sleep Apnea/CPAP/BIPAP Additional Past Medical History / Comment(s): NO CPAP, IRREGULAR HEART BEAT DURING , HX OF JAUNDICE 1973, RESTLESS LEG SYNDROME- pt takes pletal for 15 yrs for leg cramps. pain after eating, difficulty swallowing and bowel issues. hx of kidney stones. History of Any Multi-Drug Resistant Organisms: None Reported Past Surgical History: Section, Cholecystectomy, Hernia Repair, Orthopedic Surgery, Uterine Ablation Additional Past Surgical History / Comment(s): RT KNEE ARTHROSCOPY, X2, right shoulder rotator cuff repair, R foot spur removal, colonoscopy, robotic repair incarcerated paraesophageal hiatal hernia 05-19-19, EGD Past Anesthesia/Blood Transfusion Reactions: Postoperative Nausea & Vomiting (PONV) Additional Past Anesthesia/Blood Transfusion Reaction / Comment(s): mother had no problems with prior blood transfusion,no hx blood transfusion. pt has not had any blood transfusions Smoking Status: Never smoker - Past Family History Father Family Medical History: Musculoskeletal Disorder, Neurologic Disorder Additional Family Medical History / Comment(s): Father of Brenna Gherigs disease in his 60's Mother Family Medical History: Diabetes Mellitus, Hypertension Additional Family Medical History / Comment(s): Mother of Mylodysplasia at the age of 80 yrs. Medications and Allergies Home Medications Medication Instructions Recorded Confirmed Type RX: cilostazoL [Pletal] 100 mg PO HS 03/16/14 07/02/23 History RX: Zolpidem Tartrate [Zolpidem 12.5 mg PO HS 04/21/16 07/02/23 History Tartrate ER] RX: Atorvastatin [Lipitor] 20 mg PO HS #30 tab 04/24/16 07/02/23 Rx RX: Multivitamins, Thera 1 tab PO HS 03/28/20 07/02/23 History [Multivitamin (formulary)] Pantoprazole Sodium [Protonix] 40 mg PO DAILY #30 tab 12/11/22 07/02/23 Rx RX: Dextroamphetamine/Amphetamine 20 mg PO DAILY PRN 12/11/22 07/02/23 History [Adderall] RX: Gabapentin [Neurontin] 100 mg PO BID PRN 12/11/22 07/02/23 History RX: Glucosamine/Chondro Rain A 2 tab PO HS 12/11/22 07/02/23 History [Cosamin Ds Tablet] RX: Ibuprofen [Motrin Ib] 800 mg PO Q8H PRN 12/11/22 07/02/23 History RX: diphenhydrAMINE HCL [Benadryl] 25 mg PO HS 12/11/22 07/02/23 History Allergies Allergy/AdvReac Type Severity Reaction Status Date / Time quinine Allergy Severe Rash/Hives/lupus Verified 07/02/23 07:31 like symptoms
[2023-07-02] MEDS ORDERED: LIDOCAINE 1% INJ 10MG/ML (20 ML MDV) ONE (08:04)
[2023-07-02] MEDS ORDERED: PROPOFOL 10 MG/ML 20 ML VIAL IV ONE (08:04)
[2023-07-02 08:05] VITALS: TEMP 98.1
--- NOTE | 2023-07-02 08:40 | P.PCN ---
Date of Procedure: 07/02/23 Description of Procedure: PREOPERATIVE DIAGNOSIS: Dysphagia Gastroesophageal reflux disease. Status post sleeve gastrectomy. Epigastric abdominal pain. POSTOPERATIVE DIAGNOSIS: Status post sleeve gastrectomy. Gastroesophageal reflux disease. Acute gastric ulcer with bleeding Erosive esophagitis, chronic. Diaphragmatic hiatal hernia without obstruction. Acute superficial gastritis with bleeding OPERATION: Esophagogastroduodenoscopy with cold forceps biopsies along the antrum, esophagus and duodenum SURGEON: Jojo Mclaughlin MD ANESTHESIA: MAC. INDICATIONS: The patient is a 61-year-old female who presents with dysphagia, gastroesophageal reflux disease, a history of sleeve gastrectomy with abdominal pain. She is over 5 years out from her bariatric procedure. Benefits and risks of the procedure were described. Informed consent was obtained. DESCRIPTION: The patient was brought into the endoscopy suite and laid in the left lateral decubitus position. An Olympus gastroscope was passed along the posterior oropharynx down to the distal esophagus where the squamocolumnar junction was at 35 centimeters from the incisors remarkable for chronic erosive esophagitis, LA grade B without ulceration. The stomach was entered where she had a 2-cm hiatal hernia with a diaphragmatic hiatus found at 37 cm. The sleeve reservoir moderately large allowing easy retroflexion of the scope to view the lower esophageal valve. Acute bleeding from gastritis was found along the antrum with cold biopsies obtained. The first through third portion of the duodenum was examined and biopsies. The scope again had easily retroflexed along the antrum. The stomach was desufflated. The patient tolerated the procedure well. FINDINGS: Acute gastric ulceration with bleeding found along the gastric cardia No corkscrewing sleeve gastrectomy. Squamocolumnar junction at 35 cm from the incisors. Diaphragmatic hiatus at 37 cm. Moderate large gastric reservoir with prior history of sleeve gastrectomy allowing easy retroflexion of the gastroscope to view the lower esophageal valve. Hiatal hernia 2 cm, fixed. LA grade B erosive esophagitis, biopsies obtained Biopsies obtained duodenum Acute gastritis with bleeding, biopsies obtained RECOMMENDATIONS: May benefit from antireflux operation. Omeprazole and Carafate therapy for 2 weeks
[2023-07-02 08:47] VITALS: RESP 16
--- NOTE | 2023-07-02 08:47 | P.PCN ---
Date of Procedure: 07/02/23 Description of Procedure: PREOPERATIVE DIAGNOSIS: Colonoscopy screening POSTOPERATIVE DIAGNOSIS: Tubular adenoma cecum Pandiverticulosis Sigmoid diverticulosis Internal hemorrhoids, grade 2 OPERATION: Colonoscopy to the ileocecal valve and appendiceal orifice, cecum Colonoscopy with cold forceps biopsy SURGEON: Jojo Mclaughlin MD. ANESTHESIA: MAC. INDICATIONS: The patient is an 62-year-old male who presents for colonoscopy screening. Last over 5 years ago. Benefits and risks were described and informed consent was obtained. DESCRIPTION OF PROCEDURE: The patient had undergone Sutab prep. The patient had been brought into the operating room and laid in the left lateral decubitus position. After adequate intravenous sedation, the rectum was examined with 2% lidocaine jelly. The prostate was unremarkable. External hemorrhoids were encountered. The rectal tone was within normal limits. No lesions were palpated in the rectal vault. An Olympus colonoscope was advanced until the cecum, ileocecal valve and appendiceal orifice were clearly viewed. The prep was good. Sigmoid diverti culosis and pandiverticulosis was encountered. Colonic polyps were found and removed. No evidence of focal colitis was found. Retroflexion of the scope demonstrated grade 2 internal hemorrhoids without active bleeding or inflammation. The colon was desufflated. The patient had tolerated the procedure well. Withdrawal time was over 6 minutes. FINDINGS: Aronchick preparation quality scale 1+ (1-5) Internal hemorrhoids, grade 2 External hemorrhoids, grade 2. No arteriovenous malformations. Sigmoid diverticulosis severe with pandiverticulosis severe Removal of 1 polyps: - Cold forceps biopsy at cecum, 4 mm adenoma No focal colitis. RECOMMENDATIONS: Repeat colonoscopy 3 years, 2025 Plan - Discharge Summary Discharge Rx Participant: Yes New Discharge Prescriptions: New Sucralfate [Carafate] 1 gm PO BID #30 tablet Continue cilostazoL [Pletal] 100 mg PO HS Zolpidem Tartrate [Zolpidem Tartrate ER] 12.5 mg PO HS Atorvastatin [Lipitor] 20 mg PO HS #30 tab Multivitamins, Thera [Multivitamin (formulary)] 1 tab PO HS Glucosamine/Chondro Rain A [Cosamin Ds Tablet] 2 tab PO HS Gabapentin [Neurontin] 100 mg PO BID PRN PRN Reason: Pain Dextroamphetamine/Amphetamine [Adderall] 20 mg PO DAILY PRN PRN Reason: adhd diphenhydrAMINE HCL [Benadryl] 25 mg PO HS Pantoprazole Sodium [Protonix] 40 mg PO DAILY #30 tab Discontinued Ibuprofen [Motrin Ib] 800 mg PO Q8H PRN PRN Reason: Pain Discharge Medication List cilostazoL [Pletal] 100 mg PO HS 03/16/14 [History] Zolpidem Tartrate [Zolpidem Tartrate ER] 12.5 mg PO HS 04/21/16 [History] Atorvastatin [Lipitor] 20 mg PO HS #30 tab 04/24/16 [Rx] Multivitamins, Thera [Multivitamin (formulary)] 1 tab PO HS 03/28/20 [History] Dextroamphetamine/Amphetamine [Adderall] 20 mg PO DAILY PRN 12/11/22 [History] Gabapentin [Neurontin] 100 mg PO BID PRN 12/11/22 [History] Glucosamine/Chondro Rain A [Cosamin Ds Tablet] 2 tab PO HS 12/11/22 [History] Pantoprazole Sodium [Protonix] 40 mg PO DAILY #30 tab 12/11/22 [Rx] diphenhydrAMINE HCL [Benadryl] 25 mg PO HS 12/11/22 [History] Sucralfate [Carafate] 1 gm PO BID #30 tablet 07/02/23 [Rx] [facility]Ref[place] Patient Instructions/Handouts: Peptic Ulcer (DC), Hiatal Hernia (DC), Diverticulosis Diet (GEN), Colorectal Polyps (GEN) Activity/Diet/Wound Care/Special Instructions: Repeat colonoscopy in 3 years, 2025 Discharge Disposition: HOME SELF-CARE
[2023-07-02 09:08] VITALS: BP 134/72; PULSE 67
--- NOTE | 2023-07-02 09:59 | P.PCN ---
Date of Procedure: 07/02/23 Description of Procedure: PREOPERATIVE DIAGNOSIS: Dysphagia Gastroesophageal reflux disease. Epigastric abdominal pain. POSTOPERATIVE DIAGNOSIS: Gastroesophageal reflux disease. Acute gastric ulcer with bleeding Erosive esophagitis, chronic. Diaphragmatic hiatal hernia without obstruction. Acute superficial gastritis with bleeding OPERATION: Esophagogastroduodenoscopy with cold forceps biopsies along the antrum, esophagus and duodenum SURGEON: Jojo Mclaughlin MD ANESTHESIA: MAC. INDICATIONS: The patient is a 61-year-old female who presents with dysphagia, gastroesophageal reflux disease, a history of hiatal hernia repair with abdominal pain. Benefits and risks of the procedure were described. Informed consent was obtained. DESCRIPTION: The patient was brought into the endoscopy suite and laid in the left lateral decubitus position. An Olympus gastroscope was passed along the posterior oropharynx down to the distal esophagus where the squamocolumnar junction was at 35 centimeters from the incisors remarkable for chronic erosive esophagitis, LA grade B without ulceration. The stomach was entered where she had a 2-cm hiatal hernia with a diaphragmatic hiatus found at 37 cm. Acute bleeding from gastritis was found along the antrum with cold biopsies obtained. The first through third portion of the duodenum was examined and biopsies. The scope again had easily retroflexed along the antrum. The stomach was desufflated. The patient tolerated the procedure well. FINDINGS: Acute gastric ulceration with bleeding found along the gastric cardia Squamocolumnar junction at 35 cm from the incisors. Diaphragmatic hiatus at 37 cm. Hiatal hernia 2 cm, fixed. LA grade B erosive esophagitis, biopsies obtained Biopsies obtained duodenum Acute gastritis with bleeding, biopsies obtained RECOMMENDATIONS: May benefit from antireflux operation. Omeprazole and Carafate therapy for 2 weeks Additional CC's: Chuck Bradford
== END 2023-07-02 09:47 | disposition home or self-care (01) ==
LOC: ORWHC2ENDO 07:10
PROVIDERS: ATTEND Surgery Plastic and Reconstructive Surgery
DX: Z12.11 Encounter for screening for malignant neoplasm of colon (principal); K29.50 Unspecified chronic gastritis without bleeding; K21.00 Gastro-esophageal reflux disease with esophagitis, without bleeding; D12.0 Benign neoplasm of cecum; D72.820 Lymphocytosis (symptomatic); K22.10 Ulcer of esophagus without bleeding; K64.1 Second degree hemorrhoids; K57.30 Diverticulosis of large intestine without perforation or abscess without bleeding; K44.9 Diaphragmatic hernia without obstruction or gangrene; E78.5 Hyperlipidemia, unspecified; G25.81 Restless legs syndrome; G47.30 Sleep apnea, unspecified; M19.90 Unspecified osteoarthritis, unspecified site; Z88.8 Allergy status to other drugs, medicaments and biological substances; Z90.49 Acquired absence of other specified parts of digestive tract; Z98.890 Other specified postprocedural states
CPT/HCPCS: 88305; 45380; 43239; J2001; J2704

== ENCOUNTER → 2023-09-22 | Outpatient (CLI) | payer MEDICAID ==
--- NOTE | 2023-09-24 08:41 | MR ---
EXAMINATION TYPE: MR shoulder LT wo con DATE OF EXAM: 09/22/2023 COMPARISON: MRI left shoulder 2016. Outside left shoulder x-ray September 16, 2023 HISTORY: Left shoulder pain on and off for 7-8 years TECHNIQUE: Multiplanar, multisequence imaging of the left shoulder is performed without contrast. FINDINGS: Rotator Cuff: Supraspinatus and infraspinatus tendons are intact. Slight increased signal along the s upraspinatus tendon remains present. Subscapularis tendon is intact. Rotator cuff muscle bulk is pres erved. Acromioclavicular Joint: Moderate narrowing with subchondral cystic changes present. Glenohumeral Joint: Small joint effusion. No significant spurring. Labrum: Blunting and increased signal superior labrum consistent with degenerative tearing. Biceps Tendon: The long head of biceps is in normal location within bicipital groove. Bone marrow signal: No focal abnormal marrow signal is appreciated. Other: No additional significant abnormality is appreciated. IMPRESSION: Some persistent tendinosis of the supraspinatus tendon. No significant new tears are pres ent. Degenerative tearing of the superior labrum. AC joint arthropathy redemonstrated. No significant change from prior MRI.
== END | disposition home or self-care (01) ==
LOC: RADMRIMAIN 20:45
PROVIDERS: ATTEND Orthopaedic Surgery
DX: M19.012 Primary osteoarthritis, left shoulder (principal); M67.814 Other specified disorders of tendon, left shoulder

== ENCOUNTER → 2023-09-29 | Outpatient (CLI) | payer MEDICAID ==
[2023-09-29 16:52] LABS: Basophils # (A) 0.07 X 10*3/uL (0.00-0.10); Basophils % (A) 0.9 %; Eosinophils # (A) 0.33 X 10*3/uL (0.04-0.35); Eosinophils % (A) 4.5 %; HCT 42.9 % (37.2-46.3); HGB 14.2 g/dL (12.0-15.0); Lymphocytes % (A) 29.7 %; MCH 29.1 pg (27.0-32.0); MCHC 33.1 g/dL (32.0-37.0); MCV 87.9 FL (80.0-97.0); Mean Platelet Volume 9.2 FL (9.5-12.2); Monocytes # (A) 0.62 X 10*3/uL (0.20-1.00); Monocytes % (A) 8.4 %; NRBC Per 100 WBC 0 X 10*3/uL (0.00-0.01); Neutrophils # (A) 4.17 X 10*3/uL (1.80-7.70); Neutrophils % (A) 56.2 %; Platelet Count 345 X 10*3/uL (140-440); RBC 4.88 X 10*6/uL (4.10-5.20); RDW 13.2 % (11.5-14.5); WBC 7.41 X 10*3/uL (4.50-10.00)
[2023-09-29 21:05] LABS: Potassium 4.8 mmol/L (3.5-5.5)
== END | disposition home or self-care (01) ==
LOC: LABPAT 13:31
PROVIDERS: ATTEND Orthopaedic Surgery
DX: Z01.812 Encounter for preprocedural laboratory examination (principal); M75.42 Impingement syndrome of left shoulder
CPT/HCPCS: 36415; 80051; 85025; 93005

== ENCOUNTER → 2023-10-07 | Outpatient (CLI) | payer MEDICAID ==
--- NOTE | 2023-10-08 08:53 | MM ---
Reason for Exam: Screening (asymptomatic). Last mammogram was performed 4 year(s) and 1 month(s) ago. Patient History: Menarche at age 15. First Full-Term at age 26. Postmenopausal. Patient has history of breast feeding. Maternal aunt had breast cancer. Paternal cousin had breast cancer. Son had breast cancer, age 28. Risk Values: Eulalia 5 year model risk: 2.9%. NCI Lifetime model risk: 11.3%. Prior Study Comparison: 02/28/2010 Bilateral Screening Mammogram, [facility]. 06/06/2015 Bilateral Screening Mammogram, [facility]. 09/01/2019 Bilateral Screening Mammogram, [facility]. Tissue Density: The breast tissue is almost entirely fat. Findings: Analyzed By CAD. There is no suspicious group of microcalcifications or new suspicious mass. Overall Assessment: Negative, BI-RAD 1 Management: Screening Mammogram of both breasts in [address] [facility] will attempt to contact patient to return for supplemental views and ultrasound if indicated. Patient should continue monthly self-breast exams. A clinical breast exam by your physician is recommended on an annual basis. This exam should not preclude additional follow-up of suspicious palpable abnormalities. Note on Eulalia scores and lifetime risk: 1. A Eulalia score greater than 3% is considered moderate risk. If this is the case, consider specialist referral to assess eligibility for a risk reducing agent. 2. If overall lifetime risk for the development of breast cancer is 20% or higher, the patient may qualify for future screening with alternating mammogram and breast MRI. Electronically signed and approved by: Rainer Ruvalcaba DO
== END | disposition home or self-care (01) ==
LOC: RADMAMWWP 08:43
PROVIDERS: ATTEND Family Medicine
DX: Z12.31 Encounter for screening mammogram for malignant neoplasm of breast (principal); Z80.3 Family history of malignant neoplasm of breast; Z78.0 Asymptomatic menopausal state
CPT/HCPCS: 77063; 77067

== ENCOUNTER → 2023-11-23 | Outpatient (CLI) | payer MEDICAID ==
[2023-11-23 20:35] LABS: Basophils # (A) 0.06 X 10*3/uL (0.00-0.10); Basophils % (A) 0.9 %; Eosinophils # (A) 0.43 X 10*3/uL (0.04-0.35); Eosinophils % (A) 6.4 %; HCT 43.9 % (37.2-46.3); HGB 14.4 g/dL (12.0-15.0); Lymphocytes # (A) 2.42 X 10*3/uL (0.90-5.00); Lymphocytes % (A) 36.1 %; MCH 29.1 pg (27.0-32.0); MCHC 32.8 g/dL (32.0-37.0); MCV 88.9 FL (80.0-97.0); Mean Platelet Volume 9.3 FL (9.5-12.2); Monocytes # (A) 0.59 X 10*3/uL (0.20-1.00); Monocytes % (A) 8.8 %; NRBC Per 100 WBC 0 X 10*3/uL (0.00-0.01); Neutrophils % (A) 47.7 %; Platelet Count 343 X 10*3/uL (140-440); RBC 4.94 X 10*6/uL (4.10-5.20); WBC 6.71 X 10*3/uL (4.50-10.00)
[2023-11-23 21:55] LABS: Anion Gap 11.7 mmol/L (4.00-12.00); Carbon Dioxide 25.3 mmol/L (21.6-31.8); Potassium 4.7 mmol/L (3.5-5.5)
== END | disposition home or self-care (01) ==
LOC: LABPAT 13:51
PROVIDERS: ATTEND Orthopaedic Surgery
DX: Z01.812 Encounter for preprocedural laboratory examination (principal); M75.42 Impingement syndrome of left shoulder
CPT/HCPCS: 80051; 85025

== ENCOUNTER 2023-12-03 07:42 | Day surgery (SDC) | payer MEDICAID ==
[2023-11-30 15:10] VITALS: BMI 38.7
--- NOTE | 2023-12-02 23:27 | HP ---
HISTORY AND PHYSICAL DATE OF SURGERY: 12/03/2023. HISTORY OF PRESENT ILLNESS: Chiara Olivier is a 63-year-old patient, who was seen with progressive left shoulder pain. We discussed options regarding treatment. She elected to proceed with left shoulder arthroscopy. Consent was obtained. PAST MEDICAL HISTORY: Hyperlipidemia. PAST SURGICAL HISTORY: Right shoulder arthroscopy, section, hiatal herniorrhaphy, uterine ablation, cholecystectomy. DAILY MEDICATIONS: 1. Adderall. 2. Ibuprofen. 3. Atorvastatin. 4. Benadryl. ALLERGIES: Quinine. SOCIAL HISTORY: She denies tobacco use. PHYSICAL EVALUATION OF THE LEFT SHOULDER: Flexion is 130 degrees. Abduction is 120 degrees. External rotation is 40 degrees with weakness. Tenderness along the anterolateral acromion and rotator cuff insertion. Impingement is positive at 100 degrees. Cross-body adduction sign is positive. Drop- arm sign is positive. Distal neurovascular exam is intact. IMAGING STUDIES: Radiographs of the left shoulder revealed a type 2 acromion, acromioclavicular joint osteoarthritis, and cystic changes of the tuberosity. MRI of the left shoulder revealed a partial rotator cuff tendon tear, labral tear, and acromioclavicular joint osteoarthritis. IMPRESSION: 1. Left shoulder impingement with partial rotator cuff tear. 2. Left shoulder acromioclavicular joint osteoarthritis. 3. Left shoulder labral tear. 4. Hyperlipidemia. PLAN: Left shoulder arthroscopy with subacromial decompression, arthroscopic rotator cuff repair, Guido procedure and debridement. MMODL / IJN: [id number] /
[~2023-12-03 07:42] MED LIST changes: +HYDROmorphone 0.5 MG/0.5 ML SYRINGE IVP PRN; -LACTATED RINGERS 1,000 ML IV SCH
[2023-12-03] MEDS: LACTATED RINGERS 1,000 ML IV SCH (08:32)
[2023-12-03] MEDS: ONDANSETRON 4 MG/2 ML VIAL IVP ONE (08:33)
[2023-12-03] MEDS: DEXAMETHASONE SOD PHOSPHATE 4 MG/ML 1 ML VIAL IV ONE (08:33)
[2023-12-03 08:41] VITALS: RESP 16
[2023-12-03] MEDS: MIDAZOLAM 2 MG/2 ML VIAL IVP ONE (08:54)
[2023-12-03] MEDS ORDERED: PROPOFOL 10 MG/ML 20 ML VIAL IV ONE (09:14)
[2023-12-03] MEDS ORDERED: ROCURONIUM 10 MG/ML (5 ML VIAL) IV ONE (09:14)
[2023-12-03] MEDS ORDERED: GLYCOPYRROLATE 0.2 MG/ML 2 ML VIAL ONE (09:14)
[2023-12-03] MEDS ORDERED: NEOSTIGMINE 1 MG/ML 10 ML VIAL ONE (09:14)
[2023-12-03] MEDS ORDERED: BUPIVACAIN-EPI 0.5%-1:200,000 30 ML VIAL ONE (09:14)
[2023-12-03] MEDS ORDERED: fentaNYL (PF) 50 MCG/ML 2 ML AMP ONE (09:14)
[2023-12-03] MEDS ORDERED: DEXAMETHASONE SOD PHOSPHATE 4 MG/ML 1 ML VIAL ONE (09:14)
[2023-12-03] MEDS ORDERED: LIDOCAINE 1% INJ 10MG/ML (20 ML MDV) ONE (09:14)
[2023-12-03] MEDS ORDERED: SUCCINYLCHOLINE CHLORIDE 200 MG/10 ML VIAL IV ONE (09:14)
--- NOTE | 2023-12-03 10:31 | P.OP ---
Date of Procedure: 12/03/23 Preoperative Diagnosis: Left shoulder impingement Postoperative Diagnosis: 1. Left shoulder rotator cuff tear 2. Left shoulder impingement 3. Left shoulder superficial superior labral tear 4. 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 Left shoulder arthroscopic rotator cuff repair 2. Left shoulder arthroscopic subacromial decompression 3. Left shoulder arthroscopic debridement superior labral tear Implants: 1Arthrex 4.75 swivel lock anchor Anesthesia: GETA, regional (Interscalene block) Surgeon: Aamir Zendejas Chinchilla Farmer #1: Flako Purcell Estimated Blood Loss (ml): 8 Pathology: none sent Condition: stable Disposition: PACU Indications for Procedure: 63-year-old patient seen with progressive left shoulder pain. After having treatment options discussed, she elected to proceed with arthroscopy. Operative Findings: See description of procedure Description of Procedure: Patient underwent an interscalene block by department of anesthesia. The patient was then taken to the operative suite. The patient underwent a general anesthetic by the department of anesthesia. The patient was placed into a lateral position and secured. There was appropriate padding of the bony prominence. Left shoulder was then prepped and draped in normal sterile orthopedic fashion. We placed the extremity in 10 pounds of longitudinal traction. A posterior incision was now made for a posterior working portal site. The trocar and cannula were inserted into the glenohumeral joint. Arthroscopy was initiated. Spinal needle was now inserted anteriorly, to ascertain the anterior working portal site. An incision was now made in that area, a trocar was inserted followed by a probe. There was a superficial tear involving the superior labrum. There were grade III chondromalacia changes diffusely about the humeral head without significant osteochondral tears. There were grade I/II chondromalacia changes of the glenoid fossa again with no osteochondral tears. I debrided out the superficial superior labral tear. The residual labrum was again probed and was found to be stable. Long head biceps tendon appears stable. Instruments were now removed from the glenohumeral joint. Utilizing the posterior working portal site, the trocar and cannula were inserted into the subacromial space. Arthroscopy initiated. I made an incision 2 fingerbreadths lateral to the acromion. I introduced my trocar followed by my ArthroCare ablator. I now began ablating thick subacromial bursal tissue, which exposed the undersurface of the anterior acromion. There was diminished subacromial space. There was a very prominent anterior acromion. A motorized bur was introduced and a subacromial decompression was performed. I also excised some osteophytes off the inferior aspect of the distal clavicle. The AC joint was visualized and noted to be moderately arthritic. I did not think enough to warrant a Guido procedure. I turned my attention to the rotator cuff tendon. There was some partial tearing along the posterior aspect of the distal supraspinatus tendon. Upon probing the area noted a full-thickness perforation. I debrided the margins getting down to stable tendon tissue. The defect measured about 1 cm was freely mobile over the footprint. I abraded the footprint with a motorized bur. With the assistance of Bryant BAL I passed 2 inverted mattress sutures through good bites of rotator cuff tendon. I now punched a hole in the footprint area for insertion of an anchor. All 4 limbs of suture were passed through the eyelet of an Arthrex 4.75 swivel lock anchor. I placed the eyelet into our prepunched hole. I held in position while Bryant BAL tensioned all 4 limbs of suture and deployed the anchor with good fixation noted. All residual suture limbs were now clipped. We had good compression of the tendon along the entire footprint. Instruments now removed from the portal sites. All portal sites were approximated with nylon suture. Sterile dressings were applied followed by a shoulder sling. Flako BAL assisted in this complex case. The patient was awakened, transferred to a bed, and taken to recovery in stable condition.
[2023-12-03 10:35] VITALS: TEMP 98.4
[2023-12-03 12:24] VITALS: BP 131/81; PULSE 97
--- NOTE | 2023-12-03 19:29 | P.ANPRN ---
Procedure Note - Anesthesia - Nerve Block Performed Left Interscalene Single Time Out Performed: Yes Date of Procedure: 12/03/23 Procedure Start Time: 08:53 Procedure Stop Time: 08:59 Location of Patient: PreOp Indication: Acute Post-Operative Pain, Requested by Surgeon Sedation Type: Sedate with meaningful contact maintained Preparation: Sterile Prep Position: Supine Needle Types: Pajunk Needle Gauge: 21 Ultrasound used to visualize needle placement: Yes Ultrasound used to observe medication spread: Yes Blood Aspirated: No Pain Paresthesia on Injection Noted: No Resistance on Injection: Normal Image Stored and Saved: Yes Events: Uneventful and Well Tolerated (Ropivacaine 0.5% 20 cc plus dexamethasone 4 mg)
== END 2023-12-03 12:31 | disposition home or self-care (01) ==
LOC: OR 07:42
PROVIDERS: ATTEND Orthopaedic Surgery
DX: S43.492A Other sprain of left shoulder joint, initial encounter (principal); M75.42 Impingement syndrome of left shoulder; M19.012 Primary osteoarthritis, left shoulder; M75.102 Unspecified rotator cuff tear or rupture of left shoulder, not specified as traumatic; E78.5 Hyperlipidemia, unspecified; Z79.1 Long term (current) use of non-steroidal anti-inflammatories (NSAID); Z79.899 Other long term (current) drug therapy; Z90.49 Acquired absence of other specified parts of digestive tract; X58.XXXA Exposure to other specified factors, initial encounter
CPT/HCPCS: 64415; 29824; 29826; 29827; 29807; C1713 ×2; J2250; J0330; J1100; J2710; J0690; J2405; J2001; J3010; J2704

== ENCOUNTER 2024-04-24 05:19 | Emergency (ER) | payer MEDICAID ==
[2024-04-24] MEDS ORDERED: ACETAMINOPHEN TAB 500 MG TAB ONE (15:34)
== END 2024-04-24 16:48 | disposition home or self-care (01) ==
LOC: EC 05:19 → EDSTATUS 16:36 → EC 16:48
DX: S32.89XA Fracture of other parts of pelvis, initial encounter for closed fracture
CPT/HCPCS: 99283